=== PATIENT | female | born 1965 | race Caucasian/White ===

== ENCOUNTER 2017-03-14 06:42 | Emergency (ER) | payer OTHER ==
[~2017-03-14] VITALS: Ht 154.9 cm; Wt 102.1 kg
[~2017-03-14 06:42] MED LIST: ALBU0.084; AMIT PO; ASPI-231 PO; ENAL5TAB92 PO; FLUT500M2 INH; HOME O2; HYDR25TA4 PO; LEVO25TA9 PO; LEVO750T2 PO; METH40TA13 PO; METO-169 PO; MULTTAB61 PO; NIFE30TA76 PO; PANT40TA2 PO
[2017-03-14 07:39] LABS: Basophils # (auto) 0.1 uL; CONDITION Y; Eosinophils # (auto) 0.1 uL; Eosinophils % (auto) 1.9 % (0.0-7.0); Hematocrit 45.1 % (36.0-46.0); Hemoglobin 14.9 g/dL (12.2-16.2); Lymphocytes # (auto) 2.4 uL; Lymphocytes % (auto) 40.8 % (10.0-50.0); Mean Corpuscular Hemoglobin 29.5 pg (28.0-32.0); Mean Corpuscular Hgb Conc. 32.9 g/dL (32.0-36.0); Mean Corpuscular Volume 89.7 fL (80.0-100.0); Mean Platelet Volume 8.2 fL (7.4-10.4); Monocytes # (auto) 0.5 uL; Monocytes % (auto) 7.9 % (0.0-12.0); Neutrophils # (auto) 2.9 uL; Neutrophils % (auto) 48.4 % (37.0-80.0); Platelet Count (auto) 238 10^3/uL (140-450); Red Cell Distribution Width 15.9 % (11.6-16.0)
[2017-03-14 07:52] LABS: Albumin 3.7 g/dL (3.4-5.0); BUN/Creatinine Ratio 25.4; Bilirubin, Total 0.5 mg/dL (0.2-1.0); Calcium 8.8 mg/dL (8.5-10.1); Potassium 4.1 mmol/L (3.5-5.1); Total Protein 8.1 g/dL (6.4-8.2)
[2017-03-14] MEDS ORDERED: HYDROcodone-ACET 10/325MG TAB PO ONE (09:15)
[2017-03-14 09:50] VITALS: BP 131/77
== END 2017-03-14 10:11 | disposition home or self-care (01) ==
LOC: ER 06:44
DX: L03.115 Cellulitis of right lower limb (principal); F17.210 Nicotine dependence, cigarettes, uncomplicated; J44.9 Chronic obstructive pulmonary disease, unspecified; I50.9 Heart failure, unspecified; I11.0 Hypertensive heart disease with heart failure; E11.9 Type 2 diabetes mellitus without complications; E78.5 Hyperlipidemia, unspecified; E07.9 Disorder of thyroid, unspecified; Z79.82 Long term (current) use of aspirin; Z79.899 Other long term (current) drug therapy
CPT/HCPCS: 36415; 73610; 80053; 85025

== ENCOUNTER 2017-06-28 10:42 | Inpatient (IN) | payer OTHER ==
[~2017-06-28] VITALS: Ht 154.9 cm; Wt 115.9 kg
[2017-06-28] MEDS ORDERED: SODIUM CHLORIDE 0.9% 1,000 ML IVB ONE ×2 (11:28→13:27)
[2017-06-28 11:34] LABS: Urine Bilirubin Negative (Negative); Urine Blood Negative /uL (Negative); Urine Color Yellow (Yellow); Urine Glucose 2+ mg/dL (Normal); Urine Ketone Negative (Negative); Urine Mucus FEW (None Seen); Urine Nitrite Negative (Negative); Urine RBC 1 /hpf (0 - 4); Urine Squamous Epithelial Cell FEW /hpf (<5); Urine Urobilinogen Normal (Negative); Urine pH 5.5 (5.0-8.0)
[2017-06-28 11:48] LABS: Basophils # (auto) 0 uL; Basophils % (auto) 0.4 % (0.0-2.0); Eosinophils # (auto) 0 uL; Eosinophils % (auto) 0.3 % (0.0-7.0); Hematocrit 44.5 % (36.0-46.0); Hemoglobin 14.1 g/dL (12.2-16.2); Lymphocytes # (auto) 0.7 uL; Lymphocytes % (auto) 5.8 % (10.0-50.0); Mean Corpuscular Hemoglobin 29.5 pg (28.0-32.0); Mean Corpuscular Hgb Conc. 31.7 g/dL (32.0-36.0); Mean Corpuscular Volume 93.2 fL (80.0-100.0); Mean Platelet Volume 8.1 fL (6.9-10.8); Monocytes # (auto) 0.1 uL; Monocytes % (auto) 1.1 % (0.0-12.0); Neutrophils # (auto) 10.7 uL; Neutrophils % (auto) 92.4 % (37.0-80.0); Platelet Count (auto) 244 10^3/uL (140-450); Red Cell Distribution Width 15.4 % (11.8-14.3); White Blood Cell 11.6 10^3/uL (4.4-10.8)
[2017-06-28 12:01] LABS: Salicylate 2.3 mg/dL (2.8-20.0)
[2017-06-28 12:06] LABS: Acetaminophen < 2.0 ug/mL (10-30)
[2017-06-28 12:19] LABS: Albumin 3.5 g/dL (3.4-5.0); Alkaline Phosphatase 94 U/L (45-117); Anion Gap 8 (5-15); Aspartate Aminotransferase 28 U/L (15-37); BUN/Creatinine Ratio 21.6; Bilirubin, Total 0.3 mg/dL (0.2-1.0); Blood Urea Nitrogen 21 mg/dL (7-18); Calcium 8.5 mg/dL (8.5-10.1); Carbon Dioxide 36 mmol/L (21-32); Chloride 96 mmol/L (98-107); GFR African American 78 mL/min; GFR Non-African American 64 mL/min; Glucose 255 mg/dL (74-106); Potassium 3.5 mmol/L (3.5-5.1); Sodium 140 mmol/L (136-145)
[2017-06-28] MEDS ORDERED: IPRATROPIUM BROM 0.5 MG/2.5ML INH SOL NEB ONE (14:45)
[2017-06-28] MEDS ORDERED: ALBUTEROL SULF 2.5 MG/0.5ML(0.5%) NEB SOLN NEB ONE (14:45)
[2017-06-28] MEDS ORDERED: methylPREDNISolone SOD SUCC 125 MG/2 ML VL IV ONE (14:45)
[2017-06-28] MEDS ORDERED: cefTRIAXone 1GM/50ML D5W AE IV ONE (15:30)
[2017-06-28] MEDS ORDERED: NITROGLYCERIN 0.4 MG SL TAB SL PRN (16:00)
[2017-06-28] MEDS ORDERED: ALBUTEROL SULF 2.5 MG/0.5ML(0.5%) NEB SOLN NEB PRN (16:00)
[2017-06-28] MEDS ORDERED: LACTULOSE 20Gm/30ML SOLN PO PRN (16:00)
[2017-06-28] MEDS ORDERED: MORPHINE SULF INJ 2 MG/ML SYRINGE 1ML IV PRN ×2 (16:00)
[2017-06-28] MEDS ORDERED: LORazepam 0.5 MG TAB PO PRN (16:00)
[2017-06-28] MEDS ORDERED: DEXTROSE (50%) 50ML SYRG IV PRN (16:00)
[2017-06-28] MEDS: InsuLIN REG 1unit/0.01ml Soln (100units/ml) SC SCH ×2 (16:00→20:25)
[2017-06-28] MEDS ORDERED: PROMETHAZINE HCL 25 MG/ML 1ML IV PRN (16:00)
[2017-06-28] MEDS: SODIUM CHLORIDE 0.9% 1,000 ML IV SCH (16:16)
[2017-06-28] MEDS: ACCU-CHEK COMFORT CURVE STRIP VI SCH ×2 (16:21→20:25)
[2017-06-28] MEDS: AZITHROMYCIN 500MG/D5W 250ML 250 ML IV SCH (16:47)
[2017-06-28] MEDS: ACETAMINOPHEN 500 MG TAB PO PRN (16:52)
[2017-06-28] MEDS: methylPREDNISolone SOD SUCC 40 MG/ML VL IV SCH (18:15)
[2017-06-28] MEDS: IPRATROPIUM BROM 0.5 MG/2.5ML INH SOL NEB SCH (19:28)
[2017-06-28] MEDS: ALBUTEROL SULF 2.5 MG/0.5ML(0.5%) NEB SOLN NEB SCH (19:28)
[2017-06-28 21:02] VITALS: BP 130/86
[2017-06-28 21:26] VITALS: BP 110/67
[2017-06-28 22:00] VITALS: BP 110/67
[2017-06-28] MEDS: PATIENTS OWN MEDICATION (Fluticasone-Salmeterol (Advair Diskus 500/50) 1 PUFF) INH SCH (22:00)
[2017-06-28] MEDS: ENOXAPARIN SOD 40 MG/0.4 ML SYRINGE SC SCH (22:05)
[2017-06-28] MEDS: HYDROcodone-ACET 5/325MG TAB PO PRN (22:10)
[2017-06-29] MEDS: IPRATROPIUM BROM 0.5 MG/2.5ML INH SOL NEB SCH ×4 (00:21→19:58)
[2017-06-29] MEDS: ALBUTEROL SULF 2.5 MG/0.5ML(0.5%) NEB SOLN NEB SCH ×4 (00:21→19:58)
[2017-06-29] MEDS: ACCU-CHEK COMFORT CURVE STRIP VI SCH ×6 (00:29→20:21)
[2017-06-29] MEDS: InsuLIN REG 1unit/0.01ml Soln (100units/ml) SC SCH ×6 (00:29→20:22)
[2017-06-29] MEDS: methylPREDNISolone SOD SUCC 40 MG/ML VL IV SCH ×4 (00:29→16:57)
[2017-06-29 05:00] VITALS: BP 130/72
[2017-06-29] MEDS: SODIUM CHLORIDE 0.9% 1,000 ML IV SCH ×2 (05:10→16:57)
[2017-06-29] MEDS: LEVOTHYROXINE SODIUM 100 MCG TAB PO SCH (05:55)
[2017-06-29 06:13] LABS: Basophils # (auto) 0 uL; Basophils % (auto) 0.1 % (0.0-2.0); Eosinophils # (auto) 0 uL; Hematocrit 41.9 % (36.0-46.0); Hemoglobin 13.4 g/dL (12.2-16.2); Lymphocytes # (auto) 0.5 uL; Mean Corpuscular Hemoglobin 29.3 pg (28.0-32.0); Mean Corpuscular Hgb Conc. 31.9 g/dL (32.0-36.0); Mean Corpuscular Volume 91.6 fL (80.0-100.0); Mean Platelet Volume 7.8 fL (6.9-10.8); Monocytes # (auto) 0.2 uL; Monocytes % (auto) 1.5 % (0.0-12.0); Neutrophils # (auto) 11.8 uL; Neutrophils % (auto) 94.4 % (37.0-80.0); Platelet Count (auto) 238 10^3/uL (140-450); Red Cell Distribution Width 15.2 % (11.8-14.3); White Blood Cell 12.5 10^3/uL (4.4-10.8)
[2017-06-29 06:38] LABS: Chloride 101 mmol/L (98-107); Potassium 4.7 mmol/L (3.5-5.1); Sodium 141 mmol/L (136-145)
[2017-06-29 06:58] LABS: Alkaline Phosphatase 78 U/L (45-117); Anion Gap 5 (5-15); Aspartate Aminotransferase 22 U/L (15-37); BUN/Creatinine Ratio 35.6; Blood Urea Nitrogen 26 mg/dL (7-18); Calcium 8.3 mg/dL (8.5-10.1); Carbon Dioxide 35 mmol/L (21-32); GFR African American 108 mL/min; GFR Non-African American 89 mL/min; Glucose 81 mg/dL (74-106)
[2017-06-29 06:59] LABS: Bilirubin, Total 0.3 mg/dL (0.2-1.0); Cholesterol 170 mg/dL (< 200); HDL Cholesterol 53 mg/dL (40-59); LDL Cholesterol 108 mg/dL (< 100); Triglycerides 71 mg/dL (< 150)
[2017-06-29 07:00] LABS: Albumin 3.4 g/dL (3.4-5.0); Total Protein 7.6 g/dL (6.4-8.2)
[2017-06-29] MEDS: cefTRIAXone 1GM/50ML D5W 50 ML IV SCH (08:38)
[2017-06-29] MEDS ORDERED: METHADONE PO SCH (10:00)
[2017-06-29] MEDS ORDERED: ENOXAPARIN SOD 40 MG/0.4 ML SYRINGE SC SCH (10:00)
[2017-06-29] MEDS: PATIENTS OWN MEDICATION (Fluticasone-Salmeterol (Advair Diskus 500/50) 1 PUFF) INH SCH ×2 (10:00→22:00)
[2017-06-29] MEDS: AMITRIPTYLINE HCL 10 MG TAB PO SCH (10:00)
[2017-06-29] MEDS ORDERED: PANTOPRAZOLE 40 MG TAB PO SCH (10:00)
[2017-06-29] MEDS: ENOXAPARIN SOD 40 MG/0.4 ML SYRINGE SC SCH ×2 (10:19→22:13)
[2017-06-29] MEDS: ENALAPRIL MALEATE 2.5 MG TAB PO SCH (10:21)
[2017-06-29] MEDS: METOPROLOL SUCCINATE XL 50 MG TAB PO SCH (10:23)
[2017-06-29] MEDS: METHADONE HCL 10 MG TAB PO SCH (10:23)
[2017-06-29] MEDS: PANTOPRAZOLE 40 MG TAB PO SCH (10:23)
[2017-06-29] MEDS: ASPirin-EC 81 mg tab PO SCH (10:24)
[2017-06-29] MEDS: NIFEdipine ER 30 MG TAB PO SCH (10:24)
[2017-06-29] MEDS: MULTIPLE VITAMIN TAB PO SCH (10:25)
[2017-06-29] MEDS: AZITHROMYCIN 500MG/D5W 250ML 250 ML IV SCH (10:25)
[2017-06-29 10:59] LABS: B-Type Natriuretic Peptide 70.3 pg/mL (0-100); Temperature: 22.2 C (20.0-25.0)
[2017-06-29] MEDS: FUROSEMIDE 40 MG/4 ML VIAL IV SCH (11:08)
[2017-06-29] MEDS: POTASSIUM CHL 20 Meq TABLET PO SCH (11:08)
[2017-06-29] MEDS: HYDROcodone-ACET 5/325MG TAB PO PRN (11:48)
[2017-06-29 16:53] VITALS: BP 126/78
[2017-06-29 22:00] VITALS: BP 127/77
[2017-06-30] MEDS: methylPREDNISolone SOD SUCC 40 MG/ML VL IV SCH ×2 (00:23→05:51)
[2017-06-30] MEDS: ACCU-CHEK COMFORT CURVE STRIP VI SCH ×6 (00:23→20:49)
[2017-06-30] MEDS: HYDROcodone-ACET 5/325MG TAB PO PRN ×3 (00:24→22:25)
[2017-06-30] MEDS: ALBUTEROL SULF 2.5 MG/0.5ML(0.5%) NEB SOLN NEB SCH ×4 (01:02→19:24)
[2017-06-30] MEDS: IPRATROPIUM BROM 0.5 MG/2.5ML INH SOL NEB SCH ×4 (01:02→19:23)
[2017-06-30] MEDS: InsuLIN REG 1unit/0.01ml Soln (100units/ml) SC SCH ×6 (03:41→20:49)
[2017-06-30 05:00] VITALS: BP 112/77
[2017-06-30] MEDS: SODIUM CHLORIDE 0.9% 1,000 ML IV SCH ×2 (05:12→22:25)
[2017-06-30] MEDS: LEVOTHYROXINE SODIUM 100 MCG TAB PO SCH (05:52)
[2017-06-30 06:54] LABS: Basophils # (auto) 0 uL; Eosinophils # (auto) 0 uL; Hematocrit 39.7 % (36.0-46.0); Hemoglobin 12.7 g/dL (12.2-16.2); Lymphocytes # (auto) 0.6 uL; Lymphocytes % (auto) 3.2 % (10.0-50.0); Mean Corpuscular Hemoglobin 29.3 pg (28.0-32.0); Mean Corpuscular Hgb Conc. 31.9 g/dL (32.0-36.0); Mean Corpuscular Volume 91.9 fL (80.0-100.0); Monocytes # (auto) 0.4 uL; Monocytes % (auto) 2.1 % (0.0-12.0); Neutrophils # (auto) 17.9 uL; Neutrophils % (auto) 94.7 % (37.0-80.0); Platelet Count (auto) 249 10^3/uL (140-450); Red Cell Distribution Width 15.6 % (11.8-14.3); White Blood Cell 18.9 10^3/uL (4.4-10.8)
[2017-06-30 07:07] LABS: Potassium 4.9 mmol/L (3.5-5.1)
[2017-06-30 07:08] LABS: Albumin 3.4 g/dL (3.4-5.0); Calcium 8.6 mg/dL (8.5-10.1)
[2017-06-30 07:11] LABS: Bilirubin, Total 0.3 mg/dL (0.2-1.0); Total Protein 7.4 g/dL (6.4-8.2)
[2017-06-30 07:13] LABS: Temperature: 21.5 C (20.0-25.0)
[2017-06-30 09:00] VITALS: BP 131/75
[2017-06-30] MEDS: cefTRIAXone 1GM/50ML D5W 50 ML IV SCH (09:01)
[2017-06-30] MEDS: ACETAMINOPHEN 500 MG TAB PO PRN (09:02)
[2017-06-30] MEDS: AZITHROMYCIN 500MG/D5W 250ML 250 ML IV SCH (09:40)
[2017-06-30] MEDS: ASPirin-EC 81 mg tab PO SCH (09:40)
[2017-06-30] MEDS: FUROSEMIDE 40 MG/4 ML VIAL IV SCH (09:40)
[2017-06-30] MEDS: METHADONE HCL 10 MG TAB PO SCH (09:41)
[2017-06-30] MEDS: MULTIPLE VITAMIN TAB PO SCH (09:41)
[2017-06-30] MEDS: POTASSIUM CHL 20 Meq TABLET PO SCH (09:41)
[2017-06-30] MEDS: NIFEdipine ER 30 MG TAB PO SCH (09:41)
[2017-06-30] MEDS: METOPROLOL SUCCINATE XL 50 MG TAB PO SCH (09:42)
[2017-06-30] MEDS: PANTOPRAZOLE 40 MG TAB PO SCH (09:42)
[2017-06-30] MEDS: ENOXAPARIN SOD 40 MG/0.4 ML SYRINGE SC SCH ×2 (09:43→22:25)
[2017-06-30] MEDS: ENALAPRIL MALEATE 2.5 MG TAB PO SCH (09:43)
[2017-06-30] MEDS: AMITRIPTYLINE HCL 10 MG TAB PO SCH (10:00)
[2017-06-30] MEDS ORDERED: methylPREDNISolone SOD SUCC 40 MG/ML VL IV SCH (12:00)
[2017-06-30] MEDS: PIPERACILLIN-TAZOB 3.375GM 100 ML IV SCH ×2 (12:07→17:45)
[2017-06-30] MEDS: methylPREDNISolone SOD SUCC 125 MG/2 ML VL IV SCH ×2 (12:07→17:44)
[2017-06-30 13:20] VITALS: BP 130/93
[2017-06-30 13:28] LABS: Base Excess 9.7 mmol/L (-2.0-2.0); Blood 02Sat 90.7 % (96-100); Blood COHb 0.5 % (0.5-1.5); Blood MetHb 0.3 % (0.0-1.5); HCO3 37.2 mmol/L (22-26.0); HHb 9.2 % (0.0-5.0); MODE OXYMIZER; PCO2 63.7 mmHg (35.0-45.0); PCO2(T) 63.7 mmHg (35.0-45.0); PO2 62.6 mmHg (80.0-100.0); PO2(T) 62.6 mmHg (80.0-100.0); Room 0283T; Sample Type Arterial; pH 7.384 (7.350-7.450)
[2017-06-30 17:42] VITALS: BP 136/87
[2017-06-30 22:00] VITALS: BP 141/82
[2017-07-01] MEDS: PIPERACILLIN-TAZOB 3.375GM 100 ML IV SCH ×5 (00:25→23:38)
[2017-07-01] MEDS: methylPREDNISolone SOD SUCC 125 MG/2 ML VL IV SCH ×5 (00:25→23:38)
[2017-07-01] MEDS: InsuLIN REG 1unit/0.01ml Soln (100units/ml) SC SCH ×5 (00:36→22:03)
[2017-07-01] MEDS: ACCU-CHEK COMFORT CURVE STRIP VI SCH ×5 (00:36→22:03)
[2017-07-01 05:00] VITALS: BP 118/97
[2017-07-01] MEDS: LEVOTHYROXINE SODIUM 100 MCG TAB PO SCH (05:46)
[2017-07-01] MEDS: HYDROcodone-ACET 5/325MG TAB PO PRN ×2 (05:46→21:56)
[2017-07-01] MEDS: IPRATROPIUM BROM 0.5 MG/2.5ML INH SOL NEB SCH ×4 (06:33→19:52)
[2017-07-01] MEDS: ALBUTEROL SULF 2.5 MG/0.5ML(0.5%) NEB SOLN NEB SCH ×4 (06:33→19:52)
[2017-07-01] MEDS ORDERED: DEXTROSE (50%) 50ML SYRG IV PRN (07:45)
[2017-07-01 09:00] VITALS: BP 128/71
[2017-07-01] MEDS: LEVOFLOXACIN 750MG 150 ML IV SCH (09:58)
[2017-07-01] MEDS: FUROSEMIDE 40 MG/4 ML VIAL IV SCH (09:58)
[2017-07-01] MEDS: POTASSIUM CHL 20 Meq TABLET PO SCH (09:59)
[2017-07-01] MEDS: METHADONE HCL 10 MG TAB PO SCH (09:59)
[2017-07-01] MEDS: ASPirin-EC 81 mg tab PO SCH (09:59)
[2017-07-01] MEDS: MULTIPLE VITAMIN TAB PO SCH (09:59)
[2017-07-01] MEDS: METOPROLOL SUCCINATE XL 50 MG TAB PO SCH (10:00)
[2017-07-01] MEDS: AMITRIPTYLINE HCL 10 MG TAB PO SCH (10:00)
[2017-07-01] MEDS: NIFEdipine ER 30 MG TAB PO SCH (10:00)
[2017-07-01] MEDS: PANTOPRAZOLE 40 MG TAB PO SCH (10:00)
[2017-07-01] MEDS: ENOXAPARIN SOD 40 MG/0.4 ML SYRINGE SC SCH ×2 (10:01→21:55)
[2017-07-01] MEDS: ENALAPRIL MALEATE 2.5 MG TAB PO SCH (10:01)
[2017-07-01 13:00] VITALS: BP 136/81
[2017-07-01] MEDS: SODIUM CHLORIDE 0.9% 1,000 ML IV SCH ×2 (15:47→23:38)
[2017-07-01 17:00] VITALS: BP 149/93
[2017-07-01] MEDS: BUDESONIDE (INHALATION) 0.5 MG/2 ML NEB NEB SCH (19:53)
[2017-07-01 22:00] VITALS: BP 138/89
[2017-07-02] MEDS: methylPREDNISolone SOD SUCC 125 MG/2 ML VL IV SCH ×4 (06:04→23:34)
[2017-07-02] MEDS: PIPERACILLIN-TAZOB 3.375GM 100 ML IV SCH ×4 (06:04→23:34)
[2017-07-02] MEDS: LEVOTHYROXINE SODIUM 100 MCG TAB PO SCH (06:04)
[2017-07-02] MEDS: ACCU-CHEK COMFORT CURVE STRIP VI SCH ×4 (06:04→22:00)
[2017-07-02] MEDS: InsuLIN REG 1unit/0.01ml Soln (100units/ml) SC SCH ×4 (06:05→23:00)
[2017-07-02] MEDS: IPRATROPIUM BROM 0.5 MG/2.5ML INH SOL NEB SCH ×4 (06:06→19:51)
[2017-07-02] MEDS: ALBUTEROL SULF 2.5 MG/0.5ML(0.5%) NEB SOLN NEB SCH ×4 (06:06→19:52)
[2017-07-02] MEDS: HYDROcodone-ACET 5/325MG TAB PO PRN ×3 (07:58→23:02)
[2017-07-02 09:12] VITALS: BP_SYST 138; BP_SYST 142; BP_DIAS 77; BP_DIAS 78
[2017-07-02] MEDS: LEVOFLOXACIN 750MG 150 ML IV SCH (09:29)
[2017-07-02] MEDS: ENOXAPARIN SOD 40 MG/0.4 ML SYRINGE SC SCH (09:29)
[2017-07-02] MEDS: FUROSEMIDE 40 MG/4 ML VIAL IV SCH (09:29)
[2017-07-02] MEDS: ENALAPRIL MALEATE 2.5 MG TAB PO SCH (09:30)
[2017-07-02] MEDS: METHADONE HCL 10 MG TAB PO SCH (09:30)
[2017-07-02] MEDS: POTASSIUM CHL 20 Meq TABLET PO SCH (09:30)
[2017-07-02] MEDS: PANTOPRAZOLE 40 MG TAB PO SCH (09:31)
[2017-07-02] MEDS: MULTIPLE VITAMIN TAB PO SCH (09:31)
[2017-07-02] MEDS: ASPirin-EC 81 mg tab PO SCH (09:31)
[2017-07-02] MEDS: NIFEdipine ER 30 MG TAB PO SCH (09:32)
[2017-07-02] MEDS: METOPROLOL SUCCINATE XL 50 MG TAB PO SCH (09:32)
[2017-07-02] MEDS: AMITRIPTYLINE HCL 10 MG TAB PO SCH (10:00)
[2017-07-02] MEDS: BUDESONIDE (INHALATION) 0.5 MG/2 ML NEB NEB SCH ×2 (10:05→19:52)
[2017-07-02 11:38] LABS: Hematocrit 41.1 % (36.0-46.0); Hemoglobin 13.4 g/dL (12.2-16.2); Mean Corpuscular Hemoglobin 29.6 pg (28.0-32.0); Mean Corpuscular Hgb Conc. 32.5 g/dL (32.0-36.0); Mean Corpuscular Volume 90.9 fL (80.0-100.0); Mean Platelet Volume 7.7 fL (6.9-10.8); Platelet Count (auto) 236 10^3/uL (140-450); Red Cell Distribution Width 15.1 % (11.8-14.3); White Blood Cell 9.3 10^3/uL (4.4-10.8)
[2017-07-02 11:42] LABS: Metamyelocytes % 0; Myelocytes % 0; Promyelocytes % 0; Reactive Lymphocytes 0
[2017-07-02 12:23] LABS: Platelet Estimate Adequate
[2017-07-02 12:51] VITALS: BP 154/100
[2017-07-02 13:00] VITALS: BP 148/72
[2017-07-02] MEDS: SODIUM CHLORIDE 0.9% 1,000 ML IV SCH (16:19)
[2017-07-02 17:52] VITALS: BP 147/90
[2017-07-02 20:00] VITALS: BP 121/55
[2017-07-02] MEDS: ENOXAPARIN SOD 60 MG/0.6 ML SYRINGE SC SCH (22:00)
[2017-07-02 23:16] VITALS: BP 145/83
[2017-07-02] MEDS: TEMAZEPAM 15 MG CAP PO PRN (23:35)
[2017-07-03] VITALS (8 sets, daily range): BP systolic 128–158; BP diastolic 71–113
[2017-07-03] MEDS: SODIUM CHLORIDE 0.9% 1,000 ML IV SCH ×2 (02:30→16:07)
[2017-07-03] MEDS: LEVOTHYROXINE SODIUM 100 MCG TAB PO SCH (05:32)
[2017-07-03] MEDS: methylPREDNISolone SOD SUCC 125 MG/2 ML VL IV SCH ×4 (05:32→23:06)
[2017-07-03] MEDS: PIPERACILLIN-TAZOB 3.375GM 100 ML IV SCH ×4 (05:32→23:09)
[2017-07-03] MEDS: IPRATROPIUM BROM 0.5 MG/2.5ML INH SOL NEB SCH ×4 (06:10→18:47)
[2017-07-03] MEDS: ALBUTEROL SULF 2.5 MG/0.5ML(0.5%) NEB SOLN NEB SCH ×4 (06:10→18:47)
[2017-07-03] MEDS: HYDROcodone-ACET 5/325MG TAB PO PRN ×3 (06:15→23:09)
[2017-07-03] MEDS: ACCU-CHEK COMFORT CURVE STRIP VI SCH ×4 (06:25→22:00)
[2017-07-03] MEDS: InsuLIN REG 1unit/0.01ml Soln (100units/ml) SC SCH ×4 (06:25→23:06)
[2017-07-03] MEDS: BUDESONIDE (INHALATION) 0.5 MG/2 ML NEB NEB SCH ×2 (09:32→18:47)
[2017-07-03] MEDS: METOPROLOL SUCCINATE XL 50 MG TAB PO SCH (10:36)
[2017-07-03] MEDS: POTASSIUM CHL 20 Meq TABLET PO SCH (10:36)
[2017-07-03] MEDS: MULTIPLE VITAMIN TAB PO SCH (10:36)
[2017-07-03] MEDS: METHADONE HCL 10 MG TAB PO SCH (10:36)
[2017-07-03] MEDS: ASPirin-EC 81 mg tab PO SCH (10:37)
[2017-07-03] MEDS: NIFEdipine ER 30 MG TAB PO SCH (10:37)
[2017-07-03] MEDS: PANTOPRAZOLE 40 MG TAB PO SCH (10:38)
[2017-07-03] MEDS: ENALAPRIL MALEATE 2.5 MG TAB PO SCH (10:38)
[2017-07-03] MEDS: ENOXAPARIN SOD 60 MG/0.6 ML SYRINGE SC SCH ×2 (10:38→23:06)
[2017-07-03] MEDS: AMITRIPTYLINE HCL 10 MG TAB PO SCH (10:39)
[2017-07-03] MEDS: FUROSEMIDE 40 MG/4 ML VIAL IV SCH (10:39)
[2017-07-03] MEDS: LEVOFLOXACIN 750MG 150 ML IV SCH (10:39)
[2017-07-03] MEDS: TEMAZEPAM 15 MG CAP PO PRN (23:09)
[2017-07-04] MEDS: ACETAMINOPHEN 500 MG TAB PO PRN (03:31)
[2017-07-04 05:00] VITALS: BP 126/62
[2017-07-04] MEDS: SODIUM CHLORIDE 0.9% 1,000 ML IV SCH ×2 (05:10→18:30)
[2017-07-04] MEDS: ALBUTEROL SULF 2.5 MG/0.5ML(0.5%) NEB SOLN NEB SCH ×4 (05:50→18:00)
[2017-07-04] MEDS: IPRATROPIUM BROM 0.5 MG/2.5ML INH SOL NEB SCH ×4 (05:51→18:00)
[2017-07-04] MEDS: BUDESONIDE (INHALATION) 0.5 MG/2 ML NEB NEB SCH ×2 (05:51→22:51)
[2017-07-04] MEDS: PIPERACILLIN-TAZOB 3.375GM 100 ML IV SCH ×2 (06:06→12:37)
[2017-07-04] MEDS: methylPREDNISolone SOD SUCC 125 MG/2 ML VL IV SCH ×2 (06:06→12:37)
[2017-07-04] MEDS: InsuLIN REG 1unit/0.01ml Soln (100units/ml) SC SCH ×4 (06:16→21:05)
[2017-07-04] MEDS: ACCU-CHEK COMFORT CURVE STRIP VI SCH ×4 (06:16→21:05)
[2017-07-04] MEDS: LEVOTHYROXINE SODIUM 100 MCG TAB PO SCH (06:16)
[2017-07-04 08:00] VITALS: BP 150/96
[2017-07-04] MEDS: ASPirin-EC 81 mg tab PO SCH (10:00)
[2017-07-04] MEDS: ENOXAPARIN SOD 60 MG/0.6 ML SYRINGE SC SCH (10:00)
[2017-07-04] MEDS: LEVOFLOXACIN 750MG 150 ML IV SCH (11:10)
[2017-07-04] MEDS: PANTOPRAZOLE 40 MG TAB PO SCH (11:11)
[2017-07-04] MEDS: FUROSEMIDE 40 MG/4 ML VIAL IV SCH (11:11)
[2017-07-04] MEDS: POTASSIUM CHL 20 Meq TABLET PO SCH (11:11)
[2017-07-04] MEDS: MULTIPLE VITAMIN TAB PO SCH (11:11)
[2017-07-04] MEDS: NIFEdipine ER 30 MG TAB PO SCH (11:12)
[2017-07-04] MEDS: ENALAPRIL MALEATE 2.5 MG TAB PO SCH (11:12)
[2017-07-04] MEDS: METOPROLOL SUCCINATE XL 50 MG TAB PO SCH (11:13)
[2017-07-04] MEDS: METHADONE HCL 10 MG TAB PO SCH (11:14)
[2017-07-04] MEDS: AMITRIPTYLINE HCL 10 MG TAB PO SCH (12:38)
[2017-07-04 13:00] VITALS: BP 156/112
[2017-07-04] MEDS ORDERED: predniSONE 20 MG TAB PO ONE (16:15)
[2017-07-04 17:00] VITALS: BP 118/100
[2017-07-04] MEDS ORDERED: IOHEXOL 300 MG/ML 100ML BOTTLE IJ ONE (19:11)
[2017-07-04] MEDS: HYDROcodone-ACET 5/325MG TAB PO PRN (21:05)
[2017-07-04] MEDS: TEMAZEPAM 15 MG CAP PO PRN (21:06)
[2017-07-04 21:23] VITALS: BP 137/86
[2017-07-05 01:02] VITALS: BP 131/86
[2017-07-05] MEDS: LEVOTHYROXINE SODIUM 100 MCG TAB PO SCH (05:34)
[2017-07-05 05:46] VITALS: BP 126/80
[2017-07-05] MEDS: InsuLIN REG 1unit/0.01ml Soln (100units/ml) SC SCH ×2 (06:11→11:30)
[2017-07-05] MEDS: ACCU-CHEK COMFORT CURVE STRIP VI SCH ×2 (06:11→11:30)
[2017-07-05] MEDS: ALBUTEROL SULF 2.5 MG/0.5ML(0.5%) NEB SOLN NEB SCH ×3 (06:35→14:00)
[2017-07-05] MEDS: IPRATROPIUM BROM 0.5 MG/2.5ML INH SOL NEB SCH ×3 (06:35→14:00)
[2017-07-05 07:48] VITALS: BP 121/74
[2017-07-05 08:00] VITALS: BP 121/74
[2017-07-05] MEDS: HYDROcodone-ACET 5/325MG TAB PO PRN ×2 (08:01→14:38)
[2017-07-05] MEDS: FUROSEMIDE 40 MG/4 ML VIAL IV SCH (09:53)
[2017-07-05] MEDS: NIFEdipine ER 30 MG TAB PO SCH (09:54)
[2017-07-05] MEDS: MULTIPLE VITAMIN TAB PO SCH (09:54)
[2017-07-05] MEDS: BUDESONIDE (INHALATION) 0.5 MG/2 ML NEB NEB SCH (09:54)
[2017-07-05] MEDS: POTASSIUM CHL 20 Meq TABLET PO SCH (09:54)
[2017-07-05] MEDS: ENALAPRIL MALEATE 2.5 MG TAB PO SCH (09:55)
[2017-07-05] MEDS: PANTOPRAZOLE 40 MG TAB PO SCH (09:55)
[2017-07-05] MEDS: ASPirin-EC 81 mg tab PO SCH (09:55)
[2017-07-05] MEDS: METHADONE HCL 10 MG TAB PO SCH (09:56)
[2017-07-05] MEDS: METOPROLOL SUCCINATE XL 50 MG TAB PO SCH (10:00)
[2017-07-05] MEDS ORDERED: predniSONE 20 MG TAB PO SCH (10:00)
[2017-07-05] MEDS: AMITRIPTYLINE HCL 10 MG TAB PO SCH (10:00)
[2017-07-05 12:31] VITALS: BP 142/86
[2017-07-05 16:14] LABS: Allen Test Modified; Blood 02Sat 81.2 % (96-100); Blood COHb 0.8 % (0.5-1.5); Blood MetHb 0.1 % (0.0-1.5); HCO3 40.5 mmol/L (22-26.0); HHb 18.6 % (0.0-5.0); MODE ROOM AIR; O2Hb 80.5 % (94.0-97.0); PCO2 63.8 mmHg (35.0-45.0); PCO2(T) 63.8 mmHg (35.0-45.0); PO2 45.5 mmHg (80.0-100.0); PO2(T) 45.5 mmHg (80.0-100.0); Room 0297T; Sample Type Arterial; pH 7.421 (7.350-7.450)
[2017-07-05 16:57] VITALS: BP 139/86
== END 2017-07-05 18:25 | disposition home or self-care (01) | DRG 139 ==
LOC: ER 10:42 → EDBD 10:42 → TELE 10:43 → TELE-WESTW 20:05
PROVIDERS: ADMIT Internal Medicine; ATTEND Internal Medicine Pulmonary Disease
DX: J18.1 Lobar pneumonia, unspecified organism (principal); J96.12 Chronic respiratory failure with hypercapnia; I11.0 Hypertensive heart disease with heart failure; I50.9 Heart failure, unspecified; J44.0 Chronic obstructive pulmonary disease with (acute) lower respiratory infection; J44.1 Chronic obstructive pulmonary disease with (acute) exacerbation; N39.0 Urinary tract infection, site not specified; F41.9 Anxiety disorder, unspecified; E78.5 Hyperlipidemia, unspecified; E11.65 Type 2 diabetes mellitus with hyperglycemia; F17.210 Nicotine dependence, cigarettes, uncomplicated; R04.0 Epistaxis; F32.9 Major depressive disorder, single episode, unspecified; K76.9 Liver disease, unspecified; Y95 Nosocomial condition; E03.9 Hypothyroidism, unspecified; E66.01 Morbid (severe) obesity due to excess calories; Z68.42 Body mass index [BMI] 45.0-49.9, adult; Z99.81 Dependence on supplemental oxygen; Z82.49 Family history of ischemic heart disease and other diseases of the circulatory system; Z83.3 Family history of diabetes mellitus; Z83.42 Family history of familial hypercholesterolemia; Z79.82 Long term (current) use of aspirin; Z79.899 Other long term (current) drug therapy
CPT/HCPCS: 36415; 36600; 71010; 71020; 74178; 80053; 80061; 80307; 80320; 80329; 81001; 82550; 82565; 82805; 82962; 83036; 83605; 83735; 83880; 84484; 85007; 85025; 85027; 85379; 87040; 87081; 87086; 87400; 93005; 93971; 94640; 94644; 94761; J0696; J1815; J1956; J2543

== ENCOUNTER 2017-07-25 09:17 | Inpatient (IN) | payer OTHER ==
[~2017-07-25] VITALS: Ht 152.4 cm; Wt 110.0 kg
[2017-07-25] MEDS ORDERED: SODIUM CHLORIDE 0.9% 1,000 ML IV ONE (10:37)
[2017-07-25] MEDS ORDERED: methylPREDNISolone SOD SUCC 125 MG/2 ML VL IV ONE (10:45)
[2017-07-25] MEDS ORDERED: ALBUTEROL SULF 2.5 MG/0.5ML(0.5%) NEB SOLN HHN ONE (10:45)
[2017-07-25] MEDS ORDERED: IPRATROPIUM BROM 0.5 MG/2.5ML INH SOL HHN ONE (10:45)
[2017-07-25 11:26] LABS: Basophils # (auto) 0 uL; Basophils % (auto) 0.6 % (0.0-2.0); Eosinophils # (auto) 0.1 uL; Eosinophils % (auto) 1.4 % (0.0-7.0); Hematocrit 38.5 % (36.0-46.0); Hemoglobin 12.3 g/dL (12.2-16.2); Lymphocytes # (auto) 2.2 uL; Mean Corpuscular Hemoglobin 29.1 pg (28.0-32.0); Mean Corpuscular Hgb Conc. 31.8 g/dL (32.0-36.0); Mean Corpuscular Volume 91.4 fL (80.0-100.0); Monocytes # (auto) 0.4 uL; Monocytes % (auto) 8.2 % (0.0-12.0); Neutrophils # (auto) 2.2 uL; Neutrophils % (auto) 44.8 % (37.0-80.0); Nucleated Red Blood Cells % 0.1 %; Platelet Count (auto) 245 10^3/uL (140-450); Red Blood Cells 4.21 10^6/uL (4.0-5.20); Red Cell Distribution Width 16.2 % (11.8-14.3); White Blood Cell 4.9 10^3/uL (4.4-10.8)
[2017-07-25 11:54] LABS: Albumin 3.5 g/dL (3.4-5.0); BUN/Creatinine Ratio 21.4; Bilirubin, Total 0.6 mg/dL (0.2-1.0); Calcium 8.8 mg/dL (8.5-10.1); Potassium 4.1 mmol/L (3.5-5.1); Total Protein 7.6 g/dL (6.4-8.2)
[2017-07-25] MEDS ORDERED: PROMETHAZINE HCL 25 MG/ML 1ML IV PRN (12:00)
[2017-07-25] MEDS ORDERED: ALBUTEROL SULF 2.5 MG/0.5ML(0.5%) NEB SOLN NEB PRN (12:00)
[2017-07-25] MEDS ORDERED: MORPHINE SULFATE 10 MG/ML INJ 1ML SDV IV PRN ×3 (12:00→12:30)
[2017-07-25] MEDS ORDERED: LACTULOSE 20Gm/30ML SOLN PO PRN (12:00)
[2017-07-25] MEDS: IPRATROPIUM BROM 0.5 MG/2.5ML INH SOL NEB SCH ×2 (12:00→18:30)
[2017-07-25] MEDS ORDERED: TEMAZEPAM 15 MG CAP PO PRN (12:00)
[2017-07-25] MEDS ORDERED: ACETAMINOPHEN 500 MG TAB PO PRN (12:00)
[2017-07-25] MEDS ORDERED: SODIUM CHLORIDE 0.9% 1,000 ML IV SCH ×2 (12:00→17:20)
[2017-07-25] MEDS ORDERED: ALBUTEROL SULF 2.5 MG/0.5ML(0.5%) NEB SOLN NEB SCH (12:00)
[2017-07-25] MEDS: methylPREDNISolone SOD SUCC 40 MG/ML VL IV SCH (12:00)
[2017-07-25] MEDS ORDERED: DEXTROSE (50%) 50ML SYRG IV PRN (12:00)
[2017-07-25] MEDS ORDERED: METHADONE HCL 10 MG TAB PO SCH (12:15)
[2017-07-25] MEDS ORDERED: AMITRIPTYLINE HCL 10 MG TAB PO ONE ×2 (12:15→12:30)
[2017-07-25] MEDS ORDERED: ENALAPRIL MALEATE 2.5 MG TAB PO ONE (12:30)
[2017-07-25] MEDS ORDERED: ASPirin 81 mg TAB PO ONE (12:30)
[2017-07-25] MEDS ORDERED: ENOXAPARIN SOD 40 MG/0.4 ML SYRINGE SC ONE (12:30)
[2017-07-25] MEDS ORDERED: MULTIPLE VITAMIN TAB PO ONE (12:30)
[2017-07-25] MEDS ORDERED: METHADONE HCL 10 MG TAB PO ONE ×3 (12:30→13:00)
[2017-07-25] MEDS ORDERED: LEVOTHYROXINE SODIUM 25 MCG TAB PO ONE (12:30)
[2017-07-25] MEDS ORDERED: NIFEdipine ER 30 MG TAB PO ONE (12:30)
[2017-07-25] MEDS ORDERED: HCTZ 25 MG TAB PO ONE (12:30)
[2017-07-25] MEDS ORDERED: PANTOPRAZOLE 40 MG TAB PO ONE (12:30)
[2017-07-25] MEDS: DOXYCYCLINE HYC 100MG/250ML 250 ML IV SCH (12:57)
[2017-07-25] MEDS: HYDROcodone-ACET 5/325MG TAB PO PRN (13:00)
[2017-07-25] MEDS: LORazepam 0.5 MG TAB PO PRN (13:00)
[2017-07-25] MEDS ORDERED: LEVOTHYROXINE SODIUM 100 MCG TAB PO ONE (13:00)
[2017-07-25] MEDS: CLINDAMYCIN 600MG IV 50 ML IV SCH ×2 (14:14→21:58)
[2017-07-25 15:57] VITALS: BP 152/63
[2017-07-25] MEDS: InsuLIN REG 1unit/0.01ml Soln (100units/ml) SC SCH ×2 (16:42→22:10)
[2017-07-25] MEDS: ACCU-CHEK COMFORT CURVE STRIP VI SCH ×2 (16:42→21:59)
[2017-07-25 17:27] VITALS: BP 130/69
[2017-07-25 18:11] LABS: Urine Bacteria NONE SEEN /hpf (None Seen); Urine Blood Negative /uL (Negative); Urine Hyaline Cast FEW /lpf (0 - 2); Urine Mucus FEW (None Seen); Urine Specific Gravity 1.018 (1.001-1.035); Urine WBC 2 /hpf (0 - 5)
[2017-07-25] MEDS: BUDESONIDE (INHALATION) 0.5 MG/2 ML NEB NEB SCH (18:30)
[2017-07-25] MEDS: ALBUTEROL SULF 2.5 MG/0.5ML(0.5%) NEB SOLN NEB SCH (18:30)
[2017-07-25 20:32] LABS: Alcohol, Urine < 3.0 mg/dL (0-5); Amphetamine Screen, Urine NEGATIVE (NEGATIVE); Barbiturate Scree,Urine NEGATIVE (NEGATIVE); Benzodiazephine Screen, Urine NEGATIVE (NEGATIVE); Cannabinoid Screen, Urine NEGATIVE (NEGATIVE); Cocaine Screen, Urine NEGATIVE (NEGATIVE); Opiate Scree,Urine POSITIVE (NEGATIVE); Phencyclidine Screen, Urine NEGATIVE (NEGATIVE)
[2017-07-25 22:00] VITALS: BP 113/57
[2017-07-25] MEDS ORDERED: METOPROLOL TARTRATE 25 MG TAB PO SCH (22:00)
[2017-07-26] MEDS: methylPREDNISolone SOD SUCC 40 MG/ML VL IV SCH ×3 (00:01→22:58)
[2017-07-26] MEDS: DOXYCYCLINE HYC 100MG/250ML 250 ML IV SCH ×2 (00:02→12:06)
[2017-07-26] MEDS: HYDROcodone-ACET 5/325MG TAB PO PRN ×2 (00:14→09:42)
[2017-07-26] MEDS: ALBUTEROL SULF 2.5 MG/0.5ML(0.5%) NEB SOLN NEB SCH ×3 (00:18→18:36)
[2017-07-26] MEDS: IPRATROPIUM BROM 0.5 MG/2.5ML INH SOL NEB SCH ×3 (00:18→18:36)
[2017-07-26] MEDS: BUDESONIDE (INHALATION) 0.5 MG/2 ML NEB NEB SCH ×3 (00:18→18:39)
[2017-07-26 05:00] VITALS: BP 99/67
[2017-07-26 05:57] LABS: Cholesterol 183 mg/dL (< 200); HDL Cholesterol 61 mg/dL (40-59); LDL Cholesterol 123 mg/dL (< 100); Triglycerides 59 mg/dL (< 150)
[2017-07-26] MEDS: CLINDAMYCIN 600MG IV 50 ML IV SCH ×2 (06:04→13:48)
[2017-07-26] MEDS: LEVOTHYROXINE SODIUM 100 MCG TAB PO SCH (06:04)
[2017-07-26] MEDS: ACCU-CHEK COMFORT CURVE STRIP VI SCH ×4 (06:04→22:00)
[2017-07-26] MEDS: InsuLIN REG 1unit/0.01ml Soln (100units/ml) SC SCH ×4 (06:21→22:00)
[2017-07-26] MEDS: HCTZ 25 MG TAB PO SCH (08:59)
[2017-07-26] MEDS: AMITRIPTYLINE HCL 10 MG TAB PO SCH (08:59)
[2017-07-26] MEDS: ASPirin 81 mg TAB PO SCH (08:59)
[2017-07-26] MEDS: FUROSEMIDE 40 MG/4 ML VIAL IV SCH (08:59)
[2017-07-26 09:00] VITALS: BP 106/66
[2017-07-26] MEDS: NIFEdipine ER 30 MG TAB PO SCH (09:00)
[2017-07-26] MEDS: POTASSIUM CHL 20 Meq TABLET PO SCH (09:00)
[2017-07-26] MEDS: MULTIPLE VITAMIN TAB PO SCH (09:00)
[2017-07-26] MEDS: PANTOPRAZOLE 40 MG TAB PO SCH (09:01)
[2017-07-26] MEDS: METOPROLOL SUCCINATE XL 50 MG TAB PO SCH (09:01)
[2017-07-26] MEDS: ENALAPRIL MALEATE 2.5 MG TAB PO SCH (09:01)
[2017-07-26] MEDS: ENOXAPARIN SOD 40 MG/0.4 ML SYRINGE SC SCH (09:02)
[2017-07-26] MEDS: LORazepam 0.5 MG TAB PO PRN (09:42)
[2017-07-26] MEDS ORDERED: METHADONE HCL 10 MG TAB PO SCH ×3 (10:00→12:45)
[2017-07-26] MEDS ORDERED: PANTOPRAZOLE 40 MG TAB PO SCH (10:00)
[2017-07-26 13:00] VITALS: BP 113/79
[2017-07-26 17:00] VITALS: BP 118/77
[2017-07-26] MEDS ORDERED: VANCOMYCIN PER PHARMACY 0 MG IV SCH (18:00)
[2017-07-26] MEDS: PIPERACILLIN-TAZOB 3.375GM 100 ML IV SCH ×2 (18:22→22:58)
[2017-07-26] MEDS: VANCOMYCIN 1,250 MG in D5W 5% 250 ML IV SCH (20:35)
[2017-07-26 22:22] VITALS: BP 109/67
[2017-07-27] MEDS: ALBUTEROL SULF 2.5 MG/0.5ML(0.5%) NEB SOLN NEB SCH ×4 (00:30→19:31)
[2017-07-27] MEDS: IPRATROPIUM BROM 0.5 MG/2.5ML INH SOL NEB SCH ×4 (00:30→19:31)
[2017-07-27] MEDS: DOXYCYCLINE HYC 100MG/250ML 250 ML IV SCH ×2 (01:27→12:25)
[2017-07-27 05:54] LABS: Basophils # (auto) 0 uL; Eosinophils # (auto) 0 uL; Hematocrit 37.7 % (36.0-46.0); Hemoglobin 11.8 g/dL (12.2-16.2); Mean Corpuscular Hemoglobin 28.9 pg (28.0-32.0); Mean Corpuscular Hgb Conc. 31.4 g/dL (32.0-36.0); Mean Corpuscular Volume 92.2 fL (80.0-100.0); Monocytes # (auto) 0.2 uL; Monocytes % (auto) 3.2 % (0.0-12.0); Neutrophils # (auto) 6.1 uL; Neutrophils % (auto) 83.8 % (37.0-80.0); Nucleated Red Blood Cells % 0.1 %; Platelet Count (auto) 273 10^3/uL (140-450); Red Blood Cells 4.09 10^6/uL (4.0-5.20); Red Cell Distribution Width 16.5 % (11.8-14.3); White Blood Cell 7.3 10^3/uL (4.4-10.8)
[2017-07-27 06:14] LABS: Potassium 4.7 mmol/L (3.5-5.1)
[2017-07-27] MEDS: PIPERACILLIN-TAZOB 3.375GM 100 ML IV SCH ×4 (06:17→23:17)
[2017-07-27 06:18] LABS: Albumin 3.4 g/dL (3.4-5.0); BUN/Creatinine Ratio 39.2; Calcium 8.6 mg/dL (8.5-10.1)
[2017-07-27] MEDS: LEVOTHYROXINE SODIUM 100 MCG TAB PO SCH (06:18)
[2017-07-27 06:20] LABS: Bilirubin, Total 0.4 mg/dL (0.2-1.0); Total Protein 7.6 g/dL (6.4-8.2)
[2017-07-27 06:28] VITALS: BP 108/67
[2017-07-27] MEDS: BUDESONIDE (INHALATION) 0.5 MG/2 ML NEB NEB SCH ×2 (06:28→19:31)
[2017-07-27] MEDS: ACCU-CHEK COMFORT CURVE STRIP VI SCH ×4 (06:32→23:26)
[2017-07-27] MEDS: InsuLIN REG 1unit/0.01ml Soln (100units/ml) SC SCH ×4 (06:32→23:26)
[2017-07-27] MEDS: FUROSEMIDE 40 MG/4 ML VIAL IV SCH (09:06)
[2017-07-27] MEDS: POTASSIUM CHL 20 Meq TABLET PO SCH (09:07)
[2017-07-27] MEDS: VANCOMYCIN 1,250 MG in D5W 5% 250 ML IV SCH ×2 (09:07→20:29)
[2017-07-27] MEDS: METOPROLOL SUCCINATE XL 50 MG TAB PO SCH (09:08)
[2017-07-27] MEDS: MULTIPLE VITAMIN TAB PO SCH (09:08)
[2017-07-27] MEDS: ASPirin 81 mg TAB PO SCH (09:08)
[2017-07-27] MEDS: ENALAPRIL MALEATE 2.5 MG TAB PO SCH (09:08)
[2017-07-27] MEDS: HCTZ 25 MG TAB PO SCH (09:09)
[2017-07-27] MEDS: AMITRIPTYLINE HCL 10 MG TAB PO SCH (09:09)
[2017-07-27] MEDS: NIFEdipine ER 30 MG TAB PO SCH (09:09)
[2017-07-27] MEDS: ENOXAPARIN SOD 40 MG/0.4 ML SYRINGE SC SCH (09:10)
[2017-07-27] MEDS: PANTOPRAZOLE 40 MG TAB PO SCH (09:10)
[2017-07-27] MEDS: METHADONE HCL 10 MG TAB PO SCH (11:12)
[2017-07-27] MEDS: methylPREDNISolone SOD SUCC 40 MG/ML VL IV SCH (12:25)
[2017-07-27 13:40] VITALS: BP 110/64
[2017-07-27 16:35] VITALS: BP 112/77
[2017-07-27] MEDS: HYDROcodone-ACET 5/325MG TAB PO PRN (17:24)
[2017-07-27 22:00] VITALS: BP 109/70
[2017-07-27 22:39] VITALS: BP 109/70
[2017-07-28] MEDS: IPRATROPIUM BROM 0.5 MG/2.5ML INH SOL NEB SCH ×4 (00:12→20:08)
[2017-07-28] MEDS: ALBUTEROL SULF 2.5 MG/0.5ML(0.5%) NEB SOLN NEB SCH ×4 (00:12→20:08)
[2017-07-28] MEDS: DOXYCYCLINE HYC 100MG/250ML 250 ML IV SCH ×2 (00:29→12:14)
[2017-07-28] MEDS: methylPREDNISolone SOD SUCC 40 MG/ML VL IV SCH ×3 (00:30→23:50)
[2017-07-28] MEDS: BUDESONIDE (INHALATION) 0.5 MG/2 ML NEB NEB SCH ×2 (05:39→20:08)
[2017-07-28 05:57] VITALS: BP 149/74
[2017-07-28] MEDS: LEVOTHYROXINE SODIUM 100 MCG TAB PO SCH (06:35)
[2017-07-28] MEDS: PIPERACILLIN-TAZOB 3.375GM 100 ML IV SCH ×3 (06:35→17:01)
[2017-07-28] MEDS: InsuLIN REG 1unit/0.01ml Soln (100units/ml) SC SCH ×4 (06:57→23:51)
[2017-07-28] MEDS: ACCU-CHEK COMFORT CURVE STRIP VI SCH ×4 (06:58→23:50)
[2017-07-28 07:23] LABS: Basophils # (auto) 0 uL; Eosinophils # (auto) 0 uL; Lymphocytes # (auto) 0.8 uL; Lymphocytes % (auto) 14.9 % (10.0-50.0); Mean Corpuscular Hemoglobin 29.2 pg (28.0-32.0); Mean Corpuscular Hgb Conc. 32.3 g/dL (32.0-36.0); Mean Corpuscular Volume 90.4 fL (80.0-100.0); Monocytes # (auto) 0.2 uL; Monocytes % (auto) 3.3 % (0.0-12.0); Neutrophils # (auto) 4.6 uL; Neutrophils % (auto) 81.8 % (37.0-80.0); Nucleated Red Blood Cells % 0.2 %; Platelet Count (auto) 257 10^3/uL (140-450); Red Blood Cells 4.09 10^6/uL (4.0-5.20); White Blood Cell 5.6 10^3/uL (4.4-10.8)
[2017-07-28 07:49] LABS: Albumin 3.4 g/dL (3.4-5.0); BUN/Creatinine Ratio 31.3; Bilirubin, Total 0.4 mg/dL (0.2-1.0); Calcium 8.7 mg/dL (8.5-10.1); Magnesium 2.4 mg/dL (1.6-2.6); Phosphorus 3.6 mg/dL (2.5-4.90); Potassium 4.4 mmol/L (3.5-5.1); Total Protein 7.5 g/dL (6.4-8.2)
[2017-07-28 09:05] VITALS: BP 127/68
[2017-07-28] MEDS: VANCOMYCIN 1,250 MG in D5W 5% 250 ML IV SCH ×2 (09:16→19:58)
[2017-07-28] MEDS: FUROSEMIDE 40 MG/4 ML VIAL IV SCH (09:17)
[2017-07-28] MEDS: AMITRIPTYLINE HCL 10 MG TAB PO SCH (09:18)
[2017-07-28] MEDS: NIFEdipine ER 30 MG TAB PO SCH (09:18)
[2017-07-28] MEDS: POTASSIUM CHL 20 Meq TABLET PO SCH (09:18)
[2017-07-28] MEDS: ENOXAPARIN SOD 40 MG/0.4 ML SYRINGE SC SCH (09:18)
[2017-07-28] MEDS: PANTOPRAZOLE 40 MG TAB PO SCH (09:18)
[2017-07-28] MEDS: MULTIPLE VITAMIN TAB PO SCH (09:19)
[2017-07-28] MEDS: METHADONE HCL 10 MG TAB PO SCH (09:19)
[2017-07-28] MEDS: ASPirin 81 mg TAB PO SCH (09:20)
[2017-07-28] MEDS: HCTZ 25 MG TAB PO SCH (09:20)
[2017-07-28] MEDS: METOPROLOL SUCCINATE XL 50 MG TAB PO SCH (09:20)
[2017-07-28] MEDS: ENALAPRIL MALEATE 2.5 MG TAB PO SCH (09:21)
[2017-07-28 10:38] VITALS: BP 127/68
[2017-07-28 13:09] VITALS: BP 121/81
[2017-07-28] MEDS: LORazepam 0.5 MG TAB PO PRN ×2 (16:09→23:49)
[2017-07-28 17:03] VITALS: BP 125/85
[2017-07-28 22:00] VITALS: BP 123/86
[2017-07-29] MEDS: PIPERACILLIN-TAZOB 3.375GM 100 ML IV SCH ×2 (00:51→06:00)
[2017-07-29] MEDS: IPRATROPIUM BROM 0.5 MG/2.5ML INH SOL NEB SCH ×4 (01:30→19:19)
[2017-07-29] MEDS: ALBUTEROL SULF 2.5 MG/0.5ML(0.5%) NEB SOLN NEB SCH ×4 (01:30→19:19)
[2017-07-29 05:00] VITALS: BP 130/76
[2017-07-29] MEDS: LEVOTHYROXINE SODIUM 100 MCG TAB PO SCH (06:06)
[2017-07-29] MEDS: ACCU-CHEK COMFORT CURVE STRIP VI SCH ×4 (06:07→22:28)
[2017-07-29] MEDS: InsuLIN REG 1unit/0.01ml Soln (100units/ml) SC SCH ×4 (06:32→22:25)
[2017-07-29 07:37] LABS: Basophils # (auto) 0 uL; Basophils % (auto) 0.1 % (0.0-2.0); Eosinophils # (auto) 0 uL; Hematocrit 39.3 % (36.0-46.0); Hemoglobin 12.6 g/dL (12.2-16.2); Lymphocytes # (auto) 1.1 uL; Mean Corpuscular Hgb Conc. 32.1 g/dL (32.0-36.0); Mean Corpuscular Volume 90.4 fL (80.0-100.0); Monocytes # (auto) 0.4 uL; Monocytes % (auto) 5.8 % (0.0-12.0); Neutrophils # (auto) 5.2 uL; Neutrophils % (auto) 78.1 % (37.0-80.0); Nucleated Red Blood Cells % 0.2 %; Platelet Count (auto) 278 10^3/uL (140-450); Red Blood Cells 4.35 10^6/uL (4.0-5.20); Red Cell Distribution Width 15.9 % (11.8-14.3); White Blood Cell 6.7 10^3/uL (4.4-10.8)
[2017-07-29 08:13] LABS: Anion Gap 6 (5-15); BUN/Creatinine Ratio 37.9; Blood Urea Nitrogen 25 mg/dL (7-18); Calcium 8.8 mg/dL (8.5-10.1); Carbon Dioxide 39 mmol/L (21-32); Chloride 92 mmol/L (98-107); GFR African American 121 mL/min; GFR Non-African American 100 mL/min; Glucose 122 mg/dL (74-106); Potassium 4.4 mmol/L (3.5-5.1); Sodium 137 mmol/L (136-145)
[2017-07-29] MEDS: VANCOMYCIN 1,250 MG in D5W 5% 250 ML IV SCH (08:26)
[2017-07-29 09:00] VITALS: BP 138/82
[2017-07-29] MEDS: FUROSEMIDE 40 MG/4 ML VIAL IV SCH (10:39)
[2017-07-29] MEDS: POTASSIUM CHL 20 Meq TABLET PO SCH (10:39)
[2017-07-29] MEDS: PANTOPRAZOLE 40 MG TAB PO SCH (10:39)
[2017-07-29] MEDS: AMITRIPTYLINE HCL 10 MG TAB PO SCH (10:39)
[2017-07-29] MEDS: MULTIPLE VITAMIN TAB PO SCH (10:40)
[2017-07-29] MEDS: ASPirin 81 mg TAB PO SCH (10:40)
[2017-07-29] MEDS: METOPROLOL SUCCINATE XL 50 MG TAB PO SCH (10:40)
[2017-07-29] MEDS: HCTZ 25 MG TAB PO SCH (10:41)
[2017-07-29] MEDS: ENALAPRIL MALEATE 2.5 MG TAB PO SCH (10:42)
[2017-07-29] MEDS: NIFEdipine ER 30 MG TAB PO SCH (10:42)
[2017-07-29] MEDS: METHADONE HCL 10 MG TAB PO SCH (10:43)
[2017-07-29] MEDS: ENOXAPARIN SOD 40 MG/0.4 ML SYRINGE SC SCH (10:43)
[2017-07-29] MEDS ORDERED: cefTRIAXone 1GM/50ML D5W 50 ML IV ONE (11:30)
[2017-07-29] MEDS: DOXYCYCLINE HYC 100MG/250ML 250 ML IV SCH ×2 (12:27)
[2017-07-29] MEDS: methylPREDNISolone SOD SUCC 40 MG/ML VL IV SCH ×2 (12:27→17:50)
[2017-07-29 13:00] VITALS: BP 146/94
[2017-07-29 17:16] VITALS: BP 131/86
[2017-07-29] MEDS: HYDROcodone-ACET 5/325MG TAB PO PRN (17:50)
[2017-07-29] MEDS: BUDESONIDE (INHALATION) 0.5 MG/2 ML NEB NEB SCH (19:20)
[2017-07-29 22:00] VITALS: BP 127/70
[2017-07-30] MEDS: methylPREDNISolone SOD SUCC 40 MG/ML VL IV SCH ×4 (00:26→17:23)
[2017-07-30] MEDS: LORazepam 0.5 MG TAB PO PRN ×2 (04:26→12:05)
[2017-07-30] MEDS: HYDROcodone-ACET 5/325MG TAB PO PRN ×2 (04:27→11:59)
[2017-07-30 05:00] VITALS: BP 117/65
[2017-07-30] MEDS: LEVOTHYROXINE SODIUM 100 MCG TAB PO SCH (06:58)
[2017-07-30] MEDS: InsuLIN REG 1unit/0.01ml Soln (100units/ml) SC SCH ×4 (07:00→22:30)
[2017-07-30] MEDS: ACCU-CHEK COMFORT CURVE STRIP VI SCH ×4 (07:08→22:00)
[2017-07-30 07:20] LABS: Basophils # (auto) 0 uL; Basophils % (auto) 0.1 % (0.0-2.0); Eosinophils # (auto) 0 uL; Hematocrit 40.7 % (36.0-46.0); Hemoglobin 12.8 g/dL (12.2-16.2); Lymphocytes # (auto) 1.3 uL; Lymphocytes % (auto) 18.2 % (10.0-50.0); Mean Corpuscular Hemoglobin 28.6 pg (28.0-32.0); Mean Corpuscular Hgb Conc. 31.5 g/dL (32.0-36.0); Monocytes # (auto) 0.8 uL; Neutrophils # (auto) 4.9 uL; Neutrophils % (auto) 70.7 % (37.0-80.0); Nucleated Red Blood Cells % 0.2 %; Platelet Count (auto) 282 10^3/uL (140-450); Red Blood Cells 4.47 10^6/uL (4.0-5.20); Red Cell Distribution Width 15.8 % (11.8-14.3); White Blood Cell 6.9 10^3/uL (4.4-10.8)
[2017-07-30 07:52] LABS: BUN/Creatinine Ratio 48.4; Calcium 8.6 mg/dL (8.5-10.1)
[2017-07-30] MEDS: ALBUTEROL SULF 2.5 MG/0.5ML(0.5%) NEB SOLN NEB SCH ×4 (08:17→19:39)
[2017-07-30] MEDS: IPRATROPIUM BROM 0.5 MG/2.5ML INH SOL NEB SCH ×4 (08:17→19:39)
[2017-07-30] MEDS: BUDESONIDE (INHALATION) 0.5 MG/2 ML NEB NEB SCH ×2 (08:17→21:31)
[2017-07-30] MEDS: cefTRIAXone 1GM/50ML D5W 50 ML IV SCH (08:55)
[2017-07-30 09:00] VITALS: BP 133/76
[2017-07-30] MEDS: METHADONE HCL 10 MG TAB PO SCH (09:51)
[2017-07-30] MEDS: ENOXAPARIN SOD 40 MG/0.4 ML SYRINGE SC SCH (09:52)
[2017-07-30] MEDS: POTASSIUM CHL 20 Meq TABLET PO SCH (09:52)
[2017-07-30] MEDS: AMITRIPTYLINE HCL 10 MG TAB PO SCH (09:52)
[2017-07-30] MEDS: ENALAPRIL MALEATE 2.5 MG TAB PO SCH (09:52)
[2017-07-30] MEDS: MULTIPLE VITAMIN TAB PO SCH (09:53)
[2017-07-30] MEDS: HCTZ 25 MG TAB PO SCH (09:53)
[2017-07-30] MEDS: ASPirin 81 mg TAB PO SCH (09:53)
[2017-07-30] MEDS: PANTOPRAZOLE 40 MG TAB PO SCH (09:53)
[2017-07-30] MEDS: NIFEdipine ER 30 MG TAB PO SCH (09:54)
[2017-07-30] MEDS: METOPROLOL SUCCINATE XL 50 MG TAB PO SCH (09:54)
[2017-07-30] MEDS: FUROSEMIDE 40 MG/4 ML VIAL IV SCH (09:54)
[2017-07-30 13:00] VITALS: BP 148/91
[2017-07-30 17:00] VITALS: BP 142/90
[2017-07-30 21:29] VITALS: BP 129/95
[2017-07-31] MEDS: methylPREDNISolone SOD SUCC 40 MG/ML VL IV SCH ×4 (00:21→18:15)
[2017-07-31] MEDS: HYDROcodone-ACET 5/325MG TAB PO PRN ×3 (04:19→22:38)
[2017-07-31] MEDS: LORazepam 0.5 MG TAB PO PRN ×3 (04:29→22:37)
[2017-07-31 05:15] VITALS: BP 133/85
[2017-07-31] MEDS: LEVOTHYROXINE SODIUM 100 MCG TAB PO SCH (05:58)
[2017-07-31] MEDS: InsuLIN REG 1unit/0.01ml Soln (100units/ml) SC SCH ×4 (05:59→22:37)
[2017-07-31] MEDS: ACCU-CHEK COMFORT CURVE STRIP VI SCH ×4 (05:59→22:37)
[2017-07-31] MEDS: IPRATROPIUM BROM 0.5 MG/2.5ML INH SOL NEB SCH ×4 (06:26→18:26)
[2017-07-31] MEDS: ALBUTEROL SULF 2.5 MG/0.5ML(0.5%) NEB SOLN NEB SCH ×4 (06:26→18:26)
[2017-07-31 07:07] LABS: Basophils # (auto) 0 uL; Eosinophils # (auto) 0 uL; Hematocrit 42.9 % (36.0-46.0); Hemoglobin 13.6 g/dL (12.2-16.2); Lymphocytes # (auto) 0.7 uL; Lymphocytes % (auto) 7.8 % (10.0-50.0); Mean Corpuscular Hemoglobin 28.4 pg (28.0-32.0); Mean Corpuscular Hgb Conc. 31.6 g/dL (32.0-36.0); Mean Corpuscular Volume 89.6 fL (80.0-100.0); Monocytes # (auto) 0.4 uL; Monocytes % (auto) 4.5 % (0.0-12.0); Neutrophils # (auto) 8.1 uL; Neutrophils % (auto) 87.7 % (37.0-80.0); Platelet Count (auto) 279 10^3/uL (140-450); Red Blood Cells 4.79 10^6/uL (4.0-5.20); Red Cell Distribution Width 15.6 % (11.8-14.3); White Blood Cell 9.2 10^3/uL (4.4-10.8)
[2017-07-31 07:21] LABS: Albumin 3.5 g/dL (3.4-5.0); BUN/Creatinine Ratio 42.1; Bilirubin, Total 0.6 mg/dL (0.2-1.0); Calcium 8.9 mg/dL (8.5-10.1); Potassium 4.6 mmol/L (3.5-5.1); Total Protein 7.4 g/dL (6.4-8.2)
[2017-07-31] MEDS: cefTRIAXone 1GM/50ML D5W 50 ML IV SCH (08:50)
[2017-07-31 09:00] VITALS: BP 133/85
[2017-07-31] MEDS: FUROSEMIDE 40 MG/4 ML VIAL IV SCH (09:48)
[2017-07-31] MEDS: AMITRIPTYLINE HCL 10 MG TAB PO SCH (09:49)
[2017-07-31] MEDS: ASPirin 81 mg TAB PO SCH (09:49)
[2017-07-31] MEDS: MULTIPLE VITAMIN TAB PO SCH (09:58)
[2017-07-31] MEDS: POTASSIUM CHL 20 Meq TABLET PO SCH (09:58)
[2017-07-31] MEDS: PANTOPRAZOLE 40 MG TAB PO SCH (09:58)
[2017-07-31] MEDS: NIFEdipine ER 30 MG TAB PO SCH (09:59)
[2017-07-31] MEDS: ENOXAPARIN SOD 40 MG/0.4 ML SYRINGE SC SCH (09:59)
[2017-07-31] MEDS: HCTZ 25 MG TAB PO SCH (09:59)
[2017-07-31] MEDS: METOPROLOL SUCCINATE XL 50 MG TAB PO SCH (10:00)
[2017-07-31] MEDS: ENALAPRIL MALEATE 2.5 MG TAB PO SCH (10:00)
[2017-07-31] MEDS: METHADONE HCL 10 MG TAB PO SCH (10:01)
[2017-07-31] MEDS: BUDESONIDE (INHALATION) 0.5 MG/2 ML NEB NEB SCH ×2 (10:11→18:26)
[2017-07-31 10:12] VITALS: BP 133/85
[2017-07-31] MEDS: NITROGLYCERIN 0.4 MG SL TAB SL PRN ×3 (10:42→11:17)
[2017-07-31 13:00] VITALS: BP 138/93
[2017-07-31 17:00] VITALS: BP 144/88
[2017-07-31 22:09] VITALS: BP 124/89
[2017-08-01] MEDS: methylPREDNISolone SOD SUCC 40 MG/ML VL IV SCH ×4 (00:32→18:00)
[2017-08-01] MEDS: LORazepam 0.5 MG TAB PO PRN (05:03)
[2017-08-01] MEDS: HYDROcodone-ACET 5/325MG TAB PO PRN (05:04)
[2017-08-01 05:17] VITALS: BP 142/96
[2017-08-01] MEDS: LEVOTHYROXINE SODIUM 100 MCG TAB PO SCH (06:48)
[2017-08-01] MEDS: InsuLIN REG 1unit/0.01ml Soln (100units/ml) SC SCH ×3 (06:48→16:44)
[2017-08-01] MEDS: ACCU-CHEK COMFORT CURVE STRIP VI SCH ×3 (06:48→16:43)
[2017-08-01] MEDS: ALBUTEROL SULF 2.5 MG/0.5ML(0.5%) NEB SOLN NEB SCH ×4 (07:10→18:00)
[2017-08-01] MEDS: BUDESONIDE (INHALATION) 0.5 MG/2 ML NEB NEB SCH ×2 (07:11→18:14)
[2017-08-01] MEDS: IPRATROPIUM BROM 0.5 MG/2.5ML INH SOL NEB SCH ×4 (07:11→18:00)
[2017-08-01 09:00] VITALS: BP 142/93
[2017-08-01] MEDS: cefTRIAXone 1GM/50ML D5W 50 ML IV SCH (09:25)
[2017-08-01] MEDS: METHADONE HCL 10 MG TAB PO SCH (10:17)
[2017-08-01] MEDS: AMITRIPTYLINE HCL 10 MG TAB PO SCH (10:17)
[2017-08-01] MEDS: ENOXAPARIN SOD 40 MG/0.4 ML SYRINGE SC SCH (10:17)
[2017-08-01] MEDS: MULTIPLE VITAMIN TAB PO SCH (10:18)
[2017-08-01] MEDS: ASPirin 81 mg TAB PO SCH (10:18)
[2017-08-01] MEDS: POTASSIUM CHL 20 Meq TABLET PO SCH (10:25)
[2017-08-01] MEDS: PANTOPRAZOLE 40 MG TAB PO SCH (10:26)
[2017-08-01] MEDS: ENALAPRIL MALEATE 2.5 MG TAB PO SCH (10:27)
[2017-08-01] MEDS: METOPROLOL SUCCINATE XL 50 MG TAB PO SCH (10:27)
[2017-08-01] MEDS: NIFEdipine ER 30 MG TAB PO SCH (10:28)
[2017-08-01] MEDS: HCTZ 25 MG TAB PO SCH (10:28)
[2017-08-01] MEDS: FUROSEMIDE 40 MG/4 ML VIAL IV SCH (10:28)
[2017-08-01 13:00] VITALS: BP 135/75
[2017-08-01 16:59] VITALS: BP 130/87
[2017-08-01 17:52] VITALS: BP 130/87
== END 2017-08-01 18:50 | disposition home or self-care (01) | DRG 133 ==
LOC: ER 09:17 → TELE 09:18 → TELE-E-ADS 14:33 → TELE-WESTW 16:59
PROVIDERS: ADMIT Internal Medicine; ATTEND Internal Medicine Pulmonary Disease
DX: J96.22 Acute and chronic respiratory failure with hypercapnia (principal); D68.59 Other primary thrombophilia; R53.2 Functional quadriplegia; J44.1 Chronic obstructive pulmonary disease with (acute) exacerbation; I11.0 Hypertensive heart disease with heart failure; I50.9 Heart failure, unspecified; Z68.42 Body mass index [BMI] 45.0-49.9, adult; Z99.81 Dependence on supplemental oxygen; J45.901 Unspecified asthma with (acute) exacerbation; E66.01 Morbid (severe) obesity due to excess calories; E11.9 Type 2 diabetes mellitus without complications; E03.9 Hypothyroidism, unspecified; E78.5 Hyperlipidemia, unspecified; F41.9 Anxiety disorder, unspecified; G47.33 Obstructive sleep apnea (adult) (pediatric); Z79.52 Long term (current) use of systemic steroids; Z82.49 Family history of ischemic heart disease and other diseases of the circulatory system; Z83.3 Family history of diabetes mellitus; Z98.1 Arthrodesis status; Z79.899 Other long term (current) drug therapy
CPT/HCPCS: 36415; 36600; 71010; 80048; 80053; 80061; 80202; 80307; 81001; 82550; 82805; 82962; 83036; 83735; 83880; 84100; 84484; 85025; 85379; 85652; 86141; 87081; 87086; 87400; 93005; 93306; 93970; 94010; 94640; 94644; 94761; 96361; 96372; 96374; J0696; J1815; J2543; J3490; J7060

== ENCOUNTER 2018-05-12 19:26 | Inpatient (IN) | payer MEDICAID, OTHER ==
[~2018-05-12] VITALS: Ht 152.4 cm; Wt 106.2 kg
[~2018-05-12 19:26] MED LIST changes: -LEVO750T2 PO
[2018-05-12 21:17] LABS: Basophils # (auto) 0 uL; Basophils % (auto) 0.4 % (0.0-2.0); Eosinophils # (auto) 0 uL; Eosinophils % (auto) 0.1 % (0.0-7.0); Hematocrit 39.2 % (36.0-46.0); Hemoglobin 12.7 g/dL (12.2-16.2); Lymphocytes # (auto) 1.9 uL; Lymphocytes % (auto) 21.4 % (10.0-50.0); Mean Corpuscular Hemoglobin 28.7 pg (28.0-32.0); Mean Corpuscular Hgb Conc. 32.3 g/dL (32.0-36.0); Mean Corpuscular Volume 88.6 fL (80.0-100.0); Monocytes # (auto) 0.5 uL; Monocytes % (auto) 5.5 % (0.0-12.0); Neutrophils # (auto) 6.4 uL; Neutrophils % (auto) 72.6 % (37.0-80.0); Nucleated Red Blood Cells % 0.1 %; Platelet Count (auto) 245 10^3/uL (140-450); Red Blood Cells 4.42 10^6/uL (4.0-5.20); Red Cell Distribution Width 15.2 % (11.8-14.3); White Blood Cell 8.8 10^3/uL (4.4-10.8)
[2018-05-12 21:34] LABS: Alanine Aminotransferase 45 U/L (13-56); Albumin 3.4 g/dL (3.4-5.0); Anion Gap 8 (5-15); Aspartate Aminotransferase 26 U/L (15-37); Blood Urea Nitrogen 18 mg/dL (7-18); Calcium 8.1 mg/dL (8.5-10.1); Carbon Dioxide 31 mmol/L (21-32); Chloride 101 mmol/L (98-107); GFR African American 109 mL/min; GFR Non-African American 90 mL/min; Glucose 99 mg/dL (74-106); Magnesium 2.1 mg/dL (1.6-2.6); Potassium 3.6 mmol/L (3.5-5.1); Sodium 140 mmol/L (136-145)
[2018-05-12 21:39] LABS: Alkaline Phosphatase 125 U/L (45-117); Bilirubin, Total 0.4 mg/dL (0.2-1.0)
[2018-05-12] MEDS: ALBUTEROL SULF 2.5 MG/0.5ML(0.5%) NEB SOLN NEB ONE ×2 (22:30→22:40)
[2018-05-12] MEDS: IPRATROPIUM BROM 0.5 MG/2.5ML INH SOL NEB ONE ×2 (22:30→22:40)
[2018-05-12 22:50] LABS: Partial Thromboplastin Time 29.4 sec (23.78-33.04); Prothrombin Time 10.7 sec (9.27-12.13)
[2018-05-12] MEDS ORDERED: HYDROcodone-ACET 10/325MG TAB PO ONE (23:45)
[2018-05-13] MEDS ORDERED: VANCOMYCIN 1GM/250ML 250 ML IV ONE (00:15)
[2018-05-13] MEDS ORDERED: cefTRIAXone 1GM/10ml IVPUSH 10 ML IV ONE (00:15)
[2018-05-13] MEDS ORDERED: TEMAZEPAM 15 MG CAP PO PRN (04:45)
[2018-05-13] MEDS ORDERED: HYDROcodone-ACET 5/325MG TAB PO PRN (04:45)
[2018-05-13] MEDS ORDERED: ALBUTEROL SULF 2.5 MG/0.5ML(0.5%) NEB SOLN NEB PRN (04:45)
[2018-05-13] MEDS ORDERED: ACETAMINOPHEN 325 MG TAB PO PRN (04:45)
[2018-05-13] MEDS ORDERED: DOCUSATE SOD 100 MG CAP PO PRN (04:45)
[2018-05-13] MEDS ORDERED: IPRATROPIUM BROM 0.5 MG/2.5ML INH SOL NEB PRN (04:45)
[2018-05-13] MEDS ORDERED: ONDANSETRON HCL 4 MG/2 ML VIAL IV PRN (04:45)
[2018-05-13] MEDS ORDERED: CLINDAMYCIN 600MG IV 50 ML IV SCH (06:00)
[2018-05-13 06:15] VITALS: BP 123/69
[2018-05-13 06:24] VITALS: BP 144/58
[2018-05-13 09:00] VITALS: BP 133/82
[2018-05-13] MEDS: FAMOTIDINE 20 MG TAB PO SCH ×2 (10:25→21:29)
[2018-05-13] MEDS: METOPROLOL SUCCINATE XL 50 MG TAB PO SCH (10:25)
[2018-05-13] MEDS: ENALAPRIL MALEATE 2.5 MG TAB PO SCH (10:26)
[2018-05-13] MEDS: NIFEdipine ER 30 MG TAB PO SCH (10:26)
[2018-05-13] MEDS: ENOXAPARIN SOD 40 MG/0.4 ML SYRINGE SC SCH (10:27)
[2018-05-13] MEDS: HCTZ 25 MG TAB PO SCH (10:28)
[2018-05-13] MEDS: IPRATROPIUM BROM 0.5 MG/2.5ML INH SOL NEB SCH ×5 (10:30→22:04)
[2018-05-13] MEDS: ALBUTEROL SULF 2.5 MG/0.5ML(0.5%) NEB SOLN NEB SCH ×6 (10:30→22:04)
[2018-05-13] MEDS ORDERED: LORazepam 0.5 MG TAB PO PRN (10:30)
[2018-05-13] MEDS ORDERED: IPRATROPIUM BROM 0.5 MG/2.5ML INH SOL NEB ONE (11:00)
[2018-05-13] MEDS ORDERED: OMEP-260 PO (11:12)
[2018-05-13] MEDS ORDERED: DOCU100C8 PO (11:18)
[2018-05-13] MEDS ORDERED: TIZA4CAP PO ×2 (11:18)
[2018-05-13] MEDS ORDERED: ALPR0.5T7 PO (11:18)
[2018-05-13] MEDS ORDERED: POTA10TA51 PO (11:18)
[2018-05-13] MEDS ORDERED: LIDO5DIS21 TOP (11:18)
[2018-05-13] MEDS ORDERED: CYAN100L PO (11:18)
[2018-05-13] MEDS ORDERED: LORA-622 PO (11:18)
[2018-05-13] MEDS ORDERED: ALPR1TAB7 PO (11:18)
[2018-05-13] MEDS ORDERED: PRE1T PO (11:18)
[2018-05-13] MEDS ORDERED: HYDR-4683 PO (11:18)
[2018-05-13] MEDS ORDERED: AML5T PO (11:18)
[2018-05-13] MEDS ORDERED: METHADONE HCL 10 MG TAB PO ONE (12:00)
[2018-05-13] MEDS: NICOTINE 14 MG/24HR TOPICAL PATCH TD SCH (12:11)
[2018-05-13 12:28] VITALS: BP 132/77
[2018-05-13] MEDS: methylPREDNISolone SOD SUCC 40 MG/ML VL IV SCH ×2 (14:54→21:28)
[2018-05-13 17:21] VITALS: BP 140/87
[2018-05-13] MEDS: SULFAMETHOX W/TRIMETH(800/160MG) DS TAB PO SCH (21:29)
[2018-05-13] MEDS ORDERED: cefTRIAXone 1GM/10ml IVPUSH 10 ML IV SCH (22:00)
[2018-05-13] MEDS ORDERED: AMITRIPTYLINE HCL 10 MG TAB PO SCH (22:00)
[2018-05-13 22:14] VITALS: BP 121/75
[2018-05-14] MEDS: ALBUTEROL SULF 2.5 MG/0.5ML(0.5%) NEB SOLN NEB SCH ×7 (02:43→10:29)
[2018-05-14] MEDS: IPRATROPIUM BROM 0.5 MG/2.5ML INH SOL NEB SCH ×7 (02:44→10:29)
[2018-05-14 05:01] VITALS: BP 102/68
[2018-05-14] MEDS ORDERED: HYDROcodone-ACET 5/325MG TAB PO ONE (05:15)
[2018-05-14] MEDS: methylPREDNISolone SOD SUCC 40 MG/ML VL IV SCH (06:14)
[2018-05-14 06:42] LABS: Basophils # (auto) 0 uL; Basophils % (auto) 0.1 % (0.0-2.0); Eosinophils # (auto) 0 uL; Hemoglobin 11.9 g/dL (12.2-16.2); Lymphocytes # (auto) 1.1 uL; Mean Corpuscular Hemoglobin 28.2 pg (28.0-32.0); Mean Corpuscular Hgb Conc. 32.2 g/dL (32.0-36.0); Mean Corpuscular Volume 87.6 fL (80.0-100.0); Monocytes # (auto) 0.3 uL; Monocytes % (auto) 2.6 % (0.0-12.0); Neutrophils # (auto) 8.5 uL; Neutrophils % (auto) 86.3 % (37.0-80.0); Platelet Count (auto) 239 10^3/uL (140-450); Red Blood Cells 4.23 10^6/uL (4.0-5.20); Red Cell Distribution Width 15.1 % (11.8-14.3); White Blood Cell 9.9 10^3/uL (4.4-10.8)
[2018-05-14 07:13] LABS: Alkaline Phosphatase 109 U/L (45-117); Aspartate Aminotransferase 22 U/L (15-37); Bilirubin, Total 0.3 mg/dL (0.2-1.0); Blood Urea Nitrogen 34 mg/dL (7-18); GFR African American 82 mL/min; GFR Non-African American 68 mL/min; Total Protein 7.8 g/dL (6.4-8.2)
[2018-05-14 07:15] LABS: Alanine Aminotransferase 42 U/L (13-56)
[2018-05-14 07:20] LABS: Anion Gap 8 (5-15); Calcium 8.2 mg/dL (8.5-10.1); Carbon Dioxide 29 mmol/L (21-32); Chloride 102 mmol/L (98-107); Glucose 195 mg/dL (74-106); Potassium 4.5 mmol/L (3.5-5.1); Sodium 139 mmol/L (136-145)
[2018-05-14 07:21] LABS: Albumin 3.2 g/dL (3.4-5.0); Magnesium 2.6 mg/dL (1.6-2.6)
[2018-05-14] MEDS: NICOTINE 14 MG/24HR TOPICAL PATCH TD SCH (08:38)
[2018-05-14] MEDS: FAMOTIDINE 20 MG TAB PO SCH (09:22)
[2018-05-14] MEDS: HCTZ 25 MG TAB PO SCH (09:22)
[2018-05-14] MEDS: METOPROLOL SUCCINATE XL 50 MG TAB PO SCH (09:23)
[2018-05-14] MEDS: ENALAPRIL MALEATE 2.5 MG TAB PO SCH (09:23)
[2018-05-14] MEDS: ENOXAPARIN SOD 40 MG/0.4 ML SYRINGE SC SCH (09:23)
[2018-05-14] MEDS: SULFAMETHOX W/TRIMETH(800/160MG) DS TAB PO SCH (09:24)
[2018-05-14 09:47] VITALS: BP 121/66
[2018-05-14] MEDS ORDERED: METHADONE HCL 10 MG TAB PO SCH ×2 (10:00)
[2018-05-14 10:52] VITALS: BP 121/66
[2018-05-14] MEDS: NIFEdipine ER 30 MG TAB PO SCH (12:16)
== END 2018-05-14 12:13 | disposition home or self-care (01) | DRG 133 ==
LOC: ER 19:26 → OVERFLOW 19:27 → CENTRAL 05-13 05:50
PROVIDERS: ADMIT Nurse Practitioner; ATTEND Internal Medicine
PROC: 5A09357 Assistance with Respiratory Ventilation, Less than 24 Consecutive Hours, Continuous Positive Airway Pressure (ICD-10-PCS; principal; 2018-05-13)
DX: J96.22 Acute and chronic respiratory failure with hypercapnia (principal); E44.0 Moderate protein-calorie malnutrition; J44.1 Chronic obstructive pulmonary disease with (acute) exacerbation; L03.115 Cellulitis of right lower limb; E66.01 Morbid (severe) obesity due to excess calories; F11.20 Opioid dependence, uncomplicated; E03.9 Hypothyroidism, unspecified; E78.5 Hyperlipidemia, unspecified; J98.01 Acute bronchospasm; F17.210 Nicotine dependence, cigarettes, uncomplicated; G47.30 Sleep apnea, unspecified; G89.4 Chronic pain syndrome; I10 Essential (primary) hypertension; M41.9 Scoliosis, unspecified; Z80.8 Family history of malignant neoplasm of other organs or systems; Z82.49 Family history of ischemic heart disease and other diseases of the circulatory system; Z82.62 Family history of osteoporosis; Z83.3 Family history of diabetes mellitus; Z84.89 Family history of other specified conditions; Z68.42 Body mass index [BMI] 45.0-49.9, adult; Z79.899 Other long term (current) drug therapy
CPT/HCPCS: 36415; 71045; 80053; 83735; 84484; 85025; 85379; 85610; 85730; 87040; 87081; 93005; 93971; 94640; 96365; 96368; 96375; J0696; J3490

== ENCOUNTER 2018-09-15 17:48 | Emergency (ER) | payer MEDICAID ==
[~2018-09-15] VITALS: Ht 162.6 cm; Wt 105.2 kg
[~2018-09-15 17:48] MED LIST changes: +ALPR1TAB7 PO; -AMIT PO; +AML5T PO; -ASPI-231 PO; +CYAN100L PO; +DOCU100C8 PO; +ENAL5TAB PO; -ENAL5TAB92 PO; -FLUT500M2 INH; +HYDR-4683 PO; +LIDO5DIS21 TOP; +LORA-622 PO; -METO-169 PO; -NIFE30TA76 PO; +OMEP-260 PO; -PANT40TA2 PO; +POTA10TA51 PO; +TIZA4CAP PO
[2018-09-15 18:23] VITALS: BP 139/80
== END 2018-09-15 21:40 | disposition left against medical advice (07) ==
LOC: ER 17:48
DX: M25.562 Pain in left knee (principal); M25.561 Pain in right knee; Z53.21 Procedure and treatment not carried out due to patient leaving prior to being seen by health care provider; W19.XXXA Unspecified fall, initial encounter; Y93.89 Activity, other specified; Y92.89 Other specified places as the place of occurrence of the external cause; Y99.8 Other external cause status
CPT/HCPCS: 73562; 93005

== ENCOUNTER 2018-11-25 12:28 | Emergency (ER) | payer MEDICAID ==
[~2018-11-25] VITALS: Ht 144.8 cm; Wt 93.9 kg
[2018-11-25 12:45] VITALS: BP 135/63
[2018-11-25 13:29] LABS: Basophils # (auto) 0.1 uL; Basophils % (auto) 1.1 % (0.0-2.0); Eosinophils # (auto) 0.1 uL; Eosinophils % (auto) 1.2 % (0.0-7.0); Hemoglobin 13.2 g/dL (12.2-16.2); Lymphocytes # (auto) 2.1 uL; Mean Corpuscular Hemoglobin 29.8 pg (28.0-32.0); Mean Corpuscular Hgb Conc. 33.1 g/dL (32.0-36.0); Mean Corpuscular Volume 90.2 fL (80.0-100.0); Monocytes # (auto) 0.5 uL; Monocytes % (auto) 8.3 % (0.0-12.0); Neutrophils # (auto) 3.4 uL; Neutrophils % (auto) 55.4 % (37.0-80.0); Platelet Count (auto) 213 10^3/uL (140-450); Red Blood Cells 4.43 10^6/uL (4.0-5.20); Red Cell Distribution Width 15.6 % (11.8-14.3); White Blood Cell 6.2 10^3/uL (4.4-10.8)
[2018-11-25 13:48] LABS: Alanine Aminotransferase 35 U/L (13-56); Albumin 3.4 g/dL (3.4-5.0); Anion Gap 2 (5-15); Aspartate Aminotransferase 27 U/L (15-37); BUN/Creatinine Ratio 24.2; Blood Urea Nitrogen 15 mg/dL (7-18); Calcium 8.4 mg/dL (8.5-10.1); Carbon Dioxide 36 mmol/L (21-32); Chloride 101 mmol/L (98-107); GFR African American 129 mL/min; GFR Non-African American 107 mL/min; Glucose 89 mg/dL (74-106); Magnesium 2.2 mg/dL (1.6-2.6); Potassium 3.6 mmol/L (3.5-5.1); Sodium 139 mmol/L (136-145)
[2018-11-25 13:53] LABS: Alkaline Phosphatase 108 U/L (45-117); Bilirubin, Total 0.3 mg/dL (0.2-1.0); Total Protein 7.6 g/dL (6.4-8.2)
== END 2018-11-25 20:17 | disposition left against medical advice (07) ==
LOC: ER 12:28
DX: R07.9 Chest pain, unspecified (principal); Z53.21 Procedure and treatment not carried out due to patient leaving prior to being seen by health care provider
CPT/HCPCS: 36415; 71046; 80053; 83735; 84484; 85025

== ENCOUNTER 2018-12-28 16:46 | Emergency (ER) | payer MEDICAID ==
[~2018-12-28] VITALS: Ht 152.4 cm; Wt 96.6 kg
[2018-12-28 18:13] LABS: Basophils # (auto) 0.1 uL; Basophils % (auto) 1.1 % (0.0-2.0); Eosinophils # (auto) 0.2 uL; Eosinophils % (auto) 2.1 % (0.0-7.0); Hematocrit 42.2 % (36.0-46.0); Hemoglobin 13.5 g/dL (12.2-16.2); Lymphocytes # (auto) 3.1 uL; Lymphocytes % (auto) 39.3 % (10.0-50.0); Mean Corpuscular Hemoglobin 29.3 pg (28.0-32.0); Mean Corpuscular Hgb Conc. 32.1 g/dL (32.0-36.0); Mean Corpuscular Volume 91.4 fL (80.0-100.0); Monocytes # (auto) 0.9 uL; Neutrophils # (auto) 3.5 uL; Neutrophils % (auto) 45.5 % (37.0-80.0); Nucleated Red Blood Cells % 0.1 %; Platelet Count (auto) 253 10^3/uL (140-450); Red Blood Cells 4.62 10^6/uL (4.0-5.20); Red Cell Distribution Width 15.7 % (11.8-14.3); White Blood Cell 7.8 10^3/uL (4.4-10.8)
[2018-12-28 18:30] LABS: Alanine Aminotransferase 58 U/L (13-56); Albumin 4.5 g/dL (3.4-5.0); Anion Gap 6 (5-15); Aspartate Aminotransferase 50 U/L (15-37); BUN/Creatinine Ratio 27.4; Blood Urea Nitrogen 48 mg/dL (7-18); Calcium 8.8 mg/dL (8.5-10.1); Carbon Dioxide 29 mmol/L (21-32); Chloride 102 mmol/L (98-107); GFR African American 39 mL/min; GFR Non-African American 32 mL/min; Glucose 63 mg/dL (74-106); Potassium 3.7 mmol/L (3.5-5.1); Sodium 137 mmol/L (136-145)
[2018-12-28 18:38] LABS: Alkaline Phosphatase 146 U/L (45-117); Bilirubin, Total 0.5 mg/dL (0.2-1.0); Total Protein 8.9 g/dL (6.4-8.2)
[2018-12-28 20:30] VITALS: BP 112/72
== END 2018-12-28 21:07 | disposition home or self-care (01) ==
LOC: ER 16:55
DX: J20.9 Acute bronchitis, unspecified (principal); J44.1 Chronic obstructive pulmonary disease with (acute) exacerbation; I11.0 Hypertensive heart disease with heart failure; I50.9 Heart failure, unspecified; E78.5 Hyperlipidemia, unspecified; F17.210 Nicotine dependence, cigarettes, uncomplicated; I25.10 Atherosclerotic heart disease of native coronary artery without angina pectoris; Z86.39 Personal history of other endocrine, nutritional and metabolic disease
CPT/HCPCS: 36415; 71046; 80053; 84484; 85025

== ENCOUNTER 2019-11-14 07:21 | Emergency (ER) | payer MEDICAID ==
[~2019-11-14] VITALS: Ht 152.4 cm; Wt 98.4 kg
[~2019-11-14 07:21] MED LIST changes: -HYDR-4683 PO; +HYDR-4833 PO
[2019-11-14 09:11] LABS: Basophils # (auto) 0.1 uL; Basophils % (auto) 1.9 % (0.0-2.0); Eosinophils # (auto) 0 uL; Eosinophils % (auto) 1.3 % (0.0-7.0); Hematocrit 44.3 % (36.0-46.0); Hemoglobin 14.8 g/dL (12.2-16.2); Lymphocytes % (auto) 27.8 % (10.0-50.0); Mean Corpuscular Hemoglobin 31.7 pg (28.0-32.0); Mean Corpuscular Hgb Conc. 33.5 g/dL (32.0-36.0); Mean Corpuscular Volume 94.6 fL (80.0-100.0); Monocytes # (auto) 0.4 uL; Monocytes % (auto) 10.2 % (0.0-12.0); Neutrophils # (auto) 2.2 uL; Neutrophils % (auto) 58.8 % (37.0-80.0); Nucleated Red Blood Cells % 0.1 %; Platelet Count (auto) 173 10^3/uL (140-450); Red Blood Cells 4.68 10^6/uL (4.0-5.20); Red Cell Distribution Width 15.5 % (11.8-14.3); White Blood Cell 3.8 10^3/uL (4.4-10.8)
[2019-11-14 09:30] LABS: Albumin 3.6 g/dL (3.4-5.0); Anion Gap 6 (5-15); Blood Urea Nitrogen 14 mg/dL (7-18); Carbon Dioxide 31 mmol/L (21-32); Chloride 102 mmol/L (98-107); Glucose 93 mg/dL (74-106); Potassium 3.6 mmol/L (3.5-5.1); Sodium 139 mmol/L (136-145)
[2019-11-14 09:33] LABS: INR 1.22 (0.9-1.15); Partial Thromboplastin Time 29.5 sec (23.64-32.05)
[2019-11-14 09:36] LABS: Alanine Aminotransferase 171 U/L (13-56); Alkaline Phosphatase 176 U/L (45-117); Aspartate Aminotransferase 182 U/L (15-37); BUN/Creatinine Ratio 21.9; Bilirubin, Total 1.5 mg/dL (0.2-1.0); GFR African American 124 mL/min; GFR Non-African American 103 mL/min; Total Protein 7.4 g/dL (6.4-8.2)
[2019-11-14 11:12] LABS: Urine Bacteria NONE SEEN /hpf (None Seen); Urine Blood Negative /uL (Negative); Urine Mucus MODERATE (None Seen); Urine Specific Gravity 1.034 (1.001-1.035); Urine WBC 16 /hpf (0 - 5)
[2019-11-14] MEDS ORDERED: FUROSEMIDE 40 MG/4 ML VIAL IV ONE (11:30)
[2019-11-14] MEDS ORDERED: cefTRIAXone 1GM/50ML D5W 50 ML IV ONE (11:30)
[2019-11-14 11:39] VITALS: BP 126/79
== END 2019-11-14 12:36 | disposition home or self-care (01) ==
LOC: ER 07:21
DX: J44.1 Chronic obstructive pulmonary disease with (acute) exacerbation (principal); N39.0 Urinary tract infection, site not specified; R74.8 Abnormal levels of other serum enzymes; I11.0 Hypertensive heart disease with heart failure; I50.9 Heart failure, unspecified; E78.5 Hyperlipidemia, unspecified; I25.10 Atherosclerotic heart disease of native coronary artery without angina pectoris; Z87.891 Personal history of nicotine dependence
CPT/HCPCS: 36415; 71046; 80053; 81001; 84484; 85025; 85610; 85730; 93005; 96365; 96375; 99285; J0696; J1940

== ENCOUNTER 2020-08-22 23:17 | Emergency (ER) | payer MEDICAID ==
[~2020-08-22] VITALS: Ht 154.9 cm; Wt 81.6 kg
[~2020-08-22 23:17] MED LIST changes: -ENAL5TAB PO; +ENAL5TAB10 PO; +MULT-1018 PO; -MULTTAB61 PO
[2020-08-23] MEDS ORDERED: cefTRIAXone SOD 1,000 MG VL IM ONE
[2020-08-23] MEDS ORDERED: LIDOCAINE 1% HCL (LOCAL ANESTH.) INJ 20ML MDV ONE (00:07)
[2020-08-23 01:22] LABS: Albumin 3.3 g/dL (3.4-5.0); Calcium 7.6 mg/dL (8.5-10.1); Hemoglobin 12.1 g/dL (12.2-16.2); Mean Corpuscular Hemoglobin 26.5 pg (28.0-32.0); Potassium 4.2 mmol/L (3.5-5.1); Red Blood Cells 4.57 10^6/uL (4.0-5.20)
[2020-08-23 01:23] LABS: INR 1.2 (0.9-1.15); Partial Thromboplastin Time 29.4 sec (23.0-31.2)
[2020-08-23 01:24] LABS: BUN/Creatinine Ratio 23.8; Hematocrit 38.3 % (36.0-46.0); Mean Corpuscular Hgb Conc. 31.6 g/dL (32.0-36.0); Platelet Count (auto) 209 10^3/uL (140-450); Red Cell Distribution Width 16.7 % (11.8-14.3)
[2020-08-23 01:27] LABS: Bilirubin, Total 0.3 mg/dL (0.2-1.0); Total Protein 8.2 g/dL (6.4-8.2)
[2020-08-23] MEDS ORDERED: ACETAMINOPHEN/CODEINE#3 (300/30mg) TAB PO ONE (01:30)
[2020-08-23 01:42] LABS: Basophils % (manual) 0 (0.0-2.0); Blast Cells 0; Eosinophils % (manual) 0 (0-7); Metamyelocytes % 0; Myelocytes % 0; Promyelocytes % 0; Reactive Lymphocytes 0
[2020-08-23 04:00] VITALS: BP 144/80
[2020-08-23 04:41] LABS: Band Neutrophils % (manual) 1; Lymphocytes % (manual) 48 (10.0-50.0); Monocytes % (manual) 10 (0-12)
== END 2020-08-23 05:21 | disposition home or self-care (01) ==
LOC: ER 23:19
DX: S01.81XA Laceration without foreign body of other part of head, initial encounter (principal); S09.90XA Unspecified injury of head, initial encounter; I11.0 Hypertensive heart disease with heart failure; I50.9 Heart failure, unspecified; E78.5 Hyperlipidemia, unspecified; J44.9 Chronic obstructive pulmonary disease, unspecified; Z79.899 Other long term (current) drug therapy; Z87.891 Personal history of nicotine dependence
CPT/HCPCS: 12011; 36415; 70450; 70486; 72125; 80053; 85007; 85027; 85610; 85730; 96372; 99285; J0696; J2001

== ENCOUNTER 2020-10-04 06:55 | Inpatient (IN) | payer MEDICAID ==
[~2020-10-04] VITALS: Ht 152.4 cm; Wt 90.7 kg
[~2020-10-04 06:55] MED LIST changes: -ALBU0.084; +ALBU0.084 NEB
[2020-10-04 08:09] LABS: Basophils # (auto) 0 10 ^3/uL (0-0.2); Basophils % (auto) 0.3 % (0.0-2.0); Eosinophils # (auto) 0 10 ^3/uL (0-0.8); Hematocrit 29.3 % (36.0-46.0); Hemoglobin 9.1 g/dL (12.2-16.2); Lymphocytes # (auto) 0.6 10 ^3/uL (0.4-5.4); Lymphocytes % (auto) 10.9 % (10.0-50.0); Mean Corpuscular Hemoglobin 25.7 pg (28.0-32.0); Mean Corpuscular Volume 83.1 fL (80.0-100.0); Monocytes # (auto) 0.3 10 ^3/uL (0-1.3); Monocytes % (auto) 6.7 % (0.0-12.0); Neutrophils # (auto) 4.2 10 ^3/uL (1.6-8.6); Neutrophils % (auto) 82.1 % (37.0-80.0); Nucleated Red Blood Cells % 0.2 %; Platelet Count (auto) 135 10^3/uL (140-450); Red Blood Cells 3.53 10^6/uL (4.0-5.20); Red Cell Distribution Width 18.8 % (11.8-14.3); White Blood Cell 5.1 10^3/uL (4.4-10.8)
[2020-10-04 08:22] LABS: Chloride 101 mmol/L (98-107); Potassium 4.3 mmol/L (3.5-5.1); Sodium 138 mmol/L (136-145)
[2020-10-04 08:27] LABS: INR 1.13 (0.9-1.15); Partial Thromboplastin Time 27.4 sec (23.0-31.2)
[2020-10-04 08:37] LABS: Alanine Aminotransferase 104 U/L (13-56); Albumin 3.1 g/dL (3.4-5.0); Alkaline Phosphatase 188 U/L (45-117); Anion Gap 1 (5-15); Aspartate Aminotransferase 105 U/L (15-37); BUN/Creatinine Ratio 38.9; Bilirubin, Total 0.4 mg/dL (0.2-1.0); Blood Urea Nitrogen 21 mg/dL (7-18); Calcium 7.8 mg/dL (8.5-10.1); Carbon Dioxide 36 mmol/L (21-32); GFR African American 151 mL/min; GFR Non-African American 125 mL/min; Glucose 103 mg/dL (74-106); Lactic Acid w/Reflex 2.8 mmol/L (0.4-2.0); Total Protein 8.5 g/dL (6.4-8.2)
[2020-10-04] MEDS ORDERED: SODIUM CHLORIDE 0.9% 1,000 ML IV ONE ×2 (09:00→11:15)
[2020-10-04] MEDS ORDERED: DOXYCYCLINE 100MG/250ML 250 ML IV ONE (09:00)
[2020-10-04] MEDS ORDERED: DexAMETHasone SOD PHOS 10MG/1ML VIAL INJ IV ONE (09:00)
[2020-10-04] MEDS ORDERED: NITROGLYCERIN 0.4 MG SL TAB SL PRN (11:15)
[2020-10-04] MEDS ORDERED: HYDROcodone-ACET 5/325MG TAB PO PRN (11:15)
[2020-10-04] MEDS ORDERED: MORPHINE SULF INJ 2 MG/ML SYRINGE 1ML IV PRN (11:15)
[2020-10-04] MEDS: chlordiazePOXIDE HCL 25 MG CAP PO SCH ×2 (12:00→18:27)
[2020-10-04 12:05] LABS: Barbiturate Scree,Urine NEGATIVE (NEGATIVE); Cannabinoid Screen, Urine NEGATIVE (NEGATIVE)
[2020-10-04 12:14] LABS: Amphetamine Screen, Urine NEGATIVE (NEGATIVE); Benzodiazephine Screen, Urine POSITIVE (NEGATIVE); Cocaine Screen, Urine NEGATIVE (NEGATIVE); Opiate Scree,Urine NEGATIVE (NEGATIVE); Phencyclidine Screen, Urine NEGATIVE (NEGATIVE)
[2020-10-04 12:22] LABS: Urine Bacteria NONE SEEN /hpf (None Seen); Urine Blood Negative /uL (Negative); Urine Mucus FEW (None Seen); Urine Specific Gravity 1.023 (1.001-1.035); Urine WBC 3 /hpf (0 - 5)
[2020-10-04] MEDS ORDERED: LEVO200T7 PO (15:28)
[2020-10-04] MEDS ORDERED: HYDR-531 PO (15:29)
[2020-10-04] MEDS ORDERED: POTA10TA32 PO (15:30)
[2020-10-04] MEDS ORDERED: CHOL20007 PO (15:30)
[2020-10-04] MEDS ORDERED: AMLO10TA13 PO (15:31)
[2020-10-04] MEDS ORDERED: TIZA2CAP12 PO (15:32)
[2020-10-04] MEDS ORDERED: ACLI1AER2 IN (15:34)
[2020-10-04] MEDS ORDERED: PRED-158 PO (15:36)
[2020-10-04] MEDS ORDERED: METHADONE HCL 10 MG TAB PO SCH (16:26)
[2020-10-04] MEDS ORDERED: METHADONE HCL 10 MG TAB ONE (16:29)
[2020-10-04] MEDS ORDERED: ALBUTEROL SULF HFA 90MCG INH 200DOSE IN SCH (22:00)
[2020-10-04] MEDS: DOXYCYCLINE 100 MG TAB/CAP PO SCH (22:00)
[2020-10-05] MEDS: chlordiazePOXIDE HCL 25 MG CAP PO SCH
[2020-10-05] MEDS: FOLIC ACID 1 MG in D5W 5% 50 ML INJ SCH ×2 (03:30→10:10)
[2020-10-05] MEDS: chlordiazePOXIDE HCL 25 MG CAP PO PRN ×2 (05:30→12:16)
[2020-10-05] MEDS: DOXYCYCLINE 100 MG TAB/CAP PO SCH (08:27)
[2020-10-05] MEDS ORDERED: LEVOTHYROXINE SODIUM 25 MCG TAB PO SCH (10:00)
[2020-10-05] MEDS ORDERED: METHADONE HCL 10 MG TAB PO SCH (10:00)
[2020-10-05] MEDS ORDERED: ENALAPRIL MALEATE 2.5 MG TAB PO SCH (10:00)
[2020-10-05] MEDS ORDERED: THIAMINE 100mg/ml INJ (200mg/2ml VIAL) IV SCH (10:00)
[2020-10-05 11:00] VITALS: BP 147/91
== END 2020-10-05 13:00 | disposition left against medical advice (07) | DRG 133 ==
LOC: ER 06:55 → TELE 06:56
PROVIDERS: ADMIT Internal Medicine; ATTEND Internal Medicine
PROC: 05HA33Z Insertion of Infusion Device into Left Brachial Vein, Percutaneous Approach (ICD-10-PCS; principal; 2020-10-04)
PROC: B54NZZA Ultrasonography of Left Upper Extremity Veins, Guidance (ICD-10-PCS; 2020-10-04)
DX: J96.21 Acute and chronic respiratory failure with hypoxia (principal); J18.9 Pneumonia, unspecified organism; J44.0 Chronic obstructive pulmonary disease with (acute) lower respiratory infection; G89.4 Chronic pain syndrome; K21.9 Gastro-esophageal reflux disease without esophagitis; E03.9 Hypothyroidism, unspecified; E66.9 Obesity, unspecified; E78.5 Hyperlipidemia, unspecified; F12.90 Cannabis use, unspecified, uncomplicated; Z20.822 Contact with and (suspected) exposure to COVID-19; F11.20 Opioid dependence, uncomplicated; F17.210 Nicotine dependence, cigarettes, uncomplicated; I11.0 Hypertensive heart disease with heart failure; I50.9 Heart failure, unspecified; Z68.39 Body mass index [BMI] 39.0-39.9, adult; Z80.8 Family history of malignant neoplasm of other organs or systems; Z82.49 Family history of ischemic heart disease and other diseases of the circulatory system; Z83.3 Family history of diabetes mellitus; Z91.19 Patient's noncompliance with other medical treatment and regimen; Z82.62 Family history of osteoporosis; Z88.5 Allergy status to narcotic agent; Z53.29 Procedure and treatment not carried out because of patient's decision for other reasons
CPT/HCPCS: 36415; 71045; 80053; 80307; 80320; 81001; 83605; 83880; 84484; 85025; 85379; 85610; 85730; 87040; 87086; 87426; 93005; 93970; 96361; 96365; 96375; G0378; J1100; J3490; J7060

== ENCOUNTER 2021-02-10 10:08 | Inpatient (IN) | payer MEDICAID ==
[~2021-02-10] VITALS: Ht 172.7 cm; Wt 110.6 kg
[~2021-02-10 10:08] MED LIST changes: +ACLI1AER2 IN; -ALPR1TAB7 PO; -AML5T PO; +AMLO-496 PO; +CHOL20007 PO; -CYAN100L PO; +DOCU100C10 PO; -DOCU100C8 PO; -HOME O2; -HYDR-4833 PO; +HYDR-531 PO; +LEVO200T7 PO; -LEVO25TA9 PO; -LIDO5DIS21 TOP; -LORA-622 PO; -MULT-1018 PO; +POTA10TA32 PO; -POTA10TA51 PO; +PRED10TA PO; +TIZA2CAP12 PO; -TIZA4CAP PO
[2021-02-10 10:52] LABS: Basophils # (auto) 0 10 ^3/uL (0-0.2); Eosinophils # (auto) 0 10 ^3/uL (0-0.8); Hemoglobin 10.4 g/dL (12.2-16.2); Lymphocytes # (auto) 0.5 10 ^3/uL (0.4-5.4); Monocytes # (auto) 0.5 10 ^3/uL (0-1.3)
[2021-02-10 10:53] LABS: Basophils % (auto) 0.1 % (0.0-2.0); Hematocrit 35.2 % (36.0-46.0); Lymphocytes % (auto) 5.6 % (10.0-50.0); Mean Corpuscular Hemoglobin 23.5 pg (28.0-32.0); Mean Corpuscular Hgb Conc. 29.6 g/dL (32.0-36.0); Mean Corpuscular Volume 79.3 fL (80.0-100.0); Monocytes % (auto) 5.7 % (0.0-12.0); Neutrophils # (auto) 7.8 10 ^3/uL (1.6-8.6); Neutrophils % (auto) 88.6 % (37.0-80.0); Platelet Count (auto) 150 10^3/uL (140-450); Red Blood Cells 4.43 10^6/uL (4.0-5.20); Red Cell Distribution Width 17.9 % (11.8-14.3); White Blood Cell 8.8 10^3/uL (4.4-10.8)
[2021-02-10 11:03] LABS: Albumin 3.3 g/dL (3.4-5.0); Magnesium 2.2 mg/dL (1.6-2.6); Potassium 4.7 mmol/L (3.5-5.1)
[2021-02-10 11:04] LABS: Salicylate 1.8 mg/dL (2.8-20.0)
[2021-02-10 11:07] LABS: BUN/Creatinine Ratio 30.4; Bilirubin, Total 0.2 mg/dL (0.2-1.0); Total Protein 9.3 g/dL (6.4-8.2)
[2021-02-10 11:10] LABS: Acetaminophen < 2.0 ug/mL (10-30)
[2021-02-10] MEDS ORDERED: SODIUM CHLORIDE 0.9% 1,000 ML IV ONE (11:15)
[2021-02-10] MEDS ORDERED: SODIUM CHLORIDE 0.9% 500 ML IVB ONE (11:15)
[2021-02-10] MEDS ORDERED: methylPREDNISolone SOD SUCC 125 MG/2 ML VL ONE (11:58)
[2021-02-10] MEDS ORDERED: LORazepam 2MG/ML-1ML VIAL ONE (11:58)
[2021-02-10] MEDS ORDERED: IPRATROPIUM BROM 0.5 MG/2.5ML INH SOL ONE (11:59)
[2021-02-10] MEDS ORDERED: ALBUTEROL SULF 2.5 MG/0.5ML(0.5%) NEB SOLN ONE (11:59)
[2021-02-10 12:11] LABS: INR 1.08 (0.9-1.15); Partial Thromboplastin Time 30.5 sec (23.0-31.2)
[2021-02-10] MEDS ORDERED: IPRATROPIUM BROM 0.5 MG/2.5ML INH SOL NEB ONE (12:15)
[2021-02-10] MEDS ORDERED: ALBUTEROL SULF 2.5 MG/0.5ML(0.5%) NEB SOLN NEB ONE (12:15)
[2021-02-10] MEDS ORDERED: LORazepam 2MG/ML-1ML VIAL IV ONE ×2 (12:45)
[2021-02-10] MEDS ORDERED: methylPREDNISolone SOD SUCC 125 MG/2 ML VL IV ONE (12:45)
[2021-02-10 13:48] LABS: Urine Bacteria NONE SEEN /hpf (None Seen); Urine Blood 2+ /uL (Negative); Urine Hyaline Cast MOD /lpf (0 - 2); Urine Specific Gravity 1.017 (1.001-1.035); Urine WBC 1 /hpf (0 - 5)
[2021-02-10 14:11] LABS: Alcohol, Urine < 3.0 mg/dL (0-10); Amphetamine Screen, Urine NEGATIVE (NEGATIVE); Barbiturate Scree,Urine NEGATIVE (NEGATIVE); Benzodiazephine Screen, Urine POSITIVE (NEGATIVE); Cannabinoid Screen, Urine NEGATIVE (NEGATIVE); Cocaine Screen, Urine NEGATIVE (NEGATIVE); Opiate Scree,Urine NEGATIVE (NEGATIVE); Phencyclidine Screen, Urine NEGATIVE (NEGATIVE)
[2021-02-10 14:58] VITALS: BP 134/86
[2021-02-10] MEDS ORDERED: MORPHINE SULF INJ 2 MG/ML SYRINGE 1ML IV PRN (15:00)
[2021-02-10] MEDS ORDERED: ONDANSETRON HCL 4 MG/2 ML VIAL IV PRN (15:00)
[2021-02-10] MEDS ORDERED: NITROGLYCERIN 0.4 MG SL TAB SL PRN (15:00)
[2021-02-10] MEDS: SODIUM BICARBONATE 50ML VIAL 50 ML in D5W/SOD CHL 0.45% 1,000 ML IV SCH ×2 (17:30→23:24)
[2021-02-10] MEDS: ALBUTEROL SULF 2.5 MG/0.5ML(0.5%) NEB SOLN NEB SCH ×2 (17:40→23:52)
[2021-02-10] MEDS: IPRATROPIUM BROM 0.5 MG/2.5ML INH SOL NEB SCH ×2 (17:40→23:52)
[2021-02-10 17:48] VITALS: BP 169/93
[2021-02-10] MEDS: LORazepam 2MG/ML-1ML VIAL IV PRN (19:44)
[2021-02-10] MEDS: FAMOTIDINE (10MG/ML) 2ML VL IV SCH (19:47)
[2021-02-10] MEDS: CLINDAMYCIN 600MG IV 50 ML IV SCH (19:47)
[2021-02-10] MEDS: HALOPERIDOL LACTATE 5 MG/ML INJ VIAL IM PRN ×2 (19:54→22:44)
[2021-02-10 20:01] VITALS: BP 168/84
[2021-02-10] MEDS: HYDROcodone-ACET 5/325MG TAB PO PRN (20:03)
[2021-02-10 22:54] VITALS: BP 168/84
[2021-02-10 23:01] VITALS: BP 143/77
[2021-02-10 23:58] VITALS: BP 142/77
[2021-02-11] VITALS (8 sets, daily range): BP systolic 141–170; BP diastolic 76–101
[2021-02-11] MEDS: LORazepam 2MG/ML-1ML VIAL IV PRN ×3 (01:37→15:15)
[2021-02-11] MEDS: CLINDAMYCIN 600MG IV 50 ML IV SCH ×2 (04:09→12:40)
[2021-02-11] MEDS: IPRATROPIUM BROM 0.5 MG/2.5ML INH SOL NEB SCH ×3 (06:12→18:05)
[2021-02-11] MEDS: ALBUTEROL SULF 2.5 MG/0.5ML(0.5%) NEB SOLN NEB SCH ×3 (06:12→18:05)
[2021-02-11] MEDS: SODIUM BICARBONATE 50ML VIAL 50 ML in D5W/SOD CHL 0.45% 1,000 ML IV SCH (07:48)
[2021-02-11] MEDS: FAMOTIDINE (10MG/ML) 2ML VL IV SCH (08:33)
[2021-02-11 08:55] LABS: Basophils # (auto) 0 10 ^3/uL (0-0.2); Eosinophils # (auto) 0 10 ^3/uL (0-0.8); Hemoglobin 8.9 g/dL (12.2-16.2); Lymphocytes # (auto) 0.8 10 ^3/uL (0.4-5.4); Red Blood Cells 3.63 10^6/uL (4.0-5.20)
[2021-02-11 08:57] LABS: Hematocrit 27.8 % (36.0-46.0); Lymphocytes % (auto) 10.7 % (10.0-50.0); Mean Corpuscular Hemoglobin 24.7 pg (28.0-32.0); Mean Corpuscular Hgb Conc. 32.2 g/dL (32.0-36.0); Mean Corpuscular Volume 76.5 fL (80.0-100.0); Monocytes # (auto) 0.5 10 ^3/uL (0-1.3); Monocytes % (auto) 6.2 % (0.0-12.0); Neutrophils # (auto) 6.1 10 ^3/uL (1.6-8.6); Neutrophils % (auto) 83.1 % (37.0-80.0); Nucleated Red Blood Cells % 0.1 %; Platelet Count (auto) 132 10^3/uL (140-450); Red Cell Distribution Width 17.9 % (11.8-14.3); White Blood Cell 7.4 10^3/uL (4.4-10.8)
[2021-02-11 09:12] LABS: Albumin 3.1 g/dL (3.4-5.0); Calcium 7.7 mg/dL (8.5-10.1); INR 1.16 (0.9-1.15); Partial Thromboplastin Time 29.8 sec (23.0-31.2); Potassium 3.7 mmol/L (3.5-5.1)
[2021-02-11 09:14] LABS: BUN/Creatinine Ratio 27.7
[2021-02-11 09:17] LABS: Bilirubin, Total 0.4 mg/dL (0.2-1.0); Total Protein 8.1 g/dL (6.4-8.2)
[2021-02-11] MEDS: FUROSEMIDE 40 MG/4 ML VIAL IV SCH (10:52)
[2021-02-11] MEDS: POTASSIUM CHL 20 Meq TABLET PO SCH (10:52)
[2021-02-11] MEDS: HYDROcodone-ACET 5/325MG TAB PO PRN (14:25)
[2021-02-12] VITALS (10 sets, daily range): BP systolic 135–166; BP diastolic 68–141
[2021-02-12] MEDS: IPRATROPIUM BROM 0.5 MG/2.5ML INH SOL NEB SCH ×4 (00:18→18:03)
[2021-02-12] MEDS: ALBUTEROL SULF 2.5 MG/0.5ML(0.5%) NEB SOLN NEB PRN ×4 (00:18→18:03)
[2021-02-12] MEDS: CLINDAMYCIN 600MG IV 50 ML IV SCH ×4 (01:22→21:06)
[2021-02-12] MEDS: FAMOTIDINE (10MG/ML) 2ML VL IV SCH ×3 (01:23→21:07)
[2021-02-12] MEDS: FUROSEMIDE 40 MG/4 ML VIAL IV SCH ×3 (01:23→21:07)
[2021-02-12] MEDS: LORazepam 2MG/ML-1ML VIAL IV PRN ×2 (09:00→21:08)
[2021-02-12] MEDS ORDERED: METHADONE HCL 10 MG TAB PO ONE (09:45)
[2021-02-12] MEDS: POTASSIUM CHL 20 Meq TABLET PO SCH (10:22)
[2021-02-12] MEDS: HYDROcodone-ACET 10/325MG TAB PO PRN ×2 (10:23→17:42)
[2021-02-12] MEDS ORDERED: methylPREDNISolone SOD SUCC 40 MG/ML VL ONE (13:16)
[2021-02-12] MEDS ORDERED: methylPREDNISolone SOD SUCC 40 MG/ML VL IV SCH (14:00)
[2021-02-12] MEDS ORDERED: DOCUSATE SOD 100 MG CAP PO SCH (16:15)
[2021-02-12] MEDS: ALPRAZolam 0.5 MG TAB PO PRN (17:01)
[2021-02-12] MEDS: methylPREDNISolone SOD SUCC 40 MG/ML VL IV SCH (17:26)
[2021-02-12] MEDS: BUDESONIDE (INHALATION) 0.5 MG/2 ML NEB NEB SCH (18:03)
[2021-02-13] VITALS (9 sets, daily range): BP systolic 114–164; BP diastolic 60–98
[2021-02-13] MEDS: methylPREDNISolone SOD SUCC 40 MG/ML VL IV SCH ×3 (00:10→12:17)
[2021-02-13] MEDS: HYDROcodone-ACET 10/325MG TAB PO PRN (00:11)
[2021-02-13] MEDS: ALPRAZolam 0.5 MG TAB PO PRN ×2 (00:11→10:34)
[2021-02-13] MEDS: IPRATROPIUM BROM 0.5 MG/2.5ML INH SOL NEB SCH ×3 (00:34→13:25)
[2021-02-13] MEDS: ALBUTEROL SULF 2.5 MG/0.5ML(0.5%) NEB SOLN NEB PRN ×2 (00:34→07:35)
[2021-02-13] MEDS: CLINDAMYCIN 600MG IV 50 ML IV SCH ×2 (06:44→14:00)
[2021-02-13] MEDS ORDERED: LEVOTHYROXINE SODIUM 100 MCG TAB PO SCH (07:00)
[2021-02-13] MEDS: BUDESONIDE (INHALATION) 0.5 MG/2 ML NEB NEB SCH (07:35)
[2021-02-13] MEDS: LORazepam 2MG/ML-1ML VIAL IV PRN (08:53)
[2021-02-13] MEDS: FUROSEMIDE 40 MG/4 ML VIAL IV SCH (09:42)
[2021-02-13] MEDS: FAMOTIDINE (10MG/ML) 2ML VL IV SCH (09:42)
[2021-02-13] MEDS: POTASSIUM CHL 20 Meq TABLET PO SCH (09:42)
[2021-02-13] MEDS ORDERED: METHADONE HCL PO SCH (10:00)
[2021-02-13] MEDS ORDERED: METHADONE HCL 10 MG TAB PO ONE (10:00)
[2021-02-13] MEDS ORDERED: SERTRALINE HCL 50 MG TAB PO SCH (10:00)
[2021-02-13] MEDS ORDERED: CHOLECALCIFEROL (VITD3) 2,000 UNIT CAP/TAB PO SCH (10:00)
[2021-02-13] MEDS ORDERED: amLODIPine BESYLATE 5 MG TAB PO SCH (10:00)
[2021-02-13] MEDS ORDERED: PRED20TA2 PO (12:48)
[2021-02-13] MEDS ORDERED: AZIT500T66 PO (12:48)
[2021-02-13] MEDS ORDERED: FURO40TA4 PO (12:48)
[2021-02-13] MEDS ORDERED: POTA10TA51 PO (12:48)
[2021-02-14] MEDS ORDERED: METHADONE PO SCH (10:00)
[2021-02-14] MEDS ORDERED: METHADONE HCL 10 MG TAB PO SCH (10:00)
== END 2021-02-13 15:44 | disposition home or self-care (01) | DRG 812 ==
LOC: ER 10:08 → EDBD 10:08 → OVERFLOW 14:55 → DOU IN ICU 17:25
PROVIDERS: ADMIT Hospitalist; ATTEND Hospitalist
PROC: 5A09357 Assistance with Respiratory Ventilation, Less than 24 Consecutive Hours, Continuous Positive Airway Pressure (ICD-10-PCS; principal; 2021-02-10)
PROC: 5A09357 Assistance with Respiratory Ventilation, Less than 24 Consecutive Hours, Continuous Positive Airway Pressure (ICD-10-PCS; 2021-02-10)
PROC: 5A09357 Assistance with Respiratory Ventilation, Less than 24 Consecutive Hours, Continuous Positive Airway Pressure (ICD-10-PCS; 2021-02-11)
PROC: 5A09357 Assistance with Respiratory Ventilation, Less than 24 Consecutive Hours, Continuous Positive Airway Pressure (ICD-10-PCS; 2021-02-11)
PROC: 5A09357 Assistance with Respiratory Ventilation, Less than 24 Consecutive Hours, Continuous Positive Airway Pressure (ICD-10-PCS; 2021-02-12)
DX: T40.601A Poisoning by unspecified narcotics, accidental (unintentional), initial encounter (principal); J96.21 Acute and chronic respiratory failure with hypoxia; G92 Toxic encephalopathy; J44.1 Chronic obstructive pulmonary disease with (acute) exacerbation; E44.1 Mild protein-calorie malnutrition; E66.01 Morbid (severe) obesity due to excess calories; J45.901 Unspecified asthma with (acute) exacerbation; Z20.822 Contact with and (suspected) exposure to COVID-19; I50.9 Heart failure, unspecified; R74.8 Abnormal levels of other serum enzymes; E03.9 Hypothyroidism, unspecified; I11.0 Hypertensive heart disease with heart failure; E78.5 Hyperlipidemia, unspecified; F17.210 Nicotine dependence, cigarettes, uncomplicated; G47.33 Obstructive sleep apnea (adult) (pediatric); F10.20 Alcohol dependence, uncomplicated; G89.4 Chronic pain syndrome; Z88.6 Allergy status to analgesic agent; Z82.49 Family history of ischemic heart disease and other diseases of the circulatory system; Z83.3 Family history of diabetes mellitus; Z80.8 Family history of malignant neoplasm of other organs or systems; Z82.62 Family history of osteoporosis; Z83.42 Family history of familial hypercholesterolemia; Z79.899 Other long term (current) drug therapy; Z68.37 Body mass index [BMI] 37.0-37.9, adult; F41.9 Anxiety disorder, unspecified; Z79.891 Long term (current) use of opiate analgesic; Z98.1 Arthrodesis status
CPT/HCPCS: 36415; 36600; 51702; 71045; 80053; 80307; 80320; 80329; 81001; 82805; 83605; 83735; 84443; 85025; 85610; 85730; 87081; 87426; 92610; 93005; 94640; 94660; 96361; 96374; 96375; 96376; 99291; G0378; J3490

== ENCOUNTER 2021-03-13 11:20 | Emergency (ER) | payer MEDICAID ==
[~2021-03-13] VITALS: Ht 152.4 cm; Wt 90.7 kg
[~2021-03-13 11:20] MED LIST changes: +AZIT500T66 PO; +FURO40TA4 PO; -HYDR25TA4 PO; -POTA10TA32 PO; +POTA10TA51 PO; -PRED10TA PO; +PRED20TA2 PO
[2021-03-13 14:11] LABS: Basophils # (auto) 0 10 ^3/uL (0-0.2); Basophils % (auto) 1.1 % (0.0-2.0); Eosinophils # (auto) 0 10 ^3/uL (0-0.8); Hematocrit 32.8 % (36.0-46.0); Monocytes # (auto) 0.3 10 ^3/uL (0-1.3); Neutrophils # (auto) 2.2 10 ^3/uL (1.6-8.6)
[2021-03-13 14:13] LABS: Eosinophils % (auto) 0.9 % (0.0-7.0); Hemoglobin 10.5 g/dL (12.2-16.2); Lymphocytes # (auto) 1.1 10 ^3/uL (0.4-5.4); Lymphocytes % (auto) 29.1 % (10.0-50.0); Mean Corpuscular Hemoglobin 23.8 pg (28.0-32.0); Mean Corpuscular Hgb Conc. 31.9 g/dL (32.0-36.0); Mean Corpuscular Volume 74.7 fL (80.0-100.0); Monocytes % (auto) 8.1 % (0.0-12.0); Neutrophils % (auto) 60.8 % (37.0-80.0); Platelet Count (auto) 138 10^3/uL (140-450); Red Cell Distribution Width 17.5 % (11.8-14.3); White Blood Cell 3.7 10^3/uL (4.4-10.8)
[2021-03-13 14:31] LABS: Albumin 3.3 g/dL (3.4-5.0); Anion Gap 5 (5-15); Blood Urea Nitrogen 17 mg/dL (7-18); Calcium 8.2 mg/dL (8.5-10.1); Carbon Dioxide 32 mmol/L (21-32); Chloride 103 mmol/L (98-107); Glucose 129 mg/dL (74-106); Potassium 3.7 mmol/L (3.5-5.1); Sodium 140 mmol/L (136-145)
[2021-03-13 14:36] LABS: Alanine Aminotransferase 93 U/L (13-56); Alkaline Phosphatase 181 U/L (45-117); Aspartate Aminotransferase 68 U/L (15-37); Bilirubin, Total 0.4 mg/dL (0.2-1.0); GFR African American 126 mL/min; GFR Non-African American 104 mL/min; Total Protein 8.1 g/dL (6.4-8.2)
[2021-03-13] MEDS ORDERED: IOHEXOL 350 MG/ML 100ML IJ ONE (15:21)
[2021-03-13 17:41] VITALS: BP 153/92
== END 2021-03-13 19:07 | disposition home or self-care (01) ==
LOC: ER 11:20
DX: R07.89 Other chest pain (principal); R00.2 Palpitations; M79.605 Pain in left leg; M79.602 Pain in left arm; R06.02 Shortness of breath; I11.0 Hypertensive heart disease with heart failure; I50.9 Heart failure, unspecified; J44.9 Chronic obstructive pulmonary disease, unspecified; E11.9 Type 2 diabetes mellitus without complications; E78.5 Hyperlipidemia, unspecified; F17.210 Nicotine dependence, cigarettes, uncomplicated; F10.20 Alcohol dependence, uncomplicated; Z86.73 Personal history of transient ischemic attack (TIA), and cerebral infarction without residual deficits; Z20.822 Contact with and (suspected) exposure to COVID-19; Z79.899 Other long term (current) drug therapy; Z88.5 Allergy status to narcotic agent; Y90.9 Presence of alcohol in blood, level not specified
CPT/HCPCS: 36415; 71045; 71275; 80053; 83880; 84484; 85025; 85379; 87426; 93005; 93971; 99285; Q9967

== ENCOUNTER 2021-07-29 10:58 | Inpatient (IN) | payer MEDICAID ==
[~2021-07-29] VITALS: Ht 157.5 cm; Wt 114.7 kg
[2021-07-29 12:10] LABS: Basophils # (auto) 0 10 ^3/uL (0-0.2); Eosinophils # (auto) 0 10 ^3/uL (0-0.8); Hemoglobin 10.7 g/dL (12.2-16.2); Lymphocytes # (auto) 0.8 10 ^3/uL (0.4-5.4); Mean Corpuscular Hgb Conc. 30.8 g/dL (32.0-36.0); Monocytes # (auto) 0.2 10 ^3/uL (0-1.3); Neutrophils # (auto) 2.8 10 ^3/uL (1.6-8.6); Nucleated Red Blood Cells % 0.1 %
[2021-07-29 12:12] LABS: Basophils % (auto) 0.9 % (0.0-2.0); Eosinophils % (auto) 0.7 % (0.0-7.0); Hematocrit 34.8 % (36.0-46.0); Lymphocytes % (auto) 21.7 % (10.0-50.0); Mean Corpuscular Hemoglobin 24.5 pg (28.0-32.0); Mean Corpuscular Volume 79.6 fL (80.0-100.0); Monocytes % (auto) 6.2 % (0.0-12.0); Neutrophils % (auto) 70.5 % (37.0-80.0); Red Blood Cells 4.37 10^6/uL (4.0-5.20); Red Cell Distribution Width 19.3 % (11.8-14.3); White Blood Cell 3.9 10^3/uL (4.4-10.8)
[2021-07-29 12:28] LABS: INR 1.27 (0.9-1.15)
[2021-07-29 12:29] LABS: Albumin 2.7 g/dL (3.4-5.0); Magnesium 2.4 mg/dL (1.6-2.6); Potassium 3.6 mmol/L (3.5-5.1)
[2021-07-29 12:36] LABS: Bilirubin, Total 0.6 mg/dL (0.2-1.0); CRP High Sensitivity 0.37 mg/dL (< 0.3); Total Protein 8.7 g/dL (6.4-8.2)
[2021-07-29] MEDS ORDERED: IOHEXOL 300 MG/ML 100ML BOTTLE IJ ONE (20:04)
[2021-07-29] MEDS ORDERED: MORPHINE SULFATE INJECTION 2 MG/ML SYRG IV ONE (21:45)
[2021-07-29] MEDS ORDERED: ONDANSETRON HCL 4 MG/2 ML VIAL IV ONE (21:45)
[2021-07-29] MEDS ORDERED: PIPERACILLIN-TAZOB 3.375GM 100 ML IV ONE (22:15)
[2021-07-29] MEDS ORDERED: VANCOMYCIN 1GM/250ML 250 ML IV ONE (22:15)
[2021-07-30] MEDS ORDERED: NITROGLYCERIN 0.4 MG SL TAB SL PRN (04:30)
[2021-07-30] MEDS ORDERED: MORPHINE SULFATE INJECTION 2 MG/ML SYRG IV PRN (04:30)
[2021-07-30] MEDS: D5W/SOD CHL 0.45%/KCL 20MEQ 1,000 ML IV SCH ×2 (05:40→11:10)
[2021-07-30] MEDS ORDERED: LIDOCAINE W/ EPINEPHRINE 1% 20ML VIAL ONE (07:05)
[2021-07-30] MEDS ORDERED: ROCURONIUM 10MG/ML 10ML VIAL IV ONE (07:10)
[2021-07-30] MEDS ORDERED: SUCCINYLCHOLINE CHLORIDE 20 MG/ML 10ML VIAL IV ONE (07:10)
[2021-07-30] MEDS: PIPERACILLIN-TAZOB 3.375GM 100 ML IV SCH ×2 (11:45→18:06)
[2021-07-30] MEDS: METHADONE HCL 10 MG TAB PO SCH (11:45)
[2021-07-30] MEDS ORDERED: ALBUTEROL SULF 2.5 MG/0.5ML(0.5%) NEB SOLN NEB SCH (12:00)
[2021-07-30] MEDS: HYDROcodone-ACET 10/325MG TAB PO PRN ×2 (15:28→23:19)
[2021-07-30] MEDS ORDERED: cloNIDine HCL 0.1 MG TAB PO ONE (17:45)
[2021-07-30 17:59] VITALS: BP 182/94
[2021-07-30 19:09] VITALS: BP 165/101
[2021-07-30 20:00] VITALS: BP 182/94
[2021-07-30] MEDS: ENALAPRIL MALEATE 10 MG TAB PO SCH (23:17)
[2021-07-31] MEDS ORDERED: cloNIDine HCL 0.1 MG TAB PO PRN
[2021-07-31] MEDS: PIPERACILLIN-TAZOB 3.375GM 100 ML IV SCH ×4 (02:17→18:56)
[2021-07-31] MEDS: LEVOTHYROXINE SODIUM 100 MCG TAB PO SCH (04:47)
[2021-07-31 06:12] LABS: Basophils # (auto) 0 10 ^3/uL (0-0.2); Basophils % (auto) 0.9 % (0.0-2.0); Eosinophils # (auto) 0 10 ^3/uL (0-0.8); Eosinophils % (auto) 1.1 % (0.0-7.0); Hematocrit 34.4 % (36.0-46.0); Hemoglobin 10.4 g/dL (12.2-16.2); Lymphocytes # (auto) 0.9 10 ^3/uL (0.4-5.4); Lymphocytes % (auto) 24.9 % (10.0-50.0); Mean Corpuscular Hemoglobin 24.7 pg (28.0-32.0); Mean Corpuscular Hgb Conc. 30.1 g/dL (32.0-36.0); Mean Corpuscular Volume 82.1 fL (80.0-100.0); Monocytes # (auto) 0.3 10 ^3/uL (0-1.3); Monocytes % (auto) 8.3 % (0.0-12.0); Neutrophils # (auto) 2.4 10 ^3/uL (1.6-8.6); Neutrophils % (auto) 64.8 % (37.0-80.0); Nucleated Red Blood Cells % 0.2 %; Red Blood Cells 4.19 10^6/uL (4.0-5.20); Red Cell Distribution Width 19.6 % (11.8-14.3); White Blood Cell 3.7 10^3/uL (4.4-10.8)
[2021-07-31 06:21] LABS: BUN/Creatinine Ratio 20.9; Calcium 8.2 mg/dL (8.5-10.1); Potassium 4.8 mmol/L (3.5-5.1)
[2021-07-31 08:31] VITALS: BP 138/81
[2021-07-31] MEDS: HYDROcodone-ACET 10/325MG TAB PO PRN ×2 (08:44→21:20)
[2021-07-31] MEDS ORDERED: METHADONE PO SCH (10:00)
[2021-07-31] MEDS ORDERED: POTASSIUM CHL 10 Meq TABLET PO SCH (10:00)
[2021-07-31] MEDS ORDERED: FUROSEMIDE 40 MG TAB PO SCH (10:00)
[2021-07-31] MEDS ORDERED: METHADONE HCL PO SCH (10:00)
[2021-07-31] MEDS ORDERED: ENALAPRIL MALEATE 2.5 MG TAB PO SCH (10:00)
[2021-07-31] MEDS: amLODIPine BESYLATE 5 MG TAB PO SCH (10:45)
[2021-07-31] MEDS: ENALAPRIL MALEATE 10 MG TAB PO SCH ×2 (10:46→21:55)
[2021-07-31] MEDS: PANTOPRAZOLE 40 MG TAB PO SCH (10:46)
[2021-07-31] MEDS: METHADONE HCL 10 MG TAB PO SCH (10:48)
[2021-07-31 12:56] VITALS: BP 137/84
[2021-07-31 14:44] VITALS: BP 137/84
[2021-07-31 17:29] VITALS: BP 127/80
[2021-07-31 22:00] VITALS: BP 136/84
[2021-07-31] MEDS: FUROSEMIDE 40 MG/4 ML VIAL IV SCH (22:06)
[2021-07-31] MEDS: POTASSIUM CHL 10 Meq TABLET PO SCH (22:07)
[2021-07-31] MEDS: IPRATROPIUM BROM 0.5 MG/2.5ML INH SOL NEB SCH (23:40)
[2021-07-31] MEDS: ALBUTEROL SULF 2.5 MG/0.5ML(0.5%) NEB SOLN NEB SCH (23:40)
[2021-08-01] MEDS: PIPERACILLIN-TAZOB 3.375GM 100 ML IV SCH ×4 (00:07→17:26)
[2021-08-01] MEDS: HYDROcodone-ACET 10/325MG TAB PO PRN (03:31)
[2021-08-01 05:00] VITALS: BP 154/87
[2021-08-01] MEDS: IPRATROPIUM BROM 0.5 MG/2.5ML INH SOL NEB SCH ×3 (05:57→23:01)
[2021-08-01] MEDS: ALBUTEROL SULF 2.5 MG/0.5ML(0.5%) NEB SOLN NEB SCH ×3 (05:57→23:00)
[2021-08-01] MEDS: LEVOTHYROXINE SODIUM 100 MCG TAB PO SCH (06:44)
[2021-08-01 09:00] VITALS: BP 109/71
[2021-08-01] MEDS: FUROSEMIDE 40 MG/4 ML VIAL IV SCH ×2 (09:24→17:26)
[2021-08-01] MEDS: METHADONE HCL 10 MG TAB PO SCH (09:24)
[2021-08-01] MEDS: amLODIPine BESYLATE 5 MG TAB PO SCH (09:25)
[2021-08-01] MEDS: POTASSIUM CHL 10 Meq TABLET PO SCH ×2 (09:25→22:35)
[2021-08-01] MEDS: PANTOPRAZOLE 40 MG TAB PO SCH (09:25)
[2021-08-01] MEDS: ENALAPRIL MALEATE 10 MG TAB PO SCH ×2 (09:25→22:35)
[2021-08-01 13:00] VITALS: BP 127/90
[2021-08-01 14:28] LABS: Basophils # (auto) 0 10 ^3/uL (0-0.2); Basophils % (auto) 0.7 % (0.0-2.0); Eosinophils # (auto) 0 10 ^3/uL (0-0.8); Eosinophils % (auto) 0.7 % (0.0-7.0); Hematocrit 33.9 % (36.0-46.0); Hemoglobin 10.4 g/dL (12.2-16.2); Lymphocytes # (auto) 0.9 10 ^3/uL (0.4-5.4); Lymphocytes % (auto) 22.6 % (10.0-50.0); Mean Corpuscular Hemoglobin 24.5 pg (28.0-32.0); Mean Corpuscular Hgb Conc. 30.7 g/dL (32.0-36.0); Mean Corpuscular Volume 79.8 fL (80.0-100.0); Monocytes # (auto) 0.3 10 ^3/uL (0-1.3); Monocytes % (auto) 7.8 % (0.0-12.0); Neutrophils # (auto) 2.6 10 ^3/uL (1.6-8.6); Neutrophils % (auto) 68.2 % (37.0-80.0); Nucleated Red Blood Cells % 0.1 %; Red Blood Cells 4.25 10^6/uL (4.0-5.20); Red Cell Distribution Width 19.3 % (11.8-14.3); White Blood Cell 3.8 10^3/uL (4.4-10.8)
[2021-08-01 17:00] VITALS: BP 125/75
[2021-08-01 17:38] LABS: Albumin 2.8 g/dL (3.4-5.0); Calcium 7.9 mg/dL (8.5-10.1); Potassium 3.9 mmol/L (3.5-5.1)
[2021-08-01 17:42] LABS: BUN/Creatinine Ratio 16.3; Bilirubin, Total 0.6 mg/dL (0.2-1.0); Total Protein 8.5 g/dL (6.4-8.2)
[2021-08-01 22:00] VITALS: BP 124/72
[2021-08-02] MEDS: PIPERACILLIN-TAZOB 3.375GM 100 ML IV SCH ×3 (00:02→12:04)
[2021-08-02] MEDS: HYDROcodone-ACET 10/325MG TAB PO PRN (00:02)
[2021-08-02 05:14] VITALS: BP 114/52
[2021-08-02] MEDS: FUROSEMIDE 40 MG/4 ML VIAL IV SCH (06:31)
[2021-08-02] MEDS: LEVOTHYROXINE SODIUM 100 MCG TAB PO SCH (06:31)
[2021-08-02 09:00] VITALS: BP 111/64
[2021-08-02] MEDS: POTASSIUM CHL 10 Meq TABLET PO SCH (09:12)
[2021-08-02] MEDS: ENALAPRIL MALEATE 10 MG TAB PO SCH (09:13)
[2021-08-02] MEDS: PANTOPRAZOLE 40 MG TAB PO SCH (09:13)
[2021-08-02] MEDS: amLODIPine BESYLATE 5 MG TAB PO SCH (09:14)
[2021-08-02] MEDS: METHADONE HCL 10 MG TAB PO SCH (09:15)
[2021-08-02 12:36] VITALS: BP 121/81
[2021-08-02] MEDS ORDERED: POTA10TA51 PO (14:11)
[2021-08-02] MEDS ORDERED: ENAL5TAB10 PO (14:11)
[2021-08-02] MEDS ORDERED: SULF400T11 PO (14:11)
[2021-08-02] MEDS ORDERED: FURO40TA4 PO (14:11)
== END 2021-08-02 16:12 | disposition home health service (06) | DRG 383 ==
LOC: ER 10:58 → OVERFLOW 07-30 04:18 → WEST WING 07-30 17:24
PROVIDERS: ADMIT Emergency Medicine; ATTEND Hospitalist
PROC: 5A09357 Assistance with Respiratory Ventilation, Less than 24 Consecutive Hours, Continuous Positive Airway Pressure (ICD-10-PCS; principal; 2021-07-31)
PROC: 5A09357 Assistance with Respiratory Ventilation, Less than 24 Consecutive Hours, Continuous Positive Airway Pressure (ICD-10-PCS; 2021-08-01)
DX: L03.311 Cellulitis of abdominal wall (principal); J96.10 Chronic respiratory failure, unspecified whether with hypoxia or hypercapnia; I50.9 Heart failure, unspecified; I11.0 Hypertensive heart disease with heart failure; K74.60 Unspecified cirrhosis of liver; E88.09 Other disorders of plasma-protein metabolism, not elsewhere classified; E03.9 Hypothyroidism, unspecified; L03.119 Cellulitis of unspecified part of limb; K42.9 Umbilical hernia without obstruction or gangrene; Z20.822 Contact with and (suspected) exposure to COVID-19; E66.01 Morbid (severe) obesity due to excess calories; F17.210 Nicotine dependence, cigarettes, uncomplicated; G47.33 Obstructive sleep apnea (adult) (pediatric); G89.4 Chronic pain syndrome; I25.10 Atherosclerotic heart disease of native coronary artery without angina pectoris; Z98.84 Bariatric surgery status; J44.9 Chronic obstructive pulmonary disease, unspecified; Z80.8 Family history of malignant neoplasm of other organs or systems; Z68.41 Body mass index [BMI] 40.0-44.9, adult; Z88.6 Allergy status to analgesic agent; Z79.891 Long term (current) use of opiate analgesic; Z83.3 Family history of diabetes mellitus; Z82.62 Family history of osteoporosis; Z86.73 Personal history of transient ischemic attack (TIA), and cerebral infarction without residual deficits; I25.2 Old myocardial infarction
CPT/HCPCS: 36415; 71045; 74177; 80048; 80053; 83605; 83735; 83880; 84484; 85025; 85610; 85652; 86141; 87040; 87426; 93005; 93970; 94640; 94660; 96365; 96366; 96368; 96375; 97163; G0378; J0330; J2405; J2543

== ENCOUNTER 2022-01-01 23:05 | Inpatient (IN) | payer MEDICAID ==
[~2022-01-01] VITALS: Ht 154.9 cm; Wt 124.3 kg
[~2022-01-01 23:05] MED LIST changes: -AZIT500T66 PO; -PRED20TA2 PO; +SULF400T11 PO
[2022-01-02 00:04] LABS: Basophils # (auto) 0 10 ^3/uL (0-0.2); Eosinophils # (auto) 0 10 ^3/uL (0-0.8); Hemoglobin 9.9 g/dL (12.2-16.2); Monocytes # (auto) 0.2 10 ^3/uL (0-1.3); Monocytes % (auto) 4.9 % (0.0-12.0); Neutrophils # (auto) 2.8 10 ^3/uL (1.6-8.6); Nucleated Red Blood Cells % 0.1 %; White Blood Cell 3.3 10^3/uL (4.4-10.8)
[2022-01-02 00:06] LABS: Basophils % (auto) 0.3 % (0.0-2.0); Hematocrit 30.9 % (36.0-46.0); Lymphocytes # (auto) 0.3 10 ^3/uL (0.4-5.4); Lymphocytes % (auto) 10.4 % (10.0-50.0); Mean Corpuscular Hemoglobin 27.3 pg (28.0-32.0); Mean Corpuscular Volume 85.2 fL (80.0-100.0); Neutrophils % (auto) 84.4 % (37.0-80.0); Red Blood Cells 3.63 10^6/uL (4.0-5.20); Red Cell Distribution Width 17.2 % (11.8-14.3)
[2022-01-02 00:25] LABS: Albumin 2.8 g/dL (3.4-5.0); BUN/Creatinine Ratio 17.9; Calcium 7.8 mg/dL (8.5-10.1); Potassium 3.8 mmol/L (3.5-5.1)
[2022-01-02 00:27] LABS: Bilirubin, Total 0.4 mg/dL (0.2-1.0); Total Protein 8.3 g/dL (6.4-8.2)
[2022-01-02] MEDS ORDERED: ALBUTEROL SULF 2.5 MG/0.5ML(0.5%) NEB SOLN NEB ONE (00:30)
[2022-01-02] MEDS ORDERED: DexAMETHasone INJECTION 10 MG in D5W 5% 50 ML IV ONE (00:30)
[2022-01-02] MEDS ORDERED: FUROSEMIDE 40 MG/4 ML VIAL IV ONE (00:30)
[2022-01-02] MEDS ORDERED: IPRATROPIUM BROM 0.5 MG/2.5ML INH SOL NEB ONE (00:30)
[2022-01-02] MEDS ORDERED: levoFLOXacin 250 MG TAB PO ONE (00:30)
[2022-01-02] MEDS ORDERED: ALBUTEROL SULF 2.5 MG/0.5ML(0.5%) NEB SOLN ONE (00:44)
[2022-01-02] MEDS ORDERED: IPRATROPIUM BROM 0.5 MG/2.5ML INH SOL ONE (00:44)
[2022-01-02] MEDS ORDERED: DexAMETHasone SOD PHOS 4 MG/1ML SDV INJ ONE ×2 (01:10)
[2022-01-02] MEDS ORDERED: NITROGLYCERIN 0.4 MG SL TAB SL PRN (02:15)
[2022-01-02] MEDS ORDERED: ONDANSETRON HCL 4 MG/2 ML VIAL IV PRN (02:15)
[2022-01-02] MEDS ORDERED: ALBUTEROL SULF 2.5 MG/0.5ML(0.5%) NEB SOLN NEB PRN (02:15)
[2022-01-02] MEDS ORDERED: MORPHINE SULFATE INJECTION 2 MG/ML SYRG IV PRN ×2 (02:15)
[2022-01-02] MEDS ORDERED: DOCUSATE SOD 100 MG CAP PO PRN (02:15)
[2022-01-02 03:12] VITALS: BP 140/72
[2022-01-02 04:00] VITALS: BP 118/68
[2022-01-02] MEDS: HYDROcodone-ACET 10/325MG TAB PO PRN ×3 (04:32→21:43)
[2022-01-02 06:03] VITALS: BP 126/75
[2022-01-02 07:01] LABS: Basophils # (auto) 0 10 ^3/uL (0-0.2); Basophils % (auto) 0.1 % (0.0-2.0); Eosinophils # (auto) 0 10 ^3/uL (0-0.8); Hematocrit 31.3 % (36.0-46.0); Hemoglobin 10.2 g/dL (12.2-16.2); Lymphocytes # (auto) 0.4 10 ^3/uL (0.4-5.4); Lymphocytes % (auto) 13.5 % (10.0-50.0); Mean Corpuscular Hemoglobin 27.7 pg (28.0-32.0); Mean Corpuscular Hgb Conc. 32.5 g/dL (32.0-36.0); Mean Corpuscular Volume 85.3 fL (80.0-100.0); Monocytes # (auto) 0.1 10 ^3/uL (0-1.3); Monocytes % (auto) 3.5 % (0.0-12.0); Neutrophils # (auto) 2.3 10 ^3/uL (1.6-8.6); Neutrophils % (auto) 82.9 % (37.0-80.0); Nucleated Red Blood Cells % 0.3 %; Red Blood Cells 3.68 10^6/uL (4.0-5.20); Red Cell Distribution Width 16.8 % (11.8-14.3); White Blood Cell 2.8 10^3/uL (4.4-10.8)
[2022-01-02 07:18] LABS: Albumin 2.9 g/dL (3.4-5.0); BUN/Creatinine Ratio 16.9; Calcium 7.9 mg/dL (8.5-10.1)
[2022-01-02 07:21] LABS: Bilirubin, Total 0.3 mg/dL (0.2-1.0); Total Protein 8.8 g/dL (6.4-8.2)
[2022-01-02] MEDS: cefTRIAXone 1GM/50ML D5W 50 ML IV SCH (11:06)
[2022-01-02] MEDS: FUROSEMIDE 40 MG TAB PO SCH (11:19)
[2022-01-02] MEDS: amLODIPine BESYLATE 5 MG TAB PO SCH (11:19)
[2022-01-02] MEDS: ENALAPRIL MALEATE 10 MG TAB PO SCH ×2 (11:20→21:44)
[2022-01-02] MEDS: ALBUTEROL SULF 2.5 MG/0.5ML(0.5%) NEB SOLN NEB SCH ×3 (11:33→21:55)
[2022-01-02] MEDS: BUDESONIDE (INHALATION) 0.5 MG/2 ML NEB NEB SCH ×2 (11:33→18:59)
[2022-01-02] MEDS: AZITHROMYCIN 500MG/ 250ML 250 ML IV SCH (12:23)
[2022-01-02 13:00] VITALS: BP 164/73
[2022-01-02] MEDS: OMEPRAZOLE 20MG/10ML ORAL SUSP PO SCH (13:05)
[2022-01-02 17:00] VITALS: BP 122/68
[2022-01-02 22:00] VITALS: BP 135/82
[2022-01-03] MEDS: ALBUTEROL SULF 2.5 MG/0.5ML(0.5%) NEB SOLN NEB SCH ×6 (02:18→22:17)
[2022-01-03] MEDS: HYDROcodone-ACET 10/325MG TAB PO PRN (03:50)
[2022-01-03 05:00] VITALS: BP 155/88
[2022-01-03] MEDS: LEVOTHYROXINE SODIUM 100 MCG TAB PO SCH (06:39)
[2022-01-03] MEDS: BUDESONIDE (INHALATION) 0.5 MG/2 ML NEB NEB SCH ×2 (08:09→22:17)
[2022-01-03] MEDS: cefTRIAXone 1GM/50ML D5W 50 ML IV SCH (08:45)
[2022-01-03 09:00] VITALS: BP 155/89
[2022-01-03] MEDS: AZITHROMYCIN 500MG/ 250ML 250 ML IV SCH (09:52)
[2022-01-03] MEDS: amLODIPine BESYLATE 5 MG TAB PO SCH (09:53)
[2022-01-03] MEDS: FUROSEMIDE 40 MG TAB PO SCH (09:53)
[2022-01-03] MEDS: ENALAPRIL MALEATE 10 MG TAB PO SCH ×2 (09:54→22:25)
[2022-01-03] MEDS: OMEPRAZOLE 20MG/10ML ORAL SUSP PO SCH (10:00)
[2022-01-03] MEDS ORDERED: PRED20TA2 PO (11:54)
[2022-01-03] MEDS ORDERED: LEVO500T31 PO (11:54)
[2022-01-03] MEDS ORDERED: IPRIH IN (11:54)
[2022-01-03] MEDS ORDERED: ALBU0.084 NEB (11:54)
[2022-01-03] MEDS ORDERED: predniSONE 20 MG TAB PO ONE (12:00)
[2022-01-03] MEDS ORDERED: METHADONE HCL 10 MG TAB PO SCH (12:45)
[2022-01-03] MEDS ORDERED: METH5TAB2 PO (13:30)
[2022-01-03] MEDS ORDERED: METHADONE PO SCH (13:37)
[2022-01-03] MEDS: SALINE 0.65 % NASAL SPRAY 45ML BOTTLE EACHNOSTRI SCH ×3 (14:52→22:00)
[2022-01-03 21:56] VITALS: BP 125/72
[2022-01-04] MEDS: ALBUTEROL SULF 2.5 MG/0.5ML(0.5%) NEB SOLN NEB SCH ×2 (02:07→05:48)
[2022-01-04] MEDS: SALINE 0.65 % NASAL SPRAY 45ML BOTTLE EACHNOSTRI SCH (05:41)
[2022-01-04] MEDS: BUDESONIDE (INHALATION) 0.5 MG/2 ML NEB NEB SCH (05:48)
[2022-01-04 05:56] VITALS: BP 144/76
[2022-01-04] MEDS: LEVOTHYROXINE SODIUM 100 MCG TAB PO SCH (06:32)
[2022-01-04 09:00] VITALS: BP 142/62
[2022-01-04] MEDS ORDERED: levoFLOXacin 500 MG TAB PO SCH (10:00)
== END 2022-01-04 09:36 | disposition home health service (06) | DRG 139 ==
LOC: ER 23:05 → EDBD 23:05 → TELE 01-02 02:05 → TELE-WESTW 01-02 09:21
PROVIDERS: ADMIT Hospitalist; ATTEND Hospitalist
PROC: 5A09357 Assistance with Respiratory Ventilation, Less than 24 Consecutive Hours, Continuous Positive Airway Pressure (ICD-10-PCS; principal; 2022-01-02)
PROC: 5A09357 Assistance with Respiratory Ventilation, Less than 24 Consecutive Hours, Continuous Positive Airway Pressure (ICD-10-PCS; 2022-01-03)
PROC: 5A09357 Assistance with Respiratory Ventilation, Less than 24 Consecutive Hours, Continuous Positive Airway Pressure (ICD-10-PCS; 2022-01-04)
DX: J18.9 Pneumonia, unspecified organism (principal); J96.21 Acute and chronic respiratory failure with hypoxia; D69.6 Thrombocytopenia, unspecified; J44.1 Chronic obstructive pulmonary disease with (acute) exacerbation; I11.0 Hypertensive heart disease with heart failure; I50.9 Heart failure, unspecified; E66.01 Morbid (severe) obesity due to excess calories; F12.90 Cannabis use, unspecified, uncomplicated; F17.210 Nicotine dependence, cigarettes, uncomplicated; E03.9 Hypothyroidism, unspecified; G47.33 Obstructive sleep apnea (adult) (pediatric); G89.4 Chronic pain syndrome; Z20.822 Contact with and (suspected) exposure to COVID-19; J96.22 Acute and chronic respiratory failure with hypercapnia; J98.11 Atelectasis; Z68.42 Body mass index [BMI] 45.0-49.9, adult; Z82.49 Family history of ischemic heart disease and other diseases of the circulatory system; Z80.8 Family history of malignant neoplasm of other organs or systems; Z82.62 Family history of osteoporosis; Z83.3 Family history of diabetes mellitus; Z86.73 Personal history of transient ischemic attack (TIA), and cerebral infarction without residual deficits; Z99.81 Dependence on supplemental oxygen; Z91.19 Patient's noncompliance with other medical treatment and regimen
CPT/HCPCS: 36415; 36600; 71045; 80053; 82805; 83880; 84484; 85025; 93005; 94640; 94660; 96365; 96375; 99291; G0378; J0696; J1100; J7060

== ENCOUNTER 2022-06-15 07:31 | Inpatient (IN) | payer MEDICAID ==
[~2022-06-15] VITALS: Ht 152.4 cm; Wt 127.6 kg
[~2022-06-15 07:31] MED LIST changes: +IPRIH IN; +LEVO500T31 PO; +METH5TAB2 PO; +PRED20TA2 PO; -SULF400T11 PO
[2022-06-15 08:51] LABS: Basophils # (auto) 0 10 ^3/uL (0-0.2); Basophils % (auto) 0.9 % (0.0-2.0); Eosinophils # (auto) 0 10 ^3/uL (0-0.8); Eosinophils % (auto) 0.7 % (0.0-7.0); Hematocrit 34.9 % (36.0-46.0); Hemoglobin 11.1 g/dL (12.2-16.2); Lymphocytes # (auto) 1.4 10 ^3/uL (0.4-5.4); Lymphocytes % (auto) 40.7 % (10.0-50.0); Mean Corpuscular Hemoglobin 27.7 pg (28.0-32.0); Mean Corpuscular Hgb Conc. 31.9 g/dL (32.0-36.0); Mean Corpuscular Volume 86.8 fL (80.0-100.0); Monocytes # (auto) 0.2 10 ^3/uL (0-1.3); Monocytes % (auto) 7.1 % (0.0-12.0); Neutrophils # (auto) 1.7 10 ^3/uL (1.6-8.6); Neutrophils % (auto) 50.6 % (37.0-80.0); Nucleated Red Blood Cells % 0.1 %; Red Blood Cells 4.02 10^6/uL (4.0-5.20); Red Cell Distribution Width 17.6 % (11.8-14.3); White Blood Cell 3.4 10^3/uL (4.4-10.8)
[2022-06-15 09:09] LABS: Albumin 3.1 g/dL (3.4-5.0); Calcium 7.7 mg/dL (8.5-10.1); Potassium 3.8 mmol/L (3.5-5.1)
[2022-06-15 09:12] LABS: BUN/Creatinine Ratio 28.1; Bilirubin, Total 0.6 mg/dL (0.2-1.0); Total Protein 8.5 g/dL (6.4-8.2)
[2022-06-15 10:55] LABS: Urine Bacteria NONE SEEN /hpf (None Seen); Urine Blood 1+ /uL (Negative); Urine Mucus FEW (None Seen); Urine Specific Gravity 1.025 (1.001-1.035); Urine WBC 3 /hpf (0 - 5)
[2022-06-15] MEDS ORDERED: LORazepam 2MG/ML-1ML VIAL IV ONE (11:15)
[2022-06-15] MEDS ORDERED: DOCUSATE SOD 100 MG CAP PO PRN (13:45)
[2022-06-15] MEDS ORDERED: ACETAMINOPHEN 325 MG TAB PO PRN (13:45)
[2022-06-15] MEDS ORDERED: MORPHINE SULFATE INJ 2 MG/ml SYRG IV PRN (13:45)
[2022-06-15] MEDS ORDERED: NITROGLYCERIN 0.4 MG SL TAB SL PRN (13:45)
[2022-06-15] MEDS ORDERED: HYDROcodone-ACET 5/325MG TAB PO PRN (13:45)
[2022-06-15 14:16] LABS: Amphetamine Screen, Urine NEGATIVE (NEGATIVE); Barbiturate Scree,Urine NEGATIVE (NEGATIVE); Benzodiazephine Screen, Urine NEGATIVE (NEGATIVE); Cannabinoid Screen, Urine POSITIVE (NEGATIVE); Cocaine Screen, Urine NEGATIVE (NEGATIVE); Opiate Scree,Urine NEGATIVE (NEGATIVE); Phencyclidine Screen, Urine NEGATIVE (NEGATIVE)
[2022-06-15] MEDS ORDERED: DexAMETHasone SOD PHOS 10MG/1ML VIAL INJ IV ONE (15:15)
[2022-06-15] MEDS ORDERED: AZITHROMYCIN 250 MG TAB PO ONE (15:15)
[2022-06-15] MEDS: ONDANSETRON HCL 4 MG/2 ML VIAL IV PRN (15:37)
[2022-06-15] MEDS: MORPHINE SULFATE INJ 2 MG/ml SYRG IV PRN ×2 (15:38→20:12)
[2022-06-15 16:58] VITALS: BP 134/83
[2022-06-15] MEDS: chlordiazePOXIDE HCL 25 MG CAP PO PRN (18:11)
[2022-06-15] MEDS: IPRATROPIUM BROM 0.5 MG/2.5ML INH SOL NEB SCH (18:20)
[2022-06-15] MEDS: TEMAZEPAM 15 MG CAP PO PRN (21:19)
[2022-06-16] MEDS: ENALAPRIL MALEATE 10 MG TAB PO SCH ×3 (00:06→22:19)
[2022-06-16] MEDS: MORPHINE SULFATE INJ 2 MG/ml SYRG IV PRN ×6 (00:06→22:20)
[2022-06-16] MEDS: methylPREDNISolone SOD SUCC 40 MG/ML VL IV SCH ×3 (00:06→22:14)
[2022-06-16] MEDS: chlordiazePOXIDE HCL 25 MG CAP PO PRN ×3 (03:10→23:30)
[2022-06-16] MEDS: IPRATROPIUM BROM 0.5 MG/2.5ML INH SOL NEB SCH ×4 (06:25→19:04)
[2022-06-16 07:15] LABS: Basophils # (auto) 0 10 ^3/uL (0-0.2); Basophils % (auto) 0.3 % (0.0-2.0); Eosinophils # (auto) 0 10 ^3/uL (0-0.8); Hemoglobin 11.2 g/dL (12.2-16.2); Lymphocytes # (auto) 0.5 10 ^3/uL (0.4-5.4); Lymphocytes % (auto) 15.4 % (10.0-50.0); Mean Corpuscular Hemoglobin 27.8 pg (28.0-32.0); Mean Corpuscular Hgb Conc. 32.1 g/dL (32.0-36.0); Mean Corpuscular Volume 86.4 fL (80.0-100.0); Monocytes # (auto) 0.1 10 ^3/uL (0-1.3); Neutrophils # (auto) 2.7 10 ^3/uL (1.6-8.6); Neutrophils % (auto) 82.3 % (37.0-80.0); Red Blood Cells 4.05 10^6/uL (4.0-5.20); Red Cell Distribution Width 16.8 % (11.8-14.3); White Blood Cell 3.2 10^3/uL (4.4-10.8)
[2022-06-16] MEDS: cefTRIAXone 1GM/50ML D5W 50 ML IV SCH (07:28)
[2022-06-16] MEDS: ENOXAPARIN SOD 40 MG/0.4 ML SYRINGE SC SCH ×2 (07:28→22:14)
[2022-06-16] MEDS: LEVOTHYROXINE SODIUM 100 MCG TAB PO SCH (07:28)
[2022-06-16 07:30] LABS: Albumin 3.2 g/dL (3.4-5.0); Calcium 8.3 mg/dL (8.5-10.1); Potassium 4.9 mmol/L (3.5-5.1)
[2022-06-16 07:34] LABS: Cholesterol 120 mg/dL (< 200); HDL Cholesterol 65 mg/dL (40-59); LDL Cholesterol 57 mg/dL (< 100); Triglycerides 55 mg/dL (< 150)
[2022-06-16 07:35] LABS: BUN/Creatinine Ratio 25.6
[2022-06-16] MEDS ORDERED: FUROSEMIDE 40 MG TAB PO SCH (10:00)
[2022-06-16] MEDS: ONDANSETRON HCL 4 MG/2 ML VIAL IV PRN (12:15)
[2022-06-16] MEDS ORDERED: FURO20TA3 PO (17:27)
[2022-06-16] MEDS ORDERED: FAMO-12 PO (17:53)
[2022-06-16] MEDS ORDERED: TIZA2CAP7 PO (17:53)
[2022-06-16] MEDS ORDERED: METH10T PO (17:53)
[2022-06-16] MEDS ORDERED: MULT-1018 PO (17:53)
[2022-06-16] MEDS ORDERED: LOSA25TA38 PO (17:53)
[2022-06-16] MEDS ORDERED: CYAN-17 PO (17:53)
[2022-06-16] MEDS ORDERED: PRED10TA PO (17:53)
[2022-06-16] MEDS ORDERED: NIC21P TOP (17:54)
[2022-06-16] MEDS ORDERED: LISINOPRIL 10 MG TAB PO ONE (20:00)
[2022-06-16 22:00] VITALS: BP 152/90
[2022-06-16] MEDS: CARVEDILOL 3.125 MG TAB PO SCH (22:19)
[2022-06-16] MEDS: TEMAZEPAM 15 MG CAP PO PRN (22:40)
[2022-06-17] MEDS: IPRATROPIUM BROM 0.5 MG/2.5ML INH SOL NEB SCH ×5 (00:37→19:06)
[2022-06-17] MEDS: MORPHINE SULFATE INJ 2 MG/ml SYRG IV PRN ×4 (03:55→23:23)
[2022-06-17 05:21] VITALS: BP 140/92
[2022-06-17] MEDS: FUROSEMIDE 40 MG/4 ML VIAL IV SCH ×2 (06:00→18:38)
[2022-06-17] MEDS: LEVOTHYROXINE SODIUM 100 MCG TAB PO SCH (06:40)
[2022-06-17] MEDS: chlordiazePOXIDE HCL 25 MG CAP PO PRN ×2 (07:00→21:11)
[2022-06-17 08:30] VITALS: BP 139/76
[2022-06-17] MEDS: methylPREDNISolone SOD SUCC 40 MG/ML VL IV SCH ×2 (10:08→23:20)
[2022-06-17] MEDS: cefTRIAXone 1GM/50ML D5W 50 ML IV SCH (10:09)
[2022-06-17] MEDS: ENALAPRIL MALEATE 10 MG TAB PO SCH ×2 (10:22→23:21)
[2022-06-17] MEDS: CARVEDILOL 3.125 MG TAB PO SCH ×2 (10:23→23:20)
[2022-06-17] MEDS: LISINOPRIL 10 MG TAB PO SCH (10:24)
[2022-06-17] MEDS: ENOXAPARIN SOD 40 MG/0.4 ML SYRINGE SC SCH ×2 (10:25→23:22)
[2022-06-17 12:30] VITALS: BP 154/96
[2022-06-17 17:00] VITALS: BP 158/94
[2022-06-17] MEDS: METHADONE HCL 10 MG TAB PO SCH (18:38)
[2022-06-17 20:00] VITALS: BP 143/84
[2022-06-17 22:00] VITALS: BP 165/95
[2022-06-18] MEDS: IPRATROPIUM BROM 0.5 MG/2.5ML INH SOL NEB SCH ×3 (00:22→12:00)
[2022-06-18 05:00] VITALS: BP 145/91
[2022-06-18] MEDS: MORPHINE SULFATE INJ 2 MG/ml SYRG IV PRN (05:28)
[2022-06-18] MEDS: FUROSEMIDE 40 MG/4 ML VIAL IV SCH (05:29)
[2022-06-18] MEDS: LEVOTHYROXINE SODIUM 100 MCG TAB PO SCH (05:29)
[2022-06-18] MEDS: chlordiazePOXIDE HCL 25 MG CAP PO PRN ×2 (05:31→14:47)
[2022-06-18 09:00] VITALS: BP 153/89
[2022-06-18] MEDS: cefTRIAXone 1GM/50ML D5W 50 ML IV SCH (09:59)
[2022-06-18] MEDS: ENOXAPARIN SOD 40 MG/0.4 ML SYRINGE SC SCH (09:59)
[2022-06-18] MEDS ORDERED: METHADONE HCL 10 MG TAB PO SCH (10:00)
[2022-06-18] MEDS: LISINOPRIL 10 MG TAB PO SCH (10:00)
[2022-06-18] MEDS ORDERED: LOSARTAN POTASSIUM 25 MG TAB PO SCH (10:00)
[2022-06-18] MEDS: methylPREDNISolone SOD SUCC 40 MG/ML VL IV SCH (10:01)
[2022-06-18] MEDS: CARVEDILOL 3.125 MG TAB PO SCH (10:01)
[2022-06-18] MEDS: METHADONE HCL 10 MG TAB PO SCH (10:02)
[2022-06-18] MEDS: ENALAPRIL MALEATE 10 MG TAB PO SCH (10:07)
[2022-06-18] MEDS ORDERED: AZITHROMYCIN 250 MG TAB PO ONE (11:00)
[2022-06-18] MEDS ORDERED: PRED20TA2 PO (11:09)
[2022-06-18] MEDS ORDERED: FLUT1AER3 IN (11:09)
[2022-06-18] MEDS ORDERED: AZIT250T9 PO (11:10)
[2022-06-18] MEDS ORDERED: LOS25T GT (11:56)
[2022-06-18] MEDS ORDERED: CHLO25CA56 PO (11:56)
[2022-06-18] MEDS ORDERED: CAR3125T OR (11:56)
[2022-06-18 13:00] VITALS: BP 144/79
[2022-06-18] MEDS ORDERED: GABA300C10 PO (15:36)
[2022-06-18 16:12] VITALS: BP 140/72
[2022-06-18 17:00] VITALS: BP 155/89
[2022-06-19] MEDS ORDERED: AZITHROMYCIN 250 MG TAB PO SCH (10:00)
== END 2022-06-18 17:00 | disposition home or self-care (01) | DRG 133 ==
LOC: EDBD 07:31 → EDUNIT# 07:31 → ER 07:31 → TELE 13:43 → TELE-WESTW 06-16 14:25
PROVIDERS: ADMIT Nurse Practitioner; ATTEND Nurse Practitioner
PROC: 5A09357 Assistance with Respiratory Ventilation, Less than 24 Consecutive Hours, Continuous Positive Airway Pressure (ICD-10-PCS; principal; 2022-06-16)
PROC: 5A09357 Assistance with Respiratory Ventilation, Less than 24 Consecutive Hours, Continuous Positive Airway Pressure (ICD-10-PCS; 2022-06-17)
PROC: 5A09357 Assistance with Respiratory Ventilation, Less than 24 Consecutive Hours, Continuous Positive Airway Pressure (ICD-10-PCS; 2022-06-18)
DX: J96.21 Acute and chronic respiratory failure with hypoxia (principal); D69.6 Thrombocytopenia, unspecified; I50.9 Heart failure, unspecified; Z68.43 Body mass index [BMI] 50.0-59.9, adult; J44.1 Chronic obstructive pulmonary disease with (acute) exacerbation; E66.2 Morbid (severe) obesity with alveolar hypoventilation; I11.0 Hypertensive heart disease with heart failure; Y90.6 Blood alcohol level of 120-199 mg/100 ml; Z20.822 Contact with and (suspected) exposure to COVID-19; I25.10 Atherosclerotic heart disease of native coronary artery without angina pectoris; D64.9 Anemia, unspecified; F10.129 Alcohol abuse with intoxication, unspecified; E03.9 Hypothyroidism, unspecified; E78.5 Hyperlipidemia, unspecified; F12.10 Cannabis abuse, uncomplicated; F17.210 Nicotine dependence, cigarettes, uncomplicated; M41.9 Scoliosis, unspecified; Z80.8 Family history of malignant neoplasm of other organs or systems; Z82.49 Family history of ischemic heart disease and other diseases of the circulatory system; Z82.62 Family history of osteoporosis; Z83.3 Family history of diabetes mellitus; Z85.848 Personal history of malignant neoplasm of other parts of nervous tissue; Z86.73 Personal history of transient ischemic attack (TIA), and cerebral infarction without residual deficits; Z91.14 Patient's other noncompliance with medication regimen; Z98.84 Bariatric surgery status
CPT/HCPCS: 36415; 71045; 71250; 80053; 80061; 80307; 80320; 81001; 83735; 83880; 84443; 84484; 85025; 93005; 93306; 93970; 94640; 94660; 96365; 96375; 97163; G0378; J0696; J1100; J2405

== ENCOUNTER 2022-06-27 20:46 | Inpatient (IN) | payer MEDICAID ==
[~2022-06-27] VITALS: Ht 162.6 cm; Wt 115.0 kg
[~2022-06-27 20:46] MED LIST changes: +AZIT250T9 PO; +CAR3125T OR; +CYAN-17 PO; -ENAL5TAB10 PO; +FAMO-12 PO; +FLUT1AER3 IN; +GABA300C10 PO; -LEVO500T31 PO; +LOS25T GT; +LOSA25TA38 PO; -METH40TA13 PO; -METH5TAB2 PO; +NIC21P TOP; -TIZA2CAP12 PO
[2022-06-27 23:27] LABS: Basophils # (auto) 0 10 ^3/uL (0-0.2); Basophils % (auto) 0.2 % (0.0-2.0); Eosinophils # (auto) 0 10 ^3/uL (0-0.8); Eosinophils % (auto) 0.1 % (0.0-7.0); Hematocrit 36.5 % (36.0-46.0); Hemoglobin 11.6 g/dL (12.2-16.2); Lymphocytes # (auto) 0.5 10 ^3/uL (0.4-5.4); Lymphocytes % (auto) 7.8 % (10.0-50.0); Mean Corpuscular Hemoglobin 28.4 pg (28.0-32.0); Mean Corpuscular Hgb Conc. 31.7 g/dL (32.0-36.0); Mean Corpuscular Volume 89.5 fL (80.0-100.0); Monocytes # (auto) 0.3 10 ^3/uL (0-1.3); Monocytes % (auto) 5.6 % (0.0-12.0); Neutrophils # (auto) 5.2 10 ^3/uL (1.6-8.6); Neutrophils % (auto) 86.3 % (37.0-80.0); Nucleated Red Blood Cells % 0.1 %; Red Blood Cells 4.08 10^6/uL (4.0-5.20); White Blood Cell 6.1 10^3/uL (4.4-10.8)
[2022-06-27 23:42] LABS: Albumin 3.3 g/dL (3.4-5.0); BUN/Creatinine Ratio 26.1; Potassium 3.8 mmol/L (3.5-5.1)
[2022-06-28 00:09] LABS: Bilirubin, Total 0.7 mg/dL (0.2-1.0); Calcium 7.7 mg/dL (8.5-10.1); Total Protein 8.1 g/dL (6.4-8.2)
[2022-06-28] MEDS ORDERED: ALBUTEROL SULF 2.5 MG/0.5ML(0.5%) NEB SOLN NEB ONE (01:00)
[2022-06-28] MEDS ORDERED: methylPREDNISolone SOD SUCC 125 MG/2 ML VL IV ONE (01:00)
[2022-06-28] MEDS ORDERED: IPRATROPIUM BROM 0.5 MG/2.5ML INH SOL NEB ONE (01:00)
[2022-06-28] MEDS ORDERED: FUROSEMIDE 40 MG/4 ML VIAL IV ONE (01:30)
[2022-06-28] MEDS ORDERED: MORPHINE SULFATE INJ 2 MG/ml SYRG IV PRN (02:45)
[2022-06-28] MEDS ORDERED: IPRATROPIUM BROM 0.5 MG/2.5ML INH SOL NEB PRN (02:45)
[2022-06-28] MEDS ORDERED: NITROGLYCERIN 0.4 MG SL TAB SL PRN (02:45)
[2022-06-28] MEDS ORDERED: ONDANSETRON HCL 4 MG/2 ML VIAL IV PRN (02:45)
[2022-06-28] MEDS ORDERED: DOCUSATE SOD 100 MG CAP PO PRN (02:45)
[2022-06-28] MEDS ORDERED: DEXTROSE (50%) 50ML SYRG IV PRN (02:45)
[2022-06-28 03:14] LABS: Basophils # (auto) 0 10 ^3/uL (0-0.2); Basophils % (auto) 0.2 % (0.0-2.0); Eosinophils # (auto) 0 10 ^3/uL (0-0.8); Eosinophils % (auto) 0.1 % (0.0-7.0); Hematocrit 34.8 % (36.0-46.0); Hemoglobin 10.9 g/dL (12.2-16.2); Lymphocytes # (auto) 0.5 10 ^3/uL (0.4-5.4); Lymphocytes % (auto) 10.5 % (10.0-50.0); Mean Corpuscular Hemoglobin 28.3 pg (28.0-32.0); Mean Corpuscular Hgb Conc. 31.2 g/dL (32.0-36.0); Mean Corpuscular Volume 90.7 fL (80.0-100.0); Monocytes # (auto) 0.2 10 ^3/uL (0-1.3); Monocytes % (auto) 5.1 % (0.0-12.0); Neutrophils # (auto) 4.1 10 ^3/uL (1.6-8.6); Neutrophils % (auto) 84.1 % (37.0-80.0); Nucleated Red Blood Cells % 0.1 %; Red Blood Cells 3.83 10^6/uL (4.0-5.20); Red Cell Distribution Width 17.8 % (11.8-14.3); White Blood Cell 4.9 10^3/uL (4.4-10.8)
[2022-06-28 03:20] VITALS: BP 147/78
[2022-06-28 03:28] LABS: Calcium 7.5 mg/dL (8.5-10.1); Potassium 3.7 mmol/L (3.5-5.1)
[2022-06-28 03:29] LABS: Alcohol, Urine < 3.0 mg/dL (0-10); Amphetamine Screen, Urine NEGATIVE (NEGATIVE); Barbiturate Scree,Urine NEGATIVE (NEGATIVE); Benzodiazephine Screen, Urine POSITIVE (NEGATIVE); Cannabinoid Screen, Urine NEGATIVE (NEGATIVE); Cocaine Screen, Urine NEGATIVE (NEGATIVE); Phencyclidine Screen, Urine NEGATIVE (NEGATIVE)
[2022-06-28 03:33] LABS: BUN/Creatinine Ratio 31.1; Bilirubin, Total 0.6 mg/dL (0.2-1.0); Total Protein 7.7 g/dL (6.4-8.2)
[2022-06-28 03:37] LABS: Opiate Scree,Urine NEGATIVE (NEGATIVE)
[2022-06-28 03:55] LABS: Urine Bacteria NONE SEEN /hpf (None Seen); Urine Blood Negative /uL (Negative); Urine Mucus FEW (None Seen); Urine WBC 1 /hpf (0 - 5)
[2022-06-28] MEDS: methylPREDNISolone SOD SUCC 40 MG/ML VL IV SCH ×2 (06:00→14:30)
[2022-06-28] MEDS: SODIUM CHLOR 0.9% PF (SALINE LOCK) 10ML VIAL/SYR IV SCH ×2 (06:00→14:30)
[2022-06-28 06:10] VITALS: BP 134/87
[2022-06-28 08:00] VITALS: BP 139/87
[2022-06-28] MEDS: LEVOTHYROXINE SODIUM 50 MCG TAB PO SCH (08:01)
[2022-06-28] MEDS: InsuLIN REG 1unit/0.01ml Soln (100units/ml) SC SCH ×3 (08:04→17:35)
[2022-06-28] MEDS: ACCU-CHEK COMFORT CURVE STRIP VI SCH ×3 (08:05→17:35)
[2022-06-28] MEDS: FAMOTIDINE (10MG/ML) 2ML VL IV SCH (10:12)
[2022-06-28] MEDS: IBUPROFEN 600 MG TAB PO PRN (10:14)
[2022-06-28] MEDS: ALPRAZolam 0.25 MG TAB PO PRN (12:46)
[2022-06-29] VITALS: BP 140/89
[2022-06-29] MEDS: InsuLIN REG 1unit/0.01ml Soln (100units/ml) SC SCH ×5 (00:16→22:27)
[2022-06-29] MEDS: FAMOTIDINE (10MG/ML) 2ML VL IV SCH ×3 (00:17→22:25)
[2022-06-29] MEDS: methylPREDNISolone SOD SUCC 40 MG/ML VL IV SCH ×4 (00:17→22:25)
[2022-06-29] MEDS: SODIUM CHLOR 0.9% PF (SALINE LOCK) 10ML VIAL/SYR IV SCH ×4 (00:18→22:25)
[2022-06-29] MEDS: ACCU-CHEK COMFORT CURVE STRIP VI SCH ×5 (00:18→22:26)
[2022-06-29 00:54] VITALS: BP 140/89
[2022-06-29 05:00] VITALS: BP 151/75
[2022-06-29] MEDS: LEVOTHYROXINE SODIUM 50 MCG TAB PO SCH (05:49)
[2022-06-29] MEDS: IBUPROFEN 600 MG TAB PO PRN (05:57)
[2022-06-29 06:45] LABS: Basophils # (auto) 0 10 ^3/uL (0-0.2); Basophils % (auto) 0.1 % (0.0-2.0); Eosinophils # (auto) 0 10 ^3/uL (0-0.8); Hematocrit 34.6 % (36.0-46.0); Hemoglobin 11.1 g/dL (12.2-16.2); Lymphocytes # (auto) 0.5 10 ^3/uL (0.4-5.4); Lymphocytes % (auto) 9.3 % (10.0-50.0); Mean Corpuscular Hemoglobin 28.3 pg (28.0-32.0); Mean Corpuscular Hgb Conc. 32.3 g/dL (32.0-36.0); Mean Corpuscular Volume 87.6 fL (80.0-100.0); Monocytes # (auto) 0.2 10 ^3/uL (0-1.3); Monocytes % (auto) 3.4 % (0.0-12.0); Neutrophils # (auto) 4.9 10 ^3/uL (1.6-8.6); Neutrophils % (auto) 87.2 % (37.0-80.0); Red Blood Cells 3.94 10^6/uL (4.0-5.20); Red Cell Distribution Width 17.6 % (11.8-14.3); White Blood Cell 5.6 10^3/uL (4.4-10.8)
[2022-06-29 07:02] LABS: Albumin 3.2 g/dL (3.4-5.0); Calcium 8.1 mg/dL (8.5-10.1); Potassium 3.8 mmol/L (3.5-5.1)
[2022-06-29 07:06] LABS: BUN/Creatinine Ratio 30.4; Bilirubin, Total 0.7 mg/dL (0.2-1.0); Total Protein 7.9 g/dL (6.4-8.2)
[2022-06-29 08:37] VITALS: BP 161/90
[2022-06-29] MEDS: hydrALAZINE HCL 20 MG/ML VL IV PRN (08:47)
[2022-06-29] MEDS: ALPRAZolam 0.25 MG TAB PO PRN (11:16)
[2022-06-29] MEDS ORDERED: CYA100I IM (13:56)
[2022-06-29] MEDS ORDERED: CHLO25CA56 PO (13:56)
[2022-06-29] MEDS ORDERED: CHOL20007 PO (13:56)
[2022-06-29] MEDS ORDERED: TRAZ100T3 PO (13:56)
[2022-06-29] MEDS ORDERED: DOCUSATE SOD 100 MG CAP PO PRN (16:00)
[2022-06-29] MEDS: METHADONE HCL 10 MG TAB PO SCH (16:15)
[2022-06-29 16:50] VITALS: BP 149/89
[2022-06-29] MEDS ORDERED: ALBUTEROL SULF 2.5 MG/0.5ML(0.5%) NEB SOLN NEB PRN (18:00)
[2022-06-29] MEDS: traZODone HCL 50 MG TAB PO SCH (18:00)
[2022-06-29] MEDS ORDERED: METHADONE HCL 10 MG TAB PO ONE (18:00)
[2022-06-29 22:00] VITALS: BP 150/93
[2022-06-29] MEDS: GABAPENTIN 300 MG CAP PO SCH (22:26)
[2022-06-29] MEDS: CARVEDILOL 3.125 MG TAB PO SCH (22:26)
[2022-06-30 05:00] VITALS: BP 155/100
[2022-06-30] MEDS: SODIUM CHLOR 0.9% PF (SALINE LOCK) 10ML VIAL/SYR IV SCH ×3 (06:00→20:43)
[2022-06-30] MEDS: GABAPENTIN 300 MG CAP PO SCH ×3 (06:01→22:38)
[2022-06-30] MEDS: methylPREDNISolone SOD SUCC 40 MG/ML VL IV SCH ×3 (06:01→22:43)
[2022-06-30] MEDS: LEVOTHYROXINE SODIUM 100 MCG TAB PO SCH (06:01)
[2022-06-30] MEDS: LEVOTHYROXINE SODIUM 50 MCG TAB PO SCH (06:02)
[2022-06-30] MEDS: InsuLIN REG 1unit/0.01ml Soln (100units/ml) SC SCH ×4 (06:03→20:43)
[2022-06-30] MEDS: ACCU-CHEK COMFORT CURVE STRIP VI SCH ×4 (06:04→20:43)
[2022-06-30] MEDS: HYDROcodone-ACET 10/325MG TAB PO PRN (06:17)
[2022-06-30] MEDS: hydrALAZINE HCL 20 MG/ML VL IV PRN (06:18)
[2022-06-30 08:37] VITALS: BP 139/83
[2022-06-30] MEDS: CHOLECALCIFEROL (VITD3) 2,000 UNIT CAP/TAB PO SCH (10:00)
[2022-06-30] MEDS: METHADONE HCL 10 MG TAB PO SCH (10:29)
[2022-06-30] MEDS: NICOTINE 21MG/24 HR TOPICAL PATCH TD SCH (10:29)
[2022-06-30] MEDS: chlordiazePOXIDE HCL 25 MG CAP PO SCH (10:29)
[2022-06-30] MEDS: FUROSEMIDE 40 MG TAB PO SCH (10:31)
[2022-06-30] MEDS: FAMOTIDINE (10MG/ML) 2ML VL IV SCH ×2 (10:32→22:42)
[2022-06-30] MEDS: CARVEDILOL 3.125 MG TAB PO SCH ×2 (10:32→22:37)
[2022-06-30] MEDS: LOSARTAN POTASSIUM 25 MG TAB GT SCH (10:33)
[2022-06-30 16:49] VITALS: BP 135/88
[2022-06-30] MEDS: traZODone HCL 50 MG TAB PO SCH (18:00)
[2022-06-30] MEDS: BUDESONIDE (INHALATION) 0.5 MG/2 ML NEB NEB SCH (21:53)
[2022-06-30] MEDS: ALBUTEROL SULF 2.5 MG/0.5ML(0.5%) NEB SOLN NEB PRN (21:53)
[2022-06-30] MEDS: IPRATROPIUM BROM 0.5 MG/2.5ML INH SOL NEB PRN (21:53)
[2022-06-30 22:00] VITALS: BP 158/87
[2022-06-30 22:53] VITALS: BP 135/88
[2022-07-01] MEDS: HYDROcodone-ACET 10/325MG TAB PO PRN (01:54)
[2022-07-01 05:00] VITALS: BP 131/76
[2022-07-01] MEDS: GABAPENTIN 300 MG CAP PO SCH ×2 (06:40→14:09)
[2022-07-01] MEDS: LEVOTHYROXINE SODIUM 100 MCG TAB PO SCH (06:40)
[2022-07-01] MEDS: methylPREDNISolone SOD SUCC 40 MG/ML VL IV SCH ×2 (06:44→14:09)
[2022-07-01] MEDS: ACCU-CHEK COMFORT CURVE STRIP VI SCH ×3 (06:46→17:24)
[2022-07-01] MEDS: InsuLIN REG 1unit/0.01ml Soln (100units/ml) SC SCH ×3 (06:48→17:24)
[2022-07-01 08:00] VITALS: BP 136/70
[2022-07-01 08:31] VITALS: BP 136/70
[2022-07-01] MEDS: ALBUTEROL SULF 2.5 MG/0.5ML(0.5%) NEB SOLN NEB PRN ×3 (09:11→17:50)
[2022-07-01] MEDS: IPRATROPIUM BROM 0.5 MG/2.5ML INH SOL NEB PRN ×3 (09:11→17:50)
[2022-07-01] MEDS: BUDESONIDE (INHALATION) 0.5 MG/2 ML NEB NEB SCH ×2 (09:30→17:50)
[2022-07-01] MEDS: FAMOTIDINE (10MG/ML) 2ML VL IV SCH (10:30)
[2022-07-01] MEDS: SODIUM CHLOR 0.9% PF (SALINE LOCK) 10ML VIAL/SYR IV SCH ×2 (10:30→14:08)
[2022-07-01] MEDS: LOSARTAN POTASSIUM 25 MG TAB GT SCH (10:30)
[2022-07-01] MEDS: FUROSEMIDE 40 MG TAB PO SCH (10:31)
[2022-07-01] MEDS: CARVEDILOL 3.125 MG TAB PO SCH (10:31)
[2022-07-01] MEDS: METHADONE HCL 10 MG TAB PO SCH (10:31)
[2022-07-01] MEDS: chlordiazePOXIDE HCL 25 MG CAP PO SCH (10:31)
[2022-07-01] MEDS: CHOLECALCIFEROL (VITD3) 2,000 UNIT CAP/TAB PO SCH (10:31)
[2022-07-01] MEDS: NICOTINE 21MG/24 HR TOPICAL PATCH TD SCH (10:35)
[2022-07-01 13:09] VITALS: BP 143/93
[2022-07-01 17:14] VITALS: BP 143/93
== END 2022-07-01 17:51 | disposition home or self-care (01) | DRG 140 ==
LOC: ER 20:46 → EDUNIT# 20:46 → EDBD 20:46 → TELE 06-28 02:36 → TELE-EAST 06-28 23:55
PROVIDERS: ADMIT Nurse Practitioner Family; ATTEND Nurse Practitioner
PROC: 5A09357 Assistance with Respiratory Ventilation, Less than 24 Consecutive Hours, Continuous Positive Airway Pressure (ICD-10-PCS; principal; 2022-06-28)
DX: J44.1 Chronic obstructive pulmonary disease with (acute) exacerbation (principal); J96.01 Acute respiratory failure with hypoxia; I50.23 Acute on chronic systolic (congestive) heart failure; I11.0 Hypertensive heart disease with heart failure; E66.01 Morbid (severe) obesity due to excess calories; Z68.41 Body mass index [BMI] 40.0-44.9, adult; J98.11 Atelectasis; F17.210 Nicotine dependence, cigarettes, uncomplicated; G89.29 Other chronic pain; E78.5 Hyperlipidemia, unspecified; R79.89 Other specified abnormal findings of blood chemistry; E11.65 Type 2 diabetes mellitus with hyperglycemia; I50.9 Heart failure, unspecified; Z80.8 Family history of malignant neoplasm of other organs or systems; Z82.49 Family history of ischemic heart disease and other diseases of the circulatory system; Z82.62 Family history of osteoporosis; Z83.3 Family history of diabetes mellitus; Z86.73 Personal history of transient ischemic attack (TIA), and cerebral infarction without residual deficits
CPT/HCPCS: 36415; 36600; 71045; 80053; 80307; 81001; 82805; 82962; 83036; 83880; 84443; 84484; 85025; 87426; 94640; 94660; 96374; 96375; G0378; J1815; J2405; J3490

== ENCOUNTER 2023-02-08 12:00 | Emergency (ER) | payer MEDICAID ==
[~2023-02-08] VITALS: Ht 152.4 cm; Wt 113.0 kg
[~2023-02-08 12:00] MED LIST changes: -AZIT250T9 PO; +CHLO25CA56 PO; +CYA100I IM; -LOS25T GT; -PRED20TA2 PO; +TRAZ100T3 PO
[2023-02-08] MEDS ORDERED: HYDROcodone-ACET 10/325MG TAB PO ONE (13:15)
[2023-02-08 13:38] LABS: Basophils # (auto) 0 10 ^3/uL (0-0.2); Basophils % (auto) 1.2 % (0.0-2.0); Eosinophils # (auto) 0 10 ^3/uL (0-0.8); Eosinophils % (auto) 0.9 % (0.0-7.0); Hematocrit 34.3 % (36.0-46.0); Hemoglobin 11.6 g/dL (12.2-16.2); Lymphocytes # (auto) 1.1 10 ^3/uL (0.4-5.4); Lymphocytes % (auto) 32.7 % (10.0-50.0); Mean Corpuscular Hemoglobin 29.6 pg (28.0-32.0); Mean Corpuscular Hgb Conc. 33.9 g/dL (32.0-36.0); Mean Corpuscular Volume 87.1 fL (80.0-100.0); Monocytes # (auto) 0.3 10 ^3/uL (0-1.3); Monocytes % (auto) 7.6 % (0.0-12.0); Neutrophils # (auto) 1.9 10 ^3/uL (1.6-8.6); Neutrophils % (auto) 57.6 % (37.0-80.0); Nucleated Red Blood Cells % 0.4 %; Red Blood Cells 3.94 10^6/uL (4.0-5.20); Red Cell Distribution Width 15.6 % (11.8-14.3); White Blood Cell 3.3 10^3/uL (4.4-10.8)
[2023-02-08 13:48] LABS: BUN/Creatinine Ratio 23.2 (10.0-20.0); Calcium 8.4 mg/dL (8.5-10.1); Potassium 4.1 mmol/L (3.5-5.1)
[2023-02-08 13:52] LABS: Bilirubin, Total 0.5 mg/dL (0.2-1.0); Total Protein 8.4 g/dL (6.4-8.2)
[2023-02-08 13:53] LABS: INR 1.21 (0.9-1.15); Partial Thromboplastin Time 30.5 sec (24.6-33.4)
[2023-02-08] MEDS ORDERED: CEFTRIAXONE SODIUM 2 GM in D5W 5% 100 ML IV ONE (14:45)
[2023-02-08] MEDS ORDERED: HYDROmorphone HCL 2 MG/ML VL/or syr IV ONE (15:00)
[2023-02-08] MEDS: TETANUS-DIPTH-ACEL PERTUSSIS 0.5ML SYR Tdap IM ONE ×2 (15:46→15:51)
[2023-02-08] MEDS ORDERED: SODIUM CHLORIDE 0.9% 1,000 ML IV ONE (17:00)
[2023-02-08] MEDS ORDERED: ONDANSETRON HCL 4 MG/2 ML VIAL IV ONE (18:15)
[2023-02-08] MEDS ORDERED: MORPHINE SULFATE INJ 2 MG/ml SYRG IV ONE (18:15)
[2023-02-08 18:28] VITALS: BP 110/66
== END 2023-02-08 19:05 | disposition short-term general hospital (02) ==
LOC: ER 12:00 → EDBD 12:00 → ER 19:05
DX: S71.111A Laceration without foreign body, right thigh, initial encounter (principal); R26.89 Other abnormalities of gait and mobility; I11.0 Hypertensive heart disease with heart failure; I50.9 Heart failure, unspecified; E11.9 Type 2 diabetes mellitus without complications; E78.5 Hyperlipidemia, unspecified; E03.9 Hypothyroidism, unspecified; F17.210 Nicotine dependence, cigarettes, uncomplicated; Z86.73 Personal history of transient ischemic attack (TIA), and cerebral infarction without residual deficits; Z79.899 Other long term (current) drug therapy; W18.39XA Other fall on same level, initial encounter; Y93.89 Activity, other specified; Y92.89 Other specified places as the place of occurrence of the external cause; Y99.8 Other external cause status
CPT/HCPCS: 36415; 70450; 71250; 72125; 74176; 80053; 84484; 85025; 85610; 85730; 96365; 96375; 99285; J0696; J1170; J2270; J2405; J7060; 90715

== ENCOUNTER → 2025-02-02 | Day surgery (SDC) | payer MEDICAID ==
[2025-02-01 14:43] LABS: Basophils # (auto) 0 10 ^3/uL (0-0.2); Basophils % (auto) 0.6 % (0.0-2.0); Eosinophils # (auto) 0 10 ^3/uL (0-0.8); Eosinophils % (auto) 0.9 % (0.0-7.0); Hematocrit 40.4 % (36.0-46.0); Hemoglobin 13.2 g/dL (12.2-16.2); Lymphocytes # (auto) 0.5 10 ^3/uL (0.4-5.4); Lymphocytes % (auto) 12.7 % (10.0-50.0); Mean Corpuscular Hemoglobin 29.1 pg (28.0-32.0); Mean Corpuscular Hgb Conc. 32.7 g/dL (32.0-36.0); Monocytes # (auto) 0.3 10 ^3/uL (0-1.3); Monocytes % (auto) 7.5 % (0.0-12.0); Neutrophils # (auto) 3.2 10 ^3/uL (1.6-8.6); Neutrophils % (auto) 78.3 % (37.0-80.0); Platelet Count (auto) 148 10^3/uL (140-450); Red Blood Cells 4.54 10^6/uL (4.0-5.20); Red Cell Distribution Width 15.8 % (11.8-14.3); White Blood Cell 4.1 10^3/uL (4.4-10.8)
[2025-02-01 15:03] LABS: INR 1.11 (0.9-1.15); Partial Thromboplastin Time 25.9 SEC (24.5-34.5); Prothrombin Time 11.6 sec (9.3-11.8)
[2025-02-01 15:16] LABS: Alanine Aminotransferase 34 U/L (7-40); Alkaline Phosphatase 82 U/L (46-116); Anion Gap 3 (5-15); Aspartate Aminotransferase 28 U/L (13-40); BUN/Creatinine Ratio 20.3 (10.0-20.0); Blood Urea Nitrogen 16 mg/dL (9-23); Calcium 9.3 mg/dL (8.7-10.4); Chloride 105 mmol/L (98-107); Glucose 85 mg/dL (74-106); Potassium 4.6 mmol/L (3.5-5.1); Sodium 140 mmol/L (136-145); Total Protein 7.9 g/dL (5.7-8.2)
[2025-02-01 15:17] LABS: Albumin 4.2 g/dL (3.2-4.8); Bilirubin, Total 0.5 mg/dL (0.2-1.0); Carbon Dioxide 32 mmol/L (20-31)
[~2025-02-02] VITALS: Ht 152.4 cm; Wt 102.1 kg
[~2025-02-02] MED LIST changes: -ACLI1AER2 IN; -ALBU0.084 NEB; -AMLO-496 PO; +ATOR20TA PO; +BUPIVACAINE 0.5% P/F INJ 10 ML VIAL ONE; -CAR3125T OR; -CHLO25CA56 PO; +CHOL20007 OR; -CHOL20007 PO; -CYA100I IM; -CYAN-17 PO; +DILT-29 PO; -DOCU100C10 PO; +DOCU240C23 PO; -FAMO-12 PO; +FER325T PO; +GABA-1250 PO; -GABA300C10 PO; -HYDR-531 PO; -IPRIH IN; +LIDOCAINE W/ EPINEPHRINE 1% 20ML VIAL ONE; +LORA-1121 GT; -LOSA25TA38 PO; +MET50T GT; +MORP30TA PO; +MULT-1018 PO; -NIC21P TOP; -OMEP-260 PO; +OMEP1CAP70 PO; +PERCOT PO; +POTA-36 PO; -POTA10TA51 PO; +ROFL1TAB2 PO; +SPIR50TA5 PO; -TRAZ100T3 PO; +ZOLP12.569 PO
[2025-02-02 08:07] VITALS: BP 91/49; PULSE 70; RESP 12; TEMP 97.1; O2SAT 100
== END | disposition home or self-care (01) ==
LOC: SUR 07:01
PROVIDERS: ATTEND Surgery
DX: R22.0 Localized swelling, mass and lump, head (principal); Z53.8 Procedure and treatment not carried out for other reasons; C44.329 Squamous cell carcinoma of skin of other parts of face; I11.0 Hypertensive heart disease with heart failure; I50.9 Heart failure, unspecified; I20.89 Other forms of angina pectoris; E03.9 Hypothyroidism, unspecified; J44.9 Chronic obstructive pulmonary disease, unspecified; G47.30 Sleep apnea, unspecified; M19.90 Unspecified osteoarthritis, unspecified site; F17.210 Nicotine dependence, cigarettes, uncomplicated; E66.9 Obesity, unspecified; Z68.41 Body mass index [BMI] 40.0-44.9, adult; Z82.61 Family history of arthritis; Z80.8 Family history of malignant neoplasm of other organs or systems; Z83.42 Family history of familial hypercholesterolemia
CPT/HCPCS: 36415; 80053; 85025; 85610; 85730; J3490

== ENCOUNTER 2025-02-23 08:35 | Day surgery (SDC) | payer MEDICAID ==
[2025-02-22 11:42] LABS: Basophils # (auto) 0 10 ^3/uL (0-0.2); Basophils % (auto) 1.2 % (0.0-2.0); Eosinophils # (auto) 0.1 10 ^3/uL (0-0.8); Eosinophils % (auto) 1.6 % (0.0-7.0); Hematocrit 40.6 % (36.0-46.0); Hemoglobin 13.6 g/dL (12.2-16.2); Lymphocytes # (auto) 0.8 10 ^3/uL (0.4-5.4); Lymphocytes % (auto) 18.9 % (10.0-50.0); Mean Corpuscular Hemoglobin 29.8 pg (28.0-32.0); Mean Corpuscular Hgb Conc. 33.4 g/dL (32.0-36.0); Mean Corpuscular Volume 89.1 fL (80.0-100.0); Monocytes # (auto) 0.4 10 ^3/uL (0-1.3); Monocytes % (auto) 10.1 % (0.0-12.0); Neutrophils # (auto) 2.7 10 ^3/uL (1.6-8.6); Neutrophils % (auto) 68.2 % (37.0-80.0); Nucleated Red Blood Cells % 0.2 %; Platelet Count (auto) 169 10^3/uL (140-450); Red Blood Cells 4.56 10^6/uL (4.0-5.20); Red Cell Distribution Width 16.1 % (11.8-14.3)
[2025-02-22 11:56] LABS: INR 1.14 (0.9-1.15); Partial Thromboplastin Time 27.3 SEC (24.5-34.5); Prothrombin Time 11.9 sec (9.3-11.8)
[2025-02-22 12:30] LABS: Alanine Aminotransferase 33 U/L (7-40); Albumin 4.2 g/dL (3.2-4.8); Alkaline Phosphatase 82 U/L (46-116); Anion Gap 3 (5-15); Aspartate Aminotransferase 33 U/L (13-40); BUN/Creatinine Ratio 29.1 (10.0-20.0); Bilirubin, Total 0.4 mg/dL (0.2-1.0); Blood Urea Nitrogen 23 mg/dL (9-23); Calcium 9.7 mg/dL (8.7-10.4); Chloride 105 mmol/L (98-107); Glucose 84 mg/dL (74-106); Potassium 4.6 mmol/L (3.5-5.1); Sodium 141 mmol/L (136-145)
[2025-02-22 12:32] LABS: Carbon Dioxide 33 mmol/L (20-31); Total Protein 8.5 g/dL (5.7-8.2)
[~2025-02-23] VITALS: Ht 152.4 cm; Wt 102.1 kg
[~2025-02-23 08:35] MED LIST changes: -BUPIVACAINE 0.5% P/F INJ 10 ML VIAL ONE; -LIDOCAINE W/ EPINEPHRINE 1% 20ML VIAL ONE
[2025-02-23] MEDS ORDERED: DexAMETHasone SOD PHOS 10MG/1ML VIAL INJ ONE ×2 (09:42→14:37)
[2025-02-23] MEDS ORDERED: KETOROLAC TROMETH 30 MG/ML 1ML VIAL ONE (09:42)
[2025-02-23] MEDS ORDERED: LIDOCAINE 1% INJ PF 5ML AMP ONE (09:42)
[2025-02-23] MEDS ORDERED: ONDANSETRON HCL 4 MG/2 ML VIAL ONE (09:42)
[2025-02-23] MEDS ORDERED: PROPOFOL 10 MG/ML 20 ML IV ONE ×2 (09:43→14:37)
[2025-02-23] MEDS ORDERED: GLYCOPYRROLATE 0.2 MG/ML 1ML VIAL ONE (09:43)
[2025-02-23] MEDS ORDERED: ePHEDrine SULFATE 50 MG/ML AMP ONE (09:51)
[2025-02-23] MEDS ORDERED: ceFAZolin 2 GM/D5W50ml 50 ML IV ONE (10:16)
[2025-02-23] MEDS ORDERED: fentaNYL CITRATE 100 MCG/2 ML VL ONE (14:06)
[2025-02-23] MEDS ORDERED: MIDAZOLAM HCL 2MG/2ML 2ml VIAL (1mg/ml) ONE (14:06)
[2025-02-23] MEDS ORDERED: LIDOCAINE W/ EPINEPHRINE 2% INJ 20ML VIAL ONE (14:07)
[2025-02-23 15:05] VITALS: PULSE 70; RESP 12; TEMP 98.4; O2SAT 97
[2025-02-23] MEDS: BUPIVACAINE 0.5% MPF INJ 30ML SDV IJ ONE (15:09)
--- NOTE | 2025-02-23 15:23 | DVHOP ---
DATE OF SURGERY: 02/23/2025 PREOPERATIVE DIAGNOSIS: Cancer left upper lid/eyebrow. SURGEON: Floyd Rehman MD KETTLE COOK: Kyle Elkins NP ANESTHESIA: Local with IV sedation, Dr. Huizar. PROCEDURE: Excision of tumor, left upper eyelid/eyebrow. DESCRIPTION OF PROCEDURE: Under adequate sedation with the patient's skin prepped and draped and infiltrated with 0.25% Marcaine and 0.5% Xylocaine to assist with hemostasis and postoperative discomfort, the tumor was excised in its entirety without regard to margins due to the fact that the tumor encroached upon the upper eyelid and excision to adequate margins would compromise the lid function and expose the eye to desiccation. The tumor was excised in its entirety and submitted for histopathologic examination. No orientation of the tumor was accomplished due to the fact that the margins are not pertinent. Wound was irrigated. Hemostasis was accomplished and closure accomplished utilizing 5-0 Prolene suture. The patient remained stable throughout the procedure, left the operating room following an accurate needle and sponge counts. Family was thoroughly informed in the waiting room. MD CINDY Mansfield/CHARLA TID: [id number] RECEIPT: [id number]
== END 2025-02-23 16:00 | disposition home or self-care (01) ==
LOC: SUR 08:35
PROVIDERS: ATTEND Surgery
DX: C44.329 Squamous cell carcinoma of skin of other parts of face (principal); J44.9 Chronic obstructive pulmonary disease, unspecified; I10 Essential (primary) hypertension; E78.00 Pure hypercholesterolemia, unspecified; E66.01 Morbid (severe) obesity due to excess calories; G47.33 Obstructive sleep apnea (adult) (pediatric); E03.9 Hypothyroidism, unspecified; Z98.891 History of uterine scar from previous surgery; Z98.890 Other specified postprocedural states; Z86.19 Personal history of other infectious and parasitic diseases; Z68.41 Body mass index [BMI] 40.0-44.9, adult; Z79.890 Hormone replacement therapy; Z79.899 Other long term (current) drug therapy
CPT/HCPCS: 11643; 36415; 80053; 85025; 85610; 85730; 88305; J0690; J1100; J2250; J2704; J3010; J3490; J1885; J2405